=== PATIENT | male | born 1965 | race Caucasian/White ===

== ENCOUNTER 2017-12-31 16:42 | Emergency (ER) | payer SELFPAY ==
[2017-12-31 17:25] VITALS: BMI 20.3
[2017-12-31] MEDS ORDERED: SODIUM CHLORIDE 1,000 ML IV STA ×2 (18:56→20:34)
[2017-12-31] MEDS ORDERED: ACETAMINOPHEN 1000 MG/100 ML VIAL (NON FORMULARY) IVPB ONE (18:59)
[2017-12-31] MEDS ORDERED: ONDANSETRON 4 MG/2 ML VIAL IVPUSH ONE (18:59)
--- NOTE | 2017-12-31 18:59 | PDOC ---
History of Present Illness - General Chief Complaint: Shortness of Breath Stated Complaint: PCP SENT Time Seen by Provider: 12/31/17 17:44 History Source: Patient, Spouse Exam Limitations: No Limitations - History of Present Illness Initial Comments: This is a 52 YOM with h/o diet-controlled DM who p/w one week of fever, chills, nausea, decreased appetite, frequent cough productive of blood-tinged sputum, head-to-toe body aches, generalized weakness, shortness of breath, abdominal pain only when coughing, and frontal headache which has been worsening especially today. He went to see his PCP yesterday and was instructed to come into the ED if his symptoms did not improve (states no testing done in office). He has been using Tylenol and Motrin sporadically for the symptoms with minimal relief. He denies any recent sick contacts or other symptoms. Past History - Past Medical History Allergies/Adverse Reactions: Allergies Allergy/AdvReac Type Severity Reaction Status Date / Time No Known Allergies Allergy Verified 06/11/14 14:07 Home Medications: Ambulatory Orders No Home Medications 0 dose .ROUTE UTDICT 06/11/14 Amoxicillin/Potassium Clav [Augmentin 875-125 Tablet] 1 each PO BID #8 tablet Azithromycin 250 mg PO DAILY #4 tablet 12/31/17 Metformin HCl 500 mg PO BID #30 tablet 12/31/17 Metformin HCl [Glucophage -] 500 mg PO DAILY #30 tablet 12/31/17 COPD: No Diabetes: Yes - Suicide/Smoking/Psychosocial Hx Smoking History: Never smoked Hx Alcohol Use: No Drug/Substance Use Hx: No Substance Use Type: None *Physical Exam - Vital Signs Last Vital Signs Temp Pulse Resp BP Pulse Ox 99.1 F 86 18 117/77 95 12/31/17 17:22 12/31/17 18:00 12/31/17 18:00 12/31/17 18:00 12/31/17 18:00 - Physical Exam General Appearance: Yes: Nourished, Appropriately Dressed, Mild Distress, Thin, Other (dehydrated-appearing, Montenegrin-speaking adult male who is pleasant, frequently coughing with wet cough, but speaking in full sentences) HEENT: positive: EOMI, Normal Voice, Hearing Grossly Normal. negative: Scleral Icterus (R), Scleral Icterus (L), Nasal Congestion Neck: positive: Trachea midline, Supple. negative: Tender, Rigid Respiratory/Chest: positive: Respiratory Distress, Rapid RR, Crackles, Rales. negative: Accessory Muscle Use, Rhonchi, Stridor, Wheezing Cardiovascular: positive: Regular Rhythm, Regular Rate, S1, S2. negative: Edema , JVD, Murmur Gastrointestinal/Abdominal: positive: Normal Bowel Sounds, Flat, Soft. negative : Tender, Organomegaly, Pulsatile Mass, Guarding Musculoskeletal: positive: Normal Inspection. negative: Decreased Range of Motion, Vertebral Tenderness Extremity: positive: Normal Capillary Refill, Normal Inspection, Normal Range of Motion. negative: Tender, Cyanosis Integumentary: positive: Normal Color, Dry, Warm. negative: Erythema, Rash, Bruising Neurologic: positive: primary therapist II-XII NML intact (grossly), Fully Oriented, Alert, Normal Mood/Affect, Normal Response, Motor Strength 03/31 ED Treatment Course - LABORATORY CBC & Chemistry Diagram: 12/31/17 Unknown 12/31/17 Unknown Medical Decision Making - Medical Decision Making 52 YOM with h/o DM (states diet controlled) who p/w 1 week wet cough, fever, myalgias, SOB. On exam initially he is tachycardic, hypoxic on RA, frequent cough. DDX IBNLT PNA, bronchitis, influenza, viral URI, CHF or COPD exacerbation, etc. Ordered is CBCD CMP lactate BCx VBG BNP cardiac panel EKG CXR Ofluis alberto Roberts. 12/31/17 20:37 Patient's CXR shows RLL consolidation. WBC 14.0, lactate neg, glucose 378. Patient given doses of Augmentin, azithromycin, and metformin (which he was on previously). Also giving 1 liter IVF. 12/31/17 21:21 Patient had DuoNeb treatment and no longer is coughing, crackles much improved. He is comfortable with the plan to f/u with his PCP. E-Rx sent to Pt's pharmacy for Augmentin, Azithromycin, metformin. Return precautions are discussed. 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 Hicimos unas pruebas del laboratorio de la castillo y orina y los resultados dicen que tiene infeccion ( pneumonia) y tambien tiene un nivel muy alto de azucar. Le dimos unos antibioticos aqui, y tambien haritha pastilla de Metformin. Por favor obtenga las pastillas de nair farmacia. Estamos mandando unas recetas para dos antibioticos y para metformin. Es importante empezar metformin ahora, y hacer haritha eh con nair doctor primario para manana. Regrese a la kamryn de emergencias si tiene alguna sintoma nueva o que empeora. Print Language: GERMAN - Post Discharge Activity
[2017-12-31] MEDS ORDERED: ONDANSETRON 4 MG/2 ML VIAL ONE (19:09)
[2017-12-31] MEDS ORDERED: ACETAMINOPHEN INJECTION 100 ML IVPB ONE (19:10)
[2017-12-31 19:14] LABS: VENOUS PC02 43.7 mmHg (38-52); VENOUS PH 7.4 (7.32-7.42); VENOUS PO2 33.1 mmHg (28-48)
[2017-12-31 19:21] LABS: HEMATOCRIT 37.5 % (35.4-49); HEMOGLOBIN 12.5 GM/dL (11.7-16.9); MCH 30.5 pg (25.7-33.7); MCHC 33.4 g/dl (32.0-35.9); MEAN CELL VOLUME 91.4 fl (80-96); MEAN PLT VOLUME 9.1 fl (7.5-11.1); PLATELET COUNT 232 K/MM3 (134-434); RDW 13.5 % (11.9-15.9)
[2017-12-31 19:47] LABS: ALBUMIN 2.3 g/dl (3.4-5.0); ANION GAP 8 (8-16); BLOOD UREA NITROGEN 23 mg/dL (7-18); CALCIUM 7.8 mg/dL (8.5-10.1); CHLORIDE 97 mmol/L (98-107); CO2 28 mmol/L (21-32); CREATININE 0.9 mg/dL (0.7-1.3); SGOT/AST 52 U/L (15-37); SGPT/ALT 57 U/L (12-78); SODIUM 133 mmol/L (136-145)
[2017-12-31 19:50] LABS: ALK PHOS 196 U/L (45-117); BILIRUBIN,TOTAL 1.7 mg/dL (0.2-1.0); TOT PROT 6.1 g/dl (6.4-8.2)
--- NOTE | 2017-12-31 19:50 | PDOC ---
Attending Attestation - Resident Resident Name: RakeshTrudi - ED Attending Attestation I have performed the following: I have examined & evaluated the patient, The case was reviewed & discussed with the resident, I agree w/resident's findings & plan, Exceptions are as noted - HPI HPI: 12/31/17 19:50 52 yo male p/w 7 days of fever,production cough,body aches,nausea - Physicial Exam PE: 12/31/17 19:50 52 yo male p/w productive cough head ncat neck supple lungs no wheezing cvs [id number] abd no rebound ext no e/c/c neuro axox3 skin warm,dry psych appropriate - Medical Decision Making 12/31/17 21:20 pt has CAP and placed on po antibiotics , he stopped taking his metformin and he was encouraged to continue his medications and followup with his PCP
[2017-12-31] MEDS ORDERED: ALBUTEROL SO4 2.5/IPRATROPIUM 0.5 INH SOL 3 ML VIAL.NEB. NEB ONE ×2 (19:52→20:07)
[2017-12-31 20:12] LABS: GLUCOSE,RANDOM 378 mg/dL (74-106)
[2017-12-31 20:24] LABS: N-TERMINAL BNP 932.51 pg/ml (5-125)
[2017-12-31] MEDS ORDERED: AMOX TR/POT CLAV 875MG/125MG TABLETS (FP) PO ONE (20:26)
[2017-12-31] MEDS ORDERED: AZITHROMYCIN 500 MG TABLET PO ONE (20:33)
[2017-12-31] MEDS ORDERED: metFORMIN HCL 500 MG TABLET (FP) PO ONE (20:33)
[2017-12-31] MEDS ORDERED: AZITHROMYCIN 250 MG TABLET ONE (20:39)
[2017-12-31] MEDS ORDERED: metFORMIN HCL 500 MG TABLET (FP) ONE (20:40)
[2017-12-31] MEDS ORDERED: AMOX TR/POT CLAV 875MG/125MG TABLETS (FP) ONE (20:40)
[2017-12-31 21:43] LABS: PLATELET ESTIMATE ADEQUATE; TOXIC GRANULATION 2+
[2017-12-31 22:12] VITALS: BP 112/68; PULSE 88; TEMP 98.4
--- NOTE | 2018-01-01 12:47 | EKG ---
Test Reason : Blood Pressure : / mmHG Vent. Rate : 087 BPM Atrial Rate : 087 BPM P-R Int : 146 ms QRS Dur : 084 ms QT Int : 362 ms P-R-T Axes : 069 017 059 degrees QTc Int : 435 ms NORMAL SINUS RHYTHM POSSIBLE LEFT ATRIAL ENLARGEMENT CANNOT RULE OUT ANTERIOR INFARCT , AGE UNDETERMINED ABNORMAL ECG WHEN COMPARED WITH ECG OF 03-AUG-2010 23:07, T WAVE VARIATION Confirmed by SHEBA NARANJO, ROLANDO ([id number]) on 01/01/2018 12:47:38 PM Referred By: Confirmed By:ROLANDO SCRUGGS MD
== END 2017-12-31 22:12 | disposition home or self-care (01) ==
LOC: JER 16:42
PROC: 3E0F7GC Introduction of Other Therapeutic Substance into Respiratory Tract, Via Natural or Artificial Opening (ICD-10-PCS; principal; 2017-12-31)
PROC: 3E0337Z Introduction of Electrolytic and Water Balance Substance into Peripheral Vein, Percutaneous Approach (ICD-10-PCS; 2017-12-31)
PROC: 3E033NZ Introduction of Analgesics, Hypnotics, Sedatives into Peripheral Vein, Percutaneous Approach (ICD-10-PCS; 2017-12-31)
PROC: 3E033GC Introduction of Other Therapeutic Substance into Peripheral Vein, Percutaneous Approach (ICD-10-PCS; 2017-12-31)
DX: J01.81 Other acute recurrent sinusitis (principal); E11.9 Type 2 diabetes mellitus without complications
CPT/HCPCS: 36415; 71046-TC-FY; 80053; 82550; 82803; 83605; 83880; 84484; 85025; 87040; 87804; 93005; 93010; 99285-25

== ENCOUNTER 2018-01-11 14:01 | Inpatient (IN) | payer MEDICARE, OTHER ==
[2018-01-11 14:44] VITALS: BMI 18.0
--- NOTE | 2018-01-11 14:46 | PDOC ---
Rapid Medical Evaluation Time Seen by Provider: 01/11/18 14:37 Medical Evaluation: Allergies Allergy/AdvReac Type Severity Reaction Status Date / Time No Known Allergies Allergy Verified 01/11/18 14:37 01/11/18 14:42 pt c/o: rt sided chest pain, recent rll pneumonia, hx dm Pt on brief exam: decreased bs to bases, tachy, low grade temp Pt ordered for : influenza, cxr pa/lat pt to proceed to the ED: Discharge Disposition - Diagnosis Right-sided chest pain - Referrals - Patient Instructions - Post Discharge Activity
--- NOTE | 2018-01-11 16:04 | PDOC ---
Attending Attestation - [facility] HPI: 01/11/18 17:01 The patient is a 52 year old male, with a significant past medical history of DM , who presents to the emergency department with cough, right sided chest pain and shortness of breath. The patient reports he was diagnosed with pneumonia in the ED approx. one week ago. The patient reports his cough was mostly productive at first with unspecified sputum. However, he reports the cough has recently been dry. The patient also reports recent chills but denies any recent fevers. The patient reports he has lost approx. 10 lbs in the past two weeks and reports a decreased appetite. He denies any recent nausea, vomiting, constipation or diarrhea. He denies any recent hemoptysis. He denies any recent abdominal pain. Allergies:NKA Documentation prepared by Bladimir Levy, acting as medical front desk specialist for Nemo Montero DO. - Physicial Exam PE: 01/11/18 17:02 Constitutional: +Very thin, almost cachectic. Awake, alert, oriented. No acute distress. Head: Normocephalic. Atraumatic Eyes: PERRL. EOMI. Conjunctivae are not pale. ENT: Mucous membranes are moist and intact. Posterior pharynx without exudates or erythema. Uvula midline. Neck: Supple. Full ROM. No lymphadenopathy. Cardiovascular: Regular rate. Regular rhythm. S1, S2 regular. Distal pulses are 2+ and symmetric. Pulmonary/Chest: +Diminished lung sounds at the right base. No wheezing, rales or rhonchi. Abdominal: +Mildly tender to the right upper quadrant and epigastric region. Soft and non-distended. No rebound, guarding or rigidity. No organomegaly. No palpable masses. Good bowel sounds. Back: No CVA tenderness. Musculoskeletal: No edema. No cyanosis. No clubbing. Full range of motion in all extremities. Nocalf tenderness. Radial/pedal pulses are intact and 2+ bilaterally Skin: Skin is warm and dry. No petechiae. No purpura. Neurological: Alert and oriented to person, place, and time. Cranial nerves II -XII are grossly intact. Normal speech. Strength is grossly symmetric. No sensory deficits. Psychiatric: Good eye contact. Normal interaction, affect and behavior. <Bladimir Levy - Last Filed: 01/11/18 17:07> - Resident Resident Name: Soham Do - ED Attending Attestation I have performed the following: I have examined & evaluated the patient, The case was reviewed & discussed with the resident, I agree w/resident's findings & plan, Exceptions are as noted - Medical Decision Making 01/11/18 16:04 I, Dr. Nemo Montero, DO, attest that this document has been prepared under my direction and personally reviewed by me in its entirety. I further attest, that it accurately reflects all work, treatment, procedures and medical decision -making performed by me. 01/11/18 16:31 a/p: 52yo male with persistent cough despite augmentin and azithro last week for RLL PNA -night sweats, chills, persistent cough productive sputum -wt loss - no hemoptysis -no recent travel or sick contacts -hx of DM -will check labs, ekg, cxr, cultures -xray from [facility] shows worsening RLL infiltrate - will start broad spectrum abx - vanc/zosyn -ivf hydration -mild epigastric pain - will check lipase -will need admission for failed oupt abx for PNA -plan discussed with the patient who agrees with the plan <Nemo Montero - Last Filed: 01/11/18 18:29> Heart Score/ECG Review - ECG Intrepretation Comment:: 01/11/18 18:29 sinus at 94, nl axis, nl interval, lvh, t wave inversions III, no other acute findings <Nemo Montero - Last Filed: 01/11/18 18:29>
[2018-01-11] MEDS ORDERED: SODIUM CHLORIDE 1,000 ML IV STA ×2 (16:07→16:14)
--- NOTE | 2018-01-11 16:07 | PDOC ---
History of Present Illness - General Stated Complaint: FLU Time Seen by Provider: 01/11/18 14:37 - History of Present Illness Initial Comments: 01/11/18 16:45 The patient is a 52 year old male with a history of DM who presents for evaluation of SOB, cough, chest pain. The patient states that he was recently seen in the ED 1 week ago and diagnosed with a pneumonia. He was placed on azithromycin and augmentin both of which he has completed. However he continued to experience night sweats, cough, right sided chest pain, and SOB prompting his presentation to the ED today. He denies any fevers, chills, nausea, vomiting, abdominal pain, or changes with urination or bowel movements. Past History - Past Medical History Allergies/Adverse Reactions: Allergies Allergy/AdvReac Type Severity Reaction Status Date / Time No Known Allergies Allergy Verified 01/11/18 14:37 Home Medications: Ambulatory Orders No Home Medications 0 dose .ROUTE UTDICT 06/11/14 Amoxicillin/Potassium Clav [Augmentin 875-125 Tablet] 1 each PO BID #8 tablet Azithromycin 250 mg PO DAILY #4 tablet 12/31/17 Metformin HCl 500 mg PO BID #30 tablet 12/31/17 metFORMIN HCL [Glucophage -] 500 mg PO DAILY #30 tablet 12/31/17 CVA: No COPD: No DVT: No Diabetes: Yes - Immunization History Immunization Up to Date: Yes - Suicide/Smoking/Psychosocial Hx Smoking History: Never smoked Have you smoked in the past 12 months: No If you are a former smoker, when did you quit?: 5yrs Information on smoking cessation initiated: No Hx Alcohol Use: No Drug/Substance Use Hx: No Substance Use Type: None Review of Systems - Review of Systems Comments:: 01/11/18 16:50 Constitutional: :Night sweats. No fevers, chills, fatigue, malaise HEENT: No Rhinorrhea, nasal congestion, visual changes Cardiovascular: Chest pain. No syncope, palpitations, lightheadedness Respiratory: Cough, SOB. No Hemoptysis, Gastrointestinal: No Abdominal pain, Nausea, Vomiting, Constipation, Diarrhea, Melena Genitourinary: No Dysuria, Frequency, Urgency, Hesitancy, Hematuria, Flank pain Musculoskeletal: No Myalgia, arthralgia Skin: No rashes, itching, bruising, pallor Neurologic: No Headache, Dizziness, Numbness, Weakness, or Tingling Psychiatric: No Hallucinations. No SI or HI *Physical Exam - Vital Signs Last Vital Signs Temp Pulse Resp BP Pulse Ox 99.7 F H 109 H 17 118/78 93 L 01/11/18 14:37 01/11/18 14:37 01/11/18 14:37 01/11/18 14:37 01/11/18 14:37 - Physical Exam Comments: 01/11/18 16:51 General Appearance: Nourished. No Apparent Distress HEENT: EOMI, CONCETTA. No Pharyngeal Erythema, Tonsillar Exudate, Tonsillar Erythema Neck: No Cervical Lymphadenopathy Respiratory/Chest: Lungs Clear, Diminished breath sounds at the right base. No Crackles, Rales, Rhonchi, Wheezing Cardiovascular: Regular Rhythm, Regular Rate. No Murmur, Gallops, Rubs Gastrointestinal/Abdominal: Normal Bowel Sounds, Soft. Mild epigastric tenderness to palpation. No Guarding, Rebound, Musculoskeletal: No CVA Tenderness Extremity: Normal Capillary Refill Integumentary: Normal Color, Dry, Warm Neurologic: Fully Oriented, Alert, Normal Mood/Affect, Normal Response, ED Treatment Course - LABORATORY CBC & Chemistry Diagram: 01/11/18 17:07 01/11/18 17:07 - ADDITIONAL ORDERS Additional order review: 01/11/18 14:45 Influenza Types A,B Antigen (VALARIE) - Preliminary Nasopharyngeal Swab - Preliminary Medical Decision Making - Medical Decision Making 01/11/18 16:52 The patient is a 52 year old male with a history of DM who presents for evaluation of SOB, cough, chest pain. Differential includes but is not limited to: Pneumonia, Sepsis, ACS, infectious, metabolic derangement. Given the patient's continued symptoms with a known pneumonia, it is likely the patient's symptoms are due to a pneumonia that has failed outpatient therapy. We will send a cbc, cmp, troponin, ekg, lactate, lipase, and vbg. Chest plain film done by [facility] demonstrates a worsening right lower lobe pneumonia as read by our radiologist. We will treat the patient with 2 L iv fluids, vanc and zosyn. The patient appears thin on exam and reports a 10 lb weight loss and thus we will obtain a chest ct to evaluate for any possible neoplasm that could be responsible for his pneumonia failing outpatient therapy. We will continue to monitor and reassess. 01/11/18 20:48 CBC demonstrates an elevated WBC to 19.1. CMP demonstrates a hyponatremia to 127 and hyperglycemia to 400s. Given the patient's worsening pneumonia and desaturation, he will require admission for iv antibiotics and further management. It is likely his pneumonia was failing to resolve due to his hyperglycemic state. We discussed the case with the hospitalist team who accepted the patient for admission. We discussed the plan with the patient who is agreeable. *DC/Admit/Observation/Transfer Diagnosis at time of Disposition: Right-sided chest pain, Hyperglycemia Pneumonia Qualifiers: Pneumonia type: due to unspecified organism Laterality: right Lung location: lower lobe of lung Qualified Code(s): J18.1 - Lobar pneumonia, unspecified organism Diabetes mellitus Qualifiers: Diabetes mellitus type: other specified (including JAIME) Diabetes mellitus complication status: with unspecified complications Diabetes mellitus group home insulin use: unspecified group home insulin use status Qualified Code(s): E13.8 - Other specified diabetes mellitus with unspecified complications - Discharge Dispostion Condition at time of disposition: Guarded Admit: Yes - Referrals - Patient Instructions - Post Discharge Activity
[2018-01-11] MEDS ORDERED: MAG HYDROX/AL HYDROX/SIMETH 30 ML UNIT-DOSE CUP PO ONE (16:22)
[2018-01-11] MEDS ORDERED: PIPERACILLIN/TAZOB 3.375 GM 50 ML IVPB ONE (16:35)
[2018-01-11] MEDS ORDERED: VANCOMYCIN 1,250 MG in DEXTROSE 5%-WATER - 250 ML IVPB ONE ×2 (16:35→18:45)
[2018-01-11 17:19] LABS: HEMATOCRIT 38.4 % (35.4-49); HEMOGLOBIN 12.7 GM/dL (11.7-16.9); MCH 29.9 pg (25.7-33.7); MCHC 33.2 g/dl (32.0-35.9); MEAN CELL VOLUME 90.3 fl (80-96); PLATELET COUNT 775 K/MM3 (134-434); RBC 4.25 M/mm3 (4.00-5.60); RDW 13.4 % (11.9-15.9); WHITE BLOOD COUNT 19.3 K/mm3 (4.0-10.0)
[2018-01-11] MEDS ORDERED: MAG HYDROX/AL HYDROX/SIMETH 30 ML UNIT-DOSE CUP ONE (17:20)
[2018-01-11 17:21] LABS: ADD RBC MORPHOLOGY YES
[2018-01-11] MEDS ORDERED: PIPERACILLIN/TAZOB 3.375 GM 3.375 GM/50 ML BAG IVPB ONE (17:21)
[2018-01-11 17:58] LABS: INR 1.17 (0.82-1.09); PROTHROMBIN TIME (PATIENT) 13.2 SEC (9.98-11.88)
[2018-01-11 18:01] LABS: ACTIVATED PTT 41.1 SECONDS (26.9-34.4)
[2018-01-11 18:16] LABS: PLATELET ESTIMATE INCREASED
[2018-01-11 18:23] LABS: ALBUMIN 2.4 g/dl (3.4-5.0); ANION GAP 8 (8-16); BLOOD UREA NITROGEN 14 mg/dL (7-18); CALCIUM 7.9 mg/dL (8.5-10.1); CHLORIDE 91 mmol/L (98-107); CO2 28 mmol/L (21-32); CREATININE 0.8 mg/dL (0.7-1.3); POTASSIUM 5.4 mmol/L (3.5-5.1); SGOT/AST 56 U/L (15-37); SGPT/ALT 69 U/L (12-78); SODIUM 127 mmol/L (136-145)
[2018-01-11 18:26] LABS: ALK PHOS 288 U/L (45-117); BILIRUBIN,TOTAL 1.3 mg/dL (0.2-1.0); TOT PROT 8.4 g/dl (6.4-8.2)
[2018-01-11 18:31] LABS: GLUCOSE,RANDOM 448 mg/dL (74-106)
--- NOTE | 2018-01-11 20:04 | HP ---
CHIEF COMPLAINT: SOB x 1 day, chest pain x 2days, weight loss and night sweats x 1 week, Cough x 2 weeks PCP: HISTORY OF PRESENT ILLNESS: 52 yo M with PMHx of DM presenting with Cough, SOB, chest pain. Cough is productive of whitish sputum, non bloody with associated R pleuritic chest pain. The pain is pressure like- worse with coughing and movement and reproducible on palpation. There is no relationship with fooding , no acid reflux and no nausea and vomiting. Pt noticed SOB today, which the pt says is worse with exertion with associated PND and orthopnea. The pt has noticed night sweats and chills, with no objective fevers. He has also noted a 20Lb weight loss over the past one week due to loss of appetite. Pt was recently treated here 12/31/17 for RLL PNA after presenting with fever and cough as out px with augmentin /azithro. Since the last presentation for PNA, his SOB is improved, but he now has pleuritic chest pain. New CXR shows worsening pneumonia. PT was noted to have tested negative for TB one month ago. During the hx pt noticed generalized abdominal pain but has no dysuria, no increased urinary frequency, no change in bowel habit. Last BM was this am brownish, non bloody. No seizures, headaches, seizures. Pt lives with his family with no hx of contact with any sick persons and no recent travel ER course was notable for: (1) tachy-108, WBC-19.3, Plts-775 (2)Glu-448, Na-127, K-5.4, Alk-288 (3)CXR- worsening RLL PNA (4) Vanc/zosyn, Iv Fluid Normal saline, mylanta Recent Travel: PAST MEDICAL HISTORY: DM x 2years on metformin PAST SURGICAL HISTORY: Social History: Smoking: Former smoker- stopped 5 years ago. Started smoking at 19years- 3cigs/ day Alcohol:social- last drink3 months ago Drugs: None Family History: Allergies No Known Allergies Allergy (Verified 01/11/18 14:37) HOME MEDICATIONS: Home Medications Medication Instructions Recorded No Home Medications 0 dose .ROUTE UTDICT 06/11/14 Amoxicillin/Potassium Clav 1 each PO BID #8 tablet 12/31/17 [Augmentin 875-125 Tablet] Azithromycin 250 mg PO DAILY #4 tablet 12/31/17 Metformin HCl 500 mg PO BID #30 tablet 12/31/17 metFORMIN HCL [Glucophage -] 500 mg PO DAILY #30 tablet 12/31/17 REVIEW OF SYSTEMS CONSTITUTIONAL: chills+, loss of appetite+, weight change+ Absent: fever, diaphoresis, generalized weakness, malaise, HEENT: Absent: rhinorrhea, nasal congestion, throat pain, throat swelling, difficulty swallowing, mouth swelling, ear pain, eye pain, visual changes CARDIOVASCULAR: chest pain+, Absent: syncope, palpitations, irregular heart rate, lightheadedness, peripheral edema RESPIRATORY: cough+, shortness of breath+, dyspnea with exertion+, orthopnea+, Absent: wheezing, stridor, hemoptysis GASTROINTESTINAL: abdominal pain+ Absent:abdominal distension, nausea, vomiting, diarrhea, constipation, melena, hematochezia GENITOURINARY: Absent: dysuria, frequency, urgency, hesitancy, hematuria, flank pain, genital pain MUSCULOSKELETAL: Absent: myalgia, arthralgia, joint swelling, back pain, neck pain SKIN: Absent: rash, itching, pallor HEMATOLOGIC/IMMUNOLOGIC: Absent: easy bleeding, easy bruising, lymphadenopathy, frequent infections ENDOCRINE: Absent: unexplained weight gain, unexplained weight loss, heat intolerance, cold intolerance NEUROLOGIC: Absent: headache, focal weakness or paresthesias, dizziness, unsteady gait, seizure, mental status changes, bladder or bowel incontinence PSYCHIATRIC: Absent: anxiety, depression, suicidal or homicidal ideation, hallucinations. PHYSICAL EXAMINATION Vital Signs - 24 hr 01/11/18 14:37 Temperature 99.7 F H Pulse Rate 109 H Respiratory 17 Rate Blood Pressure 118/78 O2 Sat by Pulse 93 L Oximetry (%) GENERAL: Cachectic, thin, awake, alert, and fully oriented, in no acute respiratory distress. HEAD: Normal with no signs of trauma. EYES: Pupils equal, round and reactive to light, extraocular movements intact, sclera anicteric, conjunctiva not pale. EARS, NOSE, THROAT: oropharynx clear without exudates. Moist mucous membranes. NECK: Normal range of motion, supple without lymphadenopathy, JVD, or masses. LUNGS: Breath sounds reduced lung bases, > R, No wheezes HEART: Regular rhythm, tachycardic, S1 and S2 ABDOMEN: Scaphoid, Soft, mild generalized tenderness. suprapubic region, reduced bowel sounds, no guarding, no rebound, no masses. MUSCULOSKELETAL: Normal range of motion at all joints. No bony deformities or tenderness. UPPER EXTREMITIES: 2+ pulses, warm, well-perfused. No cyanosis. No clubbing. No peripheral edema. LOWER EXTREMITIES: 2+ pulses, warm, well-perfused. No calf tenderness. No peripheral edema. NEUROLOGICAL: Cranial nerves II-XII intact. Normal speech. No facial droop. PSYCHIATRIC: Cooperative. Good eye contact. Appropriate mood and affect. Laboratory Results - last 24 hr 01/11/18 01/11/18 01/11/18 17:07 17:07 17:07 WBC 19.3 H D RBC 4.25 Hgb 12.7 Hct 38.4 MCV 90.3 MCH 29.9 MCHC 33.2 RDW 13.4 Plt Count 775 H D MPV 8.0 D Neutrophils % No Result Required. Neutrophils % (Manual) 82.0 D Band Neutrophils % 4.0 Lymphocytes % No Result Required. Lymphocytes % (Manual) 10.0 D Monocytes % (Manual) 4 Eosinophils % (Manual) 0.0 Basophils % (Manual) 0.0 Platelet Estimate Increased PT with INR 13.20 H INR 1.17 H PTT (Actin FS) 41.1 H VBG pH POC VBG pCO2 POC VBG pO2 Mixed VBG HCO3 Sodium 127 L Potassium 5.4 H D Chloride 91 L Carbon Dioxide 28 Anion Gap 8 BUN 14 D Creatinine 0.8 Creat Clearance w eGFR > 60 Random Glucose 448 H* Lactic Acid Calcium 7.9 L Total Bilirubin 1.3 H D AST 56 H ALT 69 D Alkaline Phosphatase 288 H D Creatine Kinase 25 L Troponin I < 0.02 Total Protein 8.4 H D Albumin 2.4 L Blood Type Antibody Screen 01/11/18 01/11/18 01/11/18 17:07 17:20 17:20 WBC RBC Hgb Hct MCV MCH MCHC RDW Plt Count MPV Neutrophils % Neutrophils % (Manual) Band Neutrophils % Lymphocytes % Lymphocytes % (Manual) Monocytes % (Manual) Eosinophils % (Manual) Basophils % (Manual) Platelet Estimate PT with INR INR PTT (Actin FS) VBG pH Cancelled POC VBG pCO2 Cancelled POC VBG pO2 Cancelled Mixed VBG HCO3 Cancelled Sodium Potassium Chloride Carbon Dioxide Anion Gap BUN Creatinine Creat Clearance w eGFR Random Glucose Lactic Acid 1.7 Calcium Total Bilirubin AST ALT Alkaline Phosphatase Creatine Kinase Troponin I Total Protein Albumin Blood Type O POSITIVE Antibody Screen Negative ASSESSMENT/PLAN: 52 yo M with PMHx of DM (poorly compliant) presenting with Cough, SOB, chest pain after recent tx for RLL PNA with augmentin/azithro found to have worsening PNA. Chest Pain: Most likely pleuritic 2/2 to CAP Worsened with deep breathing, Pain is reproducible, negative trops Levoflox Sepsis 2/2 CAP SIRs- WBC-19.3, tachycardia-108, CXR- RLL infiltrates Worsening PNA, night sweats, 10lb wt loss in a week Failed outpx treatment on augmentin/azithro Received Iv vancomycin- 1.25g in ED Received iv zosyn 3.35 in ED Start Levofloxacin 500mg daily ID consult- Dr [place] CT chest -pleural effusions with multiple pneumonic infiltrates Bld culture pending Sputum culture pending Flu swab negative CBC, CMP Urine culture Urine Ag for legionella Trops <0.02 Lactic acid-1.7 Received 2L@ Normal saline TSH Poorly controlled DM with Hyperglycemia Iv Fluids Normal saline @100/hr ISS ACHS BGMS ACHS Repeat BMP- 2300 Hgb A1c Follow outpx continuity clinic Hold metformin 500mg daily PO Hyponatremia Na measured-127 In setting of hyperglycemia Corrected glucose-133 iv normal saline @100/hr Repeat BMP Hyperkalemia K-5.4 iv normal saline @100/hr Repeat BMP Elevated Alk Phosph: Abd pain RUQ US FEN: iv normal saline @100/hr Monitor lytes and replete as needed Diabetic diet Prophylaxis: DVT- heparin 5000iu tid Dispo: Med Surg Visit type - Emergency Visit Emergency Visit: Yes ED Registration Date: 01/11/18 Care time: The patient presented to the Emergency Department on the above date and was hospitalized for further evaluation of their emergent condition. - New Patient This patient is new to me today: Yes Date on this admission: 01/12/18 - Critical Care Critical Care patient: No
[2018-01-11] MEDS: SODIUM CHLORIDE 1,000 ML IV SCH (21:43)
[2018-01-11 22:40] LABS: MAGNESIUM 1.8 mg/dL (1.8-2.4); PHOSPHOROUS 3.5 mg/dL (2.5-4.9)
[2018-01-11] MEDS: INSULIN SLIDING SCALE (NOVOLOG) 1 VIAL SQ SCH (23:06)
--- NOTE | 2018-01-11 23:28 | PN ---
Teaching Attending Note Name of Resident: Yajaira Baca ATTENDING PHYSICIAN STATEMENT I saw and evaluated the patient. I reviewed the resident's note and discussed the case with the resident. I agree with the resident's findings and plan as documented. SUBJECTIVE:52yo M with PMH DM and recent treatment for PNA with azithro and augmentin x4 days presented with productive cough with pleuritic CP x1 week. assoc with subjective fevers, chills, night sweats and anorexia with 10 lb weight loss. states he never really felt better since starting the abx. never been hospitalized before. had TB skin testing last month and negative per . denies sick contacts or recent travel. was born in [place] and been here for over a year. had vaccinations as a child, never flu shot OBJECTIVE: Last Vital Signs Temp Pulse Resp BP Pulse Ox 99.7 F H 109 H 17 118/78 93 L 01/11/18 14:37 / 14:37 01/11/18 14:37 01/11/18 14:37 01/11/18 14:37 General thin appearing male, lethargic CV S1 S2 tachy Lungs poor inspiratory effort, crackles R base, mild expiratory wheezing Abdomen soft NT/ND Extremities no pedal edema, no rashes ASSESSMENT AND PLAN: 52yo M with PMH DM and recently treated PNA presenting with productive cough and CP 1. Sepsis due to multilobar PNA wiht loculated effusion- medicine admission. tachycardia and leuokcytosis. small effusion likely too small to tap. day team can discuss possibility with IR vs watchful waiting to see if resolves. VBG pending. received vanco and zosyn in the ER. switch to levaquin. ID consulted. Cultures sent in the ER including sputum, influenza. skip send urine legionella and strep. 2. Hyperglycemia- hold oral agents. diabetic diet. iss, bgm. check A1c 3. Hyperkaelemia- no peaked T waves. repeat labs 4. Pseudohyponatremia- corrected Na 134. 5. Pleuritic CP- likely due to PNA. CE neg x1. less liekly given duration of symptoms. no ST changes on EKG 6. Elevated Alk phos- check RUQ u/s 7. DVT ppx- hep sq
[2018-01-11] MEDS: ACETAMINOPHEN 325 MG TABLET (FP) PO PRN (23:38)
[2018-01-11 23:59] LABS: URINE APPEARANCE CLEAR; URINE BILIRUBIN NEGATIVE (NEGATIVE); URINE BLOOD NEGATIVE (NEGATIVE); URINE COLOR AMBER; URINE GLUCOSE (UA) 3+ (NEGATIVE); URINE KETONE NEGATIVE (NEGATIVE); URINE LEUK ESTERASE NEGATIVE (NEGATIVE); URINE NITRITE NEGATIVE (NEGATIVE); URINE PROTEIN NEGATIVE (NEGATIVE)
[2018-01-12 00:24] LABS: ANION GAP 9 (8-16); BLOOD UREA NITROGEN 11 mg/dL (7-18); CALCIUM 7.6 mg/dL (8.5-10.1); CHLORIDE 98 mmol/L (98-107); CO2 25 mmol/L (21-32); CREATININE 0.6 mg/dL (0.7-1.3); POTASSIUM 4.6 mmol/L (3.5-5.1); SODIUM 132 mmol/L (136-145)
[2018-01-12 00:28] LABS: GLUCOSE,RANDOM 358 mg/dL (74-106)
[2018-01-12] MEDS: HEPARIN NA (PORCINE) 5,000 UNITS/ML 1ML VIAL SQ SCH ×3 (05:37→21:21)
[2018-01-12] MEDS: INSULIN SLIDING SCALE (NOVOLOG) 1 VIAL SQ SCH ×4 (06:03→21:21)
[2018-01-12 08:10] LABS: HEMATOCRIT 34.4 % (35.4-49); HEMOGLOBIN 11.5 GM/dL (11.7-16.9); MCH 30.1 pg (25.7-33.7); MCHC 33.3 g/dl (32.0-35.9); MEAN CELL VOLUME 90.5 fl (80-96); PLATELET COUNT 695 K/MM3 (134-434); RDW 13.6 % (11.9-15.9); WHITE BLOOD COUNT 23.1 K/mm3 (4.0-10.0)
[2018-01-12 08:42] LABS: ALBUMIN 1.7 g/dl (3.4-5.0); ANION GAP 8 (8-16); BLOOD UREA NITROGEN 11 mg/dL (7-18); CALCIUM 7.1 mg/dL (8.5-10.1); CHLORIDE 102 mmol/L (98-107); CO2 26 mmol/L (21-32); CREATININE 0.4 mg/dL (0.7-1.3); GLUCOSE,RANDOM 187 mg/dL (74-106); SGOT/AST 29 U/L (15-37); SGPT/ALT 44 U/L (12-78); SODIUM 136 mmol/L (136-145)
[2018-01-12 08:52] LABS: ALK PHOS 188 U/L (45-117); BILIRUBIN,TOTAL 1.2 mg/dL (0.2-1.0); TOT PROT 6.3 g/dl (6.4-8.2)
--- NOTE | 2018-01-12 09:11 | EKG ---
Test Reason : Blood Pressure : / mmHG Vent. Rate : 094 BPM Atrial Rate : 094 BPM P-R Int : 142 ms QRS Dur : 082 ms QT Int : 358 ms P-R-T Axes : 070 008 063 degrees QTc Int : 447 ms POOR DATA QUALITY, INTERPRETATION MAY BE ADVERSELY AFFECTED NORMAL SINUS RHYTHM POSSIBLE LEFT ATRIAL ENLARGEMENT Confirmed by JARED AGUDELO MD ([id number]) on 01/12/2018 9:11:02 AM Referred By: Confirmed By:JARED AGUDELO MD
[2018-01-12 09:26] LABS: MAGNESIUM 1.8 mg/dL (1.8-2.4); PHOSPHOROUS 2.1 mg/dL (2.5-4.9)
[2018-01-12 10:27] LABS: ANISOCYTOSIS 2+; MACROCYTOSIS 0; PLATELET ESTIMATE INCREASED
[2018-01-12 10:29] LABS: INR 1.18 (0.82-1.09); PROTHROMBIN TIME (PATIENT) 13.3 SEC (9.98-11.88)
[2018-01-12 10:32] LABS: ACTIVATED PTT 39.7 SECONDS (26.9-34.4)
[2018-01-12] MEDS: SODIUM CHLORIDE 1,000 ML IV SCH (10:52)
[2018-01-12] MEDS ORDERED: INSULIN (NOVOLOG) ASPART 100 UNITS/ML 10ML VIAL ONE ×2 (12:09→21:25)
[2018-01-12] MEDS ORDERED: SODIUM CHLORIDE 1,000 ML IV SCH (12:20)
--- NOTE | 2018-01-12 12:22 | PN ---
Physical Exam: SUBJECTIVE: Patient seen and examined. He c/o chest pain with his breathing, not his heart. he has a productive wet cough, denies chills, fever. OBJECTIVE: Vital Signs Period Temp Pulse Resp BP Sys/Jc Pulse Ox Last 24 Hr 98.6 F-99.8 F 81-109 17-22 107-125/64-78 93-94 PE Gen: thin Neuro: alert, awake, cn 2-12intact Pulm: diminished, distant crackles + wet cough CV: s1 s2 rrr Abd: s nt nd +bs Ext: warm, no le edema Laboratory Results - last 24 hr 01/12/18 01/12/18 01/12/18 05:27 08:00 08:00 WBC 23.1 H RBC 3.80 L Hgb 11.5 L Hct 34.4 L MCV 90.5 MCH 30.1 MCHC 33.3 RDW 13.6 Plt Count 695 H MPV 8.0 Neutrophils % Quilt Sewer Neutrophils % (Manual) 75.0 Band Neutrophils % 0.0 Lymphocytes % Quilt Sewer Lymphocytes % (Manual) 9.0 Monocytes % Quilt Sewer Monocytes % (Manual) 11 H D Eosinophils % Quilt Sewer Eosinophils % (Manual) 1.0 D Basophils % Quilt Sewer Basophils % (Manual) 2.0 D Myelocytes % (Man) 0 Promyelocytes % (Man) 0 D Nucleated RBC % 0 Metamyelocytes 0 Hypochromia 0 Platelet Estimate Increased Polychromasia 0 Poikilocytosis 0 Anisocytosis 2+ Microcytosis 2+ Macrocytosis 0 PT with INR INR PTT (Actin FS) VBG pH POC VBG pCO2 POC VBG pO2 Mixed VBG HCO3 Sodium 136 Potassium 4.0 Chloride 102 Carbon Dioxide 26 Anion Gap 8 BUN 11 Creatinine 0.4 L D Creat Clearance w eGFR > 60 POC Glucometer 234 Random Glucose 187 H D Hemoglobin A1c % Lactic Acid Calcium 7.1 L Phosphorus Magnesium Total Bilirubin 1.2 H AST 29 D ALT 44 D Alkaline Phosphatase 188 H D Creatine Kinase Troponin I Total Protein 6.3 L D Albumin 1.7 L D Lipase TSH 0.94 Urine Color Urine Appearance Urine pH Ur Specific [place] Urine Protein Urine Glucose (UA) Urine Ketones Urine Blood Urine Nitrite Urine Bilirubin Urine Urobilinogen Ur Leukocyte Esterase Acetone, Qual Blood Type Antibody Screen 01/12/18 01/12/18 01/12/18 08:00 08:00 08:00 PT with INR INR PTT (Actin FS) Hemoglobin A1c % 12.5 H Phosphorus 2.1 L D Magnesium 1.8 TSH 0.94 01/12/18 08:30 PT with INR 13.30 H INR 1.18 H PTT (Actin FS) 39.7 H Hemoglobin A1c % Phosphorus Magnesium TSH Active Medications Generic Name Dose Route Start Last Admin Trade Name Freq PRN Reason Stop Dose Admin Acetaminophen 650 mg 01/11/18 23:24 01/11/18 23:38 Tylenol - PO 650 mg Q6H PRN Administration fever or pain Heparin Sodium (Porcine) 5,000 unit 01/12/18 06:00 01/12/18 05:37 Heparin - SQ 5,000 unit TID MICHELLE Administration Sodium Chloride 1,000 mls @ 100 mls/hr 01/11/18 21:30 01/12/18 10:52 Normal Saline - IV 100 mls/hr ASDIR MICHELLE Administration Levofloxacin 750 mg in 150 mls @ 100 mls/hr 01/12/18 10:00 01/12/18 10:52 Levaquin 750 Mg Premixed Ivpb - IVPB 100 mls/hr DAILY MICHELLE Administration Insulin Aspart 1 vial 01/11/18 22:00 01/12/18 12:12 Novolog Vial Sliding Scale - SQ 6 units ACHS MICHELLE Administration Protocol Potassium Phos/Sodium Phos 2 packet 01/12/18 12:20 Phos-Nak Packet - PO 01/12/18 12:21 ONCE ONE Assessment: 52 year old male with PMH DM II and recently treated PNA presented with productive cough and CP, failing oupt pna treatment Plan: 1. Sepsis due to multilobar PNA with loculated effusion - Rising leukocytosis, afebrile - Vanco/zosyn in ED - Continue levaquin - Continue ivf x1L - Duonebs qid - Influenza negative - Urine, blood cx pending - Urine antigen uncollected - Further recs per ID consult 2. RLL infiltrate - CT chest pleural effusion upper and lower chest; loculated, mediastinal lymph node - Pulm consulted 3. Elevated alk phos - Downtrending - Us abd negative 4. Pleurtic cp - Likely due to above pulmonary 5. DM II, uncontrolled - Hbg a1c 12.5 - ISS, BGM ACHS 6. Hypophosphatemia - Kphos 2pks x1 now 7. Thrombocytosis - Appears reactive, downtrended today - Monitor 8. DVT ppx - Heparin sq Visit type - Emergency Visit Emergency Visit: Yes ED Registration Date: 01/11/18 Care time: The patient presented to the Emergency Department on the above date and was hospitalized for further evaluation of their emergent condition. - New Patient This patient is new to me today: Yes Date on this admission: 01/12/18 - Critical Care Critical Care patient: No
[2018-01-12] MEDS ORDERED: NAPH,MB-DB/K PH,MBDB POWDER PACKET PO ONE (13:00)
--- NOTE | 2018-01-12 13:42 | CON.PULM ---
Consult Consult Specialty:: PULMONARY Referred by:: SAAD Reason for Consultation:: PNEUMONIA - History of Present Illness Chief Complaint: COUGH/FEVER/SOB/WEIGHT LOSS History of Present Illness: The patient is a 52 year old male with a history of DM who presents for evaluation of SOB, cough, chest pain. The patient states that he was recently seen in the ED 1 week ago and diagnosed with a pneumonia. He was placed on azithromycin and augmentin both of which he has completed. However he continued to experience night sweats, cough, right sided chest pain, and SOB prompting his presentation to the ED today. He denies any fevers, chills, nausea, vomiting, abdominal pain, or changes with urination or bowel movements. He was treated for ? positive ppd with 9 pills once a week for 9 months. Details are fuzzy as patient is not clear on the details. Patient appears cachectic. 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 No: COPD, O2 Dependent, Previously Intubated Gastrointestinal: No: Ascites Hepatobiliary: No: Cirrhosis Renal/: No: Renal Failure Heme/Onc: No: Anemia Psych: No: Addictions - Alcohol/Substance Use Hx Alcohol Use: No History of Substance Use: reports: None - Smoking History Smoking history: Former smoker Have you smoked in the past 12 months: No If you are a former smoker, when did you quit?: 5yrs - Social History Usual Living Arrangement: With Spouse Place of : Other History of Recent Travel: No Home Medications - Allergies Allergies/Adverse Reactions: Allergies Allergy/AdvReac Type Severity Reaction Status Date / Time No Known Allergies Allergy Verified 01/11/18 14:37 - Home Medications Home Medications: Ambulatory Orders No Home Medications 0 dose .ROUTE UTDICT 06/11/14 Amoxicillin/Potassium Clav [Augmentin 875-125 Tablet] 1 each PO BID #8 tablet Azithromycin 250 mg PO DAILY #4 tablet 12/31/17 Metformin HCl 500 mg PO BID #30 tablet 12/31/17 metFORMIN HCL [Glucophage -] 500 mg PO DAILY #30 tablet 12/31/17 Family Disease History - Family Disease History Family History: Unable to Obtain Review of Systems - Review of Systems Constitutional: reports: Fever, Lethargy, Loss of Appetite, Unintentional Wgt. Loss, Weakness Eyes: denies: Blurred Vision HENT: denies: Difficult Swallowing Neck: denies: Decreased ROM Cardiovascular: reports: Chest Pain (right posterior) Respiratory: reports: Cough, Exercise Intolerance, SOB, SOB on Exertion. denies : Hemoptysis, Orthopnea, Wheezing Gastrointestinal: denies: Abdominal Pain Genitourinary: denies: Burning Breasts: reports: No Symptoms Reported Musculoskeletal: reports: Back Pain Neurological: denies: Change in LOC, Confusion Physical Exam Vital Sings: Vital Signs Temperature 98.6 F 01/12/18 10:42 Pulse Rate 98 H 01/12/18 10:42 Respiratory Rate 20 01/12/18 10:42 Blood Pressure 114/70 01/12/18 10:42 O2 Sat by Pulse Oximetry (%) 94 L 01/11/18 19:52 Constitutional: Yes: Anxious, Cachectic Eyes: Yes: EOM Intact HENT: Yes: Normocephalic Neck: Yes: Trachea Midline Cardiovascular: Yes: Tachycardia, S1, S2 Respiratory: Yes: Diminished, Rhonchi Gastrointestinal: Yes: Normal Bowel Sounds, Abdomen, Obese Edema: No Neurological: Yes: Alert Labs: CBC, BMP 01/12/18 08:00 01/12/18 08:00 reviewed Imaging - Results Chest X-ray: Report Reviewed, Image Reviewed Cat Scan: Report Reviewed, Image Reviewed Ultrasound: Report Reviewed Assessment/Plan CACHEXIA/SPUTUM/FEVER/SOB/PLEURITIC RIGHT POSTERIOR CHEST PAIN/BIBASILAR CONSOLIDATIONS ON CT CHEST DISTANT UNCLEAR HISTORY OF TREATMENT FOR TB DISEASE (?+PPD) WITH 9 PILLS ONCE A WEEK FOR 9 MONTHS RECENT DUAL ANTIBIOTIC TREATMENT OUTPATIENT FOR PNEUMONIA WITHOUT IMPROVEMENT (LAST WEEK) ISOLATION UNTIL FURTHER SWABS AND SPUTUMS CAN BE ANALYZED WILL CALL BOARD OF [facility] FOR FURTHER DETAILS AWAIT ID INPUT HAVE ORDERED SPUTUM AFB/GRAM STAIN/CULTURE HIV TEST URINE ANTIGENS FOR STREP/LEGIONELLA BLOOD CULTURES PENDING Leyla THOMAS MD
--- NOTE | 2018-01-12 14:55 | CON.ID ---
Consult Consult Specialty:: infectious disease Referred by:: hospitalist Reason for Consultation:: pneumonia - History of Present Illness Chief Complaint: cough History of Present Illness: 52 ray old man pmh niddm, seen in ED on 12/31 with one week of cough- matthews sputum , and pleuritic chest pain on the right he had a cxray and was treated with augmentin/zithromax for one week for a RLL pneumonia no hemoptysis night sweats weight loss ?+PPD in [facility] about 5 years ago- attempting to reach [facility] ?pills for one month notes SOB and abdominal pain no hisotyr of JORDY wilks smoker stopped 5 years ago no dental work - Past Medical History 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 Place of : Other ([place]) History of Recent Travel: No Home Medications - Allergies Allergies/Adverse Reactions: Allergies Allergy/AdvReac Type Severity Reaction Status Date / Time No Known Allergies Allergy Verified 01/11/18 14:37 - Home Medications Home Medications: Ambulatory Orders No Home Medications 0 dose .ROUTE UTDICT 06/11/14 Amoxicillin/Potassium Clav [Augmentin 875-125 Tablet] 1 each PO BID #8 tablet Azithromycin 250 mg PO DAILY #4 tablet 12/31/17 Metformin HCl 500 mg PO BID #30 tablet 12/31/17 metFORMIN HCL [Glucophage -] 500 mg PO DAILY #30 tablet 12/31/17 Family Disease History - Family Disease History Family History: Denies Review of Systems - Review of Systems Constitutional: reports: Loss of Appetite, Night Sweats, Unintentional Wgt. Loss , Weakness Eyes: reports: No Symptoms HENT: reports: No Symptoms. denies: Difficult Swallowing Neck: reports: No Symptoms Cardiovascular: reports: Chest Pain Respiratory: reports: Cough Gastrointestinal: reports: Abdominal Pain Genitourinary: reports: No Symptoms Physical Exam Vital Signs: Vital Signs Temperature 98.6 F 01/12/18 10:42 Pulse Rate 98 H 01/12/18 10:42 Respiratory Rate 20 01/12/18 10:42 Blood Pressure 114/70 01/12/18 10:42 O2 Sat by Pulse Oximetry (%) 94 L 01/11/18 19:52 Constitutional: Yes: No Distress, Calm, Thin Eyes: Yes: Conjunctiva Clear, EOM Intact HENT: Yes: Atraumatic, Normocephalic. No: Thrush, Tonsillar Exudate Neck: Yes: Supple, Trachea Midline Cardiovascular: Yes: Regular Rate and Rhythm Respiratory: Yes: Diminished (right lower lobe) Gastrointestinal: Yes: Normal Bowel Sounds, Soft. No: Tenderness, Epigastrium Extremities: Yes: WNL Edema: No Peripheral Pulses WNL: Yes Neurological: Yes: Alert, Oriented Labs: CBC, BMP 01/12/18 08:00 01/12/18 08:00 Microbiology 01/12/18 05:03 Urine For Antigen Detection Legionella Antigen - Final 01/12/18 05:03 Urine For Antigen Detection Streptococcus pneumoniae Antigen (M - Final 01/11/18 14:45 Nasopharyngeal Swab Influenza Types A,B Antigen (VALARIE) - Preliminary 01/11/18 14:45 Nasopharyngeal Swab - Preliminary Imaging - Results Chest X-ray: Report Reviewed, Image Reviewed Cat Scan: Report Reviewed, Image Reviewed Problem List - Problems (1) Pneumonia Code(s): J18.9 - PNEUMONIA, UNSPECIFIED ORGANISM Qualifiers: Pneumonia type: due to unspecified organism Laterality: right Lung location: lower lobe of lung Qualified Code(s): J18.1 - Lobar pneumonia, unspecified organism (2) Diabetes mellitus Code(s): E11.9 - TYPE 2 DIABETES MELLITUS WITHOUT COMPLICATIONS Qualifiers: Diabetes mellitus type: other specified (including JAIME) Diabetes mellitus complication status: with unspecified complications Diabetes mellitus fpc insulin use: unspecified intermediate frame tender insulin use status Qualified Code(s): E13.8 - Other specified diabetes mellitus with unspecified complications Assessment/Plan pneumonia-has failed outpt management vanco/zosyn to cover MRSA, GNR and STREP doubt atympical finished outpt zithromax for 7 days history of positive PPD with weight loss and fevers, abnormal LFTS isolation HIV sputum afb routine sputum NAAT for MTB hep serology sonogram
[2018-01-12] MEDS ORDERED: PIPERACILLIN/TAZOB 4.5 GM/100 ML PRE-DOCKED IVPB SCH (15:00)
[2018-01-12] MEDS ORDERED: VANCOMYCIN 1,000 MG VIAL (RESTRICTED TO ID ONLY) IVPB SCH (15:00)
[2018-01-12] MEDS: ALBUTEROL SO4 2.5/IPRATROPIUM 0.5 INH SOL 3 ML VIAL.NEB. NEB SCH (16:34)
[2018-01-12] MEDS ORDERED: PT OWN MED DRAWER 7, Y5N ONE (17:22)
[2018-01-12] MEDS: PIPERACILLIN/TAZOB 4.5 GM 4.5 GM in DEXTROSE 5%-WATER - 100 ML IVPB SCH ×2 (17:30→21:01)
[2018-01-12] MEDS: VANCOMYCIN 750 MG in DEXTROSE 5%-WATER - 250 ML IVPB SCH (17:31)
[2018-01-13] MEDS: PIPERACILLIN/TAZOB 4.5 GM 4.5 GM in DEXTROSE 5%-WATER - 100 ML IVPB SCH ×3 (02:30→17:36)
[2018-01-13] MEDS: VANCOMYCIN 750 MG in DEXTROSE 5%-WATER - 250 ML IVPB SCH ×2 (03:15→17:36)
[2018-01-13] MEDS: HEPARIN NA (PORCINE) 5,000 UNITS/ML 1ML VIAL SQ SCH ×3 (06:22→21:34)
[2018-01-13] MEDS: INSULIN SLIDING SCALE (NOVOLOG) 1 VIAL SQ SCH ×4 (06:31→21:37)
[2018-01-13 07:14] LABS: BASO % 0.3 % (0-2.0); EOS % 0.1 % (0-4.5); HEMOGLOBIN 11.1 GM/dL (11.7-16.9); MCH 30.4 pg (25.7-33.7); MCHC 33.5 g/dl (32.0-35.9); MEAN CELL VOLUME 90.5 fl (80-96); MEAN PLT VOLUME 7.9 fl (7.5-11.1); MONO % 11.5 % (3.8-10.2); NEUT % 72.1 % (42.8-82.8); PLATELET COUNT 690 K/MM3 (134-434); RBC 3.65 M/mm3 (4.00-5.60); RDW 13.4 % (11.9-15.9); WHITE BLOOD COUNT 16.6 K/mm3 (4.0-10.0)
[2018-01-13 07:44] LABS: ALBUMIN 1.5 g/dl (3.4-5.0); ANION GAP 9 (8-16); BILIRUBIN,TOTAL 0.8 mg/dL (0.2-1.0); BLOOD UREA NITROGEN 9 mg/dL (7-18); CALCIUM 7.3 mg/dL (8.5-10.1); CHLORIDE 99 mmol/L (98-107); CO2 26 mmol/L (21-32); CREATININE 0.5 mg/dL (0.7-1.3); GLUCOSE,RANDOM 279 mg/dL (74-106); PHOSPHOROUS 2.7 mg/dL (2.5-4.9); POTASSIUM 4.3 mmol/L (3.5-5.1); SGOT/AST 59 U/L (15-37); SGPT/ALT 49 U/L (12-78); SODIUM 134 mmol/L (136-145)
[2018-01-13 07:45] LABS: ALK PHOS 201 U/L (45-117)
[2018-01-13] MEDS: ALBUTEROL SO4 2.5/IPRATROPIUM 0.5 INH SOL 3 ML VIAL.NEB. NEB SCH ×4 (08:40→20:36)
--- NOTE | 2018-01-13 14:42 | PN ---
Progress Note (short form) - Note Progress Note: No acute events overnight. No hemoptysis recorded. Pending AFB. Intake & Output 01/10/18 01/11/18 01/12/18 01/13/18 23:59 23:59 23:59 23:59 Intake Total 250 1450 1130 Output Total 1350 450 Balance 250 100 680 Weight 115 lb Last Vital Signs Temp Pulse Resp BP Pulse Ox 98.2 F 88 20 126/68 94 L 01/13/18 06:00 01/13/18 06:00 01/13/18 06:00 01/13/18 06:00 01/12/18 21:00 Active Medications Acetaminophen (Tylenol -) 650 mg PO Q6H PRN PRN Reason: fever or pain Last Admin: 01/11/18 23:38 Dose: 650 mg Albuterol/Ipratropium (Duoneb -) 1 amp NEB RQID [facility] Last Admin: 01/13/18 12:46 Dose: 1 amp Heparin Sodium (Porcine) (Heparin -) 5,000 unit SQ TID [facility] Last Admin: 01/13/18 06:22 Dose: 5,000 unit Piperacillin Sod/Tazobactam (Sod 4.5 gm/ Dextrose) 100 mls @ 200 mls/hr IVPB Q8H-IV MICHELLE Last Admin: 01/13/18 09:55 Dose: 200 mls/hr Vancomycin HCl 750 mg/ (Dextrose) 250 mls @ 166.667 mls/hr IVPB Q12H MICHELLE Last Admin: 01/13/18 03:15 Dose: 166.667 mls/hr Insulin Aspart (Novolog Vial Sliding Scale -) 1 vial SQ ACHS MICHELLE PRN Reason: Protocol Last Admin: 01/13/18 11:30 Dose: 6 units Constitutional: Yes: NAD, Cachectic Eyes: Yes: EOM Intact HENT: Yes: Normocephalic Neck: Yes: Trachea Midline Cardiovascular: Yes: Tachycardia, S1, S2 Respiratory: Yes: Diminished, Rhonchi Gastrointestinal: Yes: Normal Bowel Sounds, Abdomen, Obese Edema: No Neurological: Yes: Alert Labs: Laboratory Results - last 24 hr 01/12/18 01/12/18 01/12/18 13:55 13:55 17:36 WBC RBC Hgb Hct MCV MCH MCHC RDW Plt Count MPV Neutrophils % Lymphocytes % Monocytes % Eosinophils % Basophils % Sodium Potassium Chloride Carbon Dioxide Anion Gap BUN Creatinine Creat Clearance w eGFR POC Glucometer 337 Random Glucose Calcium Phosphorus Total Bilirubin AST ALT Alkaline Phosphatase Total Protein Albumin HIV 1&2 Ag/Ab, 4th Gen Non reactive HIV 1&2 Antibody Screen Preliminary positive HIV P24 Antigen Negative 01/12/18 01/13/18 01/13/18 21:21 06:15 06:15 WBC 16.6 H RBC 3.65 L Hgb 11.1 L Hct 33.0 L MCV 90.5 MCH 30.4 MCHC 33.5 RDW 13.4 Plt Count 690 H MPV 7.9 Neutrophils % 72.1 D Lymphocytes % 16.0 D Monocytes % 11.5 H Eosinophils % 0.1 D Basophils % 0.3 Sodium 134 L Potassium 4.3 Chloride 99 Carbon Dioxide 26 Anion Gap 9 BUN 9 Creatinine 0.5 L D Creat Clearance w eGFR > 60 POC Glucometer 227 Random Glucose 279 H D Calcium 7.3 L Phosphorus 2.7 D Total Bilirubin 0.8 D AST 59 H D ALT 49 Alkaline Phosphatase 201 H Total Protein 6.0 L Albumin 1.5 L HIV 1&2 Ag/Ab, 4th Gen HIV 1&2 Antibody Screen HIV P24 Antigen 01/13/18 01/13/18 06:26 11:44 WBC RBC Hgb Hct MCV MCH MCHC RDW Plt Count MPV Neutrophils % Lymphocytes % Monocytes % Eosinophils % Basophils % Sodium Potassium Chloride Carbon Dioxide Anion Gap BUN Creatinine Creat Clearance w eGFR POC Glucometer 281 254 Random Glucose Calcium Phosphorus Total Bilirubin AST ALT Alkaline Phosphatase Total Protein Albumin HIV 1&2 Ag/Ab, 4th Gen HIV 1&2 Antibody Screen HIV P24 Antigen Assessment/Plan CACHEXIA/SPUTUM/FEVER/SOB/PLEURITIC RIGHT POSTERIOR CHEST PAIN/BIBASILAR CONSOLIDATIONS ON CT CHEST DISTANT UNCLEAR 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
[2018-01-13] MEDS: ACETAMINOPHEN 325 MG TABLET (FP) PO PRN (16:53)
--- NOTE | 2018-01-13 17:23 | PN ---
Physical Exam: SUBJECTIVE: Patient seen and examined oob to chair. and daughter present. States feeling stronger, appetite has improved. Cough with whitish sputum. OBJECTIVE: Vital Signs Period Temp Pulse Resp BP Sys/Jc Pulse Ox Last 24 Hr 98.2 F-101.9 F 88-124 20-20 126-136/59-84 94-96 GENERAL: The patient is awake, alert, and fully oriented, in no acute distress. Thin, frail, cachectic. Temporal wasting. LUNGS: Diminished breath sounds on right HEART: Regular rate and rhythm, S1, S2 ABDOMEN: Soft, nontender, nondistended, normoactive bowel sounds, no guarding, no rebound EXTREMITIES: 2+ pulses, warm, well-perfused, no edema. NEUROLOGICAL: Cranial nerves II through XII grossly intact. Normal speech, gait not observed. Laboratory Results - last 24 hr 01/12/18 01/12/18 01/12/18 13:55 17:36 21:21 WBC RBC Hgb Hct MCV MCH MCHC RDW Plt Count MPV Neutrophils % Lymphocytes % Monocytes % Eosinophils % Basophils % Sodium Potassium Chloride Carbon Dioxide Anion Gap BUN Creatinine Creat Clearance w eGFR POC Glucometer 337 227 Random Glucose Calcium Phosphorus Total Bilirubin AST ALT Alkaline Phosphatase Total Protein Albumin HIV 1&2 Ag/Ab, 4th Gen Non reactive 01/13/18 01/13/18 01/13/18 06:15 06:15 06:26 WBC 16.6 H RBC 3.65 L Hgb 11.1 L Hct 33.0 L MCV 90.5 MCH 30.4 MCHC 33.5 RDW 13.4 Plt Count 690 H MPV 7.9 Neutrophils % 72.1 D Lymphocytes % 16.0 D Monocytes % 11.5 H Eosinophils % 0.1 D Basophils % 0.3 Sodium 134 L Potassium 4.3 Chloride 99 Carbon Dioxide 26 Anion Gap 9 BUN 9 Creatinine 0.5 L D Creat Clearance w eGFR > 60 POC Glucometer 281 Random Glucose 279 H D Calcium 7.3 L Phosphorus 2.7 D Total Bilirubin 0.8 D AST 59 H D ALT 49 Alkaline Phosphatase 201 H Total Protein 6.0 L Albumin 1.5 L HIV 1&2 Ag/Ab, 4th Gen 01/13/18 01/13/18 11:44 16:46 WBC RBC Hgb Hct MCV MCH MCHC RDW Plt Count MPV Neutrophils % Lymphocytes % Monocytes % Eosinophils % Basophils % Sodium Potassium Chloride Carbon Dioxide Anion Gap BUN Creatinine Creat Clearance w eGFR POC Glucometer 254 305 Random Glucose Calcium Phosphorus Total Bilirubin AST ALT Alkaline Phosphatase Total Protein Albumin HIV 1&2 Ag/Ab, 4th Gen Active Medications Generic Name Dose Route Start Last Admin Trade Name Freq PRN Reason Stop Dose Admin Acetaminophen 650 mg 01/11/18 23:24 01/13/18 16:53 Tylenol - PO 650 mg Q6H PRN Administration fever or pain Albuterol/Ipratropium 1 amp 01/12/18 16:00 01/13/18 12:46 Duoneb - NEB 1 amp RQID MICHELLE Administration Heparin Sodium (Porcine) 5,000 unit 01/12/18 06:00 01/13/18 15:40 Heparin - SQ 5,000 unit TID MICHELLE Administration Piperacillin Sod/Tazobactam 100 mls @ 200 mls/hr 01/12/18 15:30 01/13/18 09: 55 Sod 4.5 gm/ Dextrose IVPB 200 mls/hr Q8H-IV MICHELLE Administration Vancomycin HCl 750 mg/ 250 mls @ 166.667 mls/hr 01/12/18 15:30 01/13/18 03:15 Dextrose IVPB 166.667 mls/hr Q12H MICHELLE Administration Insulin Aspart 1 vial 01/12/18 13:18 01/13/18 11:30 Novolog Vial Sliding Scale - SQ 6 units ACHS MICHELLE Administration Protocol ASSESSMENT/PLAN 52 year-old male with PMH significant for NIDDM. Admitted for multi-lobar pneumonia. Sepsis due to Strep pneumoniae multilobar PNA --01/11 CT chest: RLL, LLL, ZAKI infiltrates; small right pleural effusions one loculated --WBC elevated, afebrile, hemodynamically stable --continue Zosyn (day #3), Vanc (day #3) --ID following --pulm following r/o HIV --preliminarily positive Hepatitic C --positive antigen r/o tuberculosis --Quant gold positive --01/13 AFB smear negative --two AFBs pending --may have previously been treated for TB Diabetes --HgbA1C 12.5 --Novolog sliding scale --endo consult FEN Fluids: PO intake adequate Electrolytes: replete as indicated Nutrition: diabetic diet, glucerna between meals DVT prophylaxis: subq heparin Physical therapy: strengthening exercises that can be done in isolation room Dispo: continues to require inpatient care. Full code. Visit type - Emergency Visit Emergency Visit: Yes ED Registration Date: 01/11/18 Care time: The patient presented to the Emergency Department on the above date and was hospitalized for further evaluation of their emergent condition. - New Patient This patient is new to me today: Yes Date on this admission: 01/14/18 - Critical Care Critical Care patient: No
[2018-01-13] MEDS ORDERED: INSULIN (NOVOLOG) ASPART 100 UNITS/ML 10ML VIAL ONE (21:02)
[2018-01-14] MEDS: PIPERACILLIN/TAZOB 4.5 GM 4.5 GM in DEXTROSE 5%-WATER - 100 ML IVPB SCH ×3 (02:43→17:30)
[2018-01-14] MEDS: ACETAMINOPHEN 325 MG TABLET (FP) PO PRN (02:47)
[2018-01-14] MEDS: VANCOMYCIN 750 MG in DEXTROSE 5%-WATER - 250 ML IVPB SCH ×2 (03:45→17:29)
[2018-01-14] MEDS: INSULIN SLIDING SCALE (NOVOLOG) 1 VIAL SQ SCH ×4 (06:56→21:28)
[2018-01-14] MEDS: HEPARIN NA (PORCINE) 5,000 UNITS/ML 1ML VIAL SQ SCH ×3 (06:56→21:28)
[2018-01-14 07:30] LABS: BASO % 0.7 % (0-2.0); EOS % 0.3 % (0-4.5); HEMATOCRIT 35.4 % (35.4-49); HEMOGLOBIN 11.7 GM/dL (11.7-16.9); LYMPH % 17.4 % (8-40); MCH 30.1 pg (25.7-33.7); MCHC 33.1 g/dl (32.0-35.9); MEAN CELL VOLUME 90.8 fl (80-96); MEAN PLT VOLUME 7.7 fl (7.5-11.1); MONO % 11.4 % (3.8-10.2); NEUT % 70.2 % (42.8-82.8); PLATELET COUNT 741 K/MM3 (134-434); RDW 13.6 % (11.9-15.9); WHITE BLOOD COUNT 12.6 K/mm3 (4.0-10.0)
[2018-01-14 08:02] LABS: ANION GAP 7 (8-16); BLOOD UREA NITROGEN 7 mg/dL (7-18); CALCIUM 7.8 mg/dL (8.5-10.1); CHLORIDE 99 mmol/L (98-107); CO2 28 mmol/L (21-32); GLUCOSE,RANDOM 290 mg/dL (74-106); POTASSIUM 4.7 mmol/L (3.5-5.1); SODIUM 134 mmol/L (136-145)
[2018-01-14 08:05] LABS: ALBUMIN 1.6 g/dl (3.4-5.0); ALK PHOS 293 U/L (45-117); CREATININE 0.5 mg/dL (0.7-1.3); SGOT/AST 79 U/L (15-37); SGPT/ALT 69 U/L (12-78); TOT PROT 6.4 g/dl (6.4-8.2)
[2018-01-14] MEDS: ALBUTEROL SO4 2.5/IPRATROPIUM 0.5 INH SOL 3 ML VIAL.NEB. NEB SCH ×4 (08:52→20:55)
--- NOTE | 2018-01-14 11:48 | PN ---
Physical Exam: SUBJECTIVE: Patient seen and examined at bedside. Voices no complaints. OBJECTIVE: Vital Signs Period Temp Pulse Resp BP Sys/Jc Pulse Ox Last 24 Hr 98.4 F-101.9 F 91-124 20-20 131-136/55-73 94 GENERAL: The patient is awake, alert, and fully oriented, in no acute distress. Thin, frail, cachectic. Temporal wasting. LUNGS: Diminished breath sounds on right HEART: Regular rate and rhythm, S1, S2 ABDOMEN: Soft, nontender, nondistended, normoactive bowel sounds, no guarding, no rebound EXTREMITIES: 2+ pulses, warm, well-perfused, no edema. NEUROLOGICAL: Cranial nerves II through XII grossly intact. Normal speech, gait not observed. Laboratory Results - last 24 hr 01/12/18 01/13/18 01/13/18 13:55 06:15 11:44 WBC RBC Hgb Hct MCV MCH MCHC RDW Plt Count MPV Neutrophils % Lymphocytes % Monocytes % Eosinophils % Basophils % Sodium Potassium Chloride Carbon Dioxide Anion Gap BUN Creatinine Creat Clearance w eGFR POC Glucometer 254 Random Glucose Calcium Magnesium Total Bilirubin AST ALT Alkaline Phosphatase Total Protein Albumin Hepatitis A IgM Ab Negative Hep Bs Antigen Negative Hep B Core IgM Ab Negative Hepatitis C Antibody >11.0 H TB Test (QFT) Positive H 01/13/18 01/13/18 01/14/18 16:46 21:36 06:11 WBC RBC Hgb Hct MCV MCH MCHC RDW Plt Count MPV Neutrophils % Lymphocytes % Monocytes % Eosinophils % Basophils % Sodium Potassium Chloride Carbon Dioxide Anion Gap BUN Creatinine Creat Clearance w eGFR POC Glucometer 305 342 280 Random Glucose Calcium Magnesium Total Bilirubin AST ALT Alkaline Phosphatase Total Protein Albumin Hepatitis A IgM Ab Hep Bs Antigen Hep B Core IgM Ab Hepatitis C Antibody TB Test (QFT) 01/14/18 01/14/18 06:37 06:37 WBC 12.6 H RBC 3.90 L Hgb 11.7 Hct 35.4 MCV 90.8 MCH 30.1 MCHC 33.1 RDW 13.6 Plt Count 741 H MPV 7.7 Neutrophils % 70.2 Lymphocytes % 17.4 Monocytes % 11.4 H Eosinophils % 0.3 D Basophils % 0.7 Sodium 134 L Potassium 4.7 Chloride 99 Carbon Dioxide 28 Anion Gap 7 L BUN 7 D Creatinine 0.5 L Creat Clearance w eGFR > 60 POC Glucometer Random Glucose 290 H Calcium 7.8 L Magnesium 2.0 Total Bilirubin 1.0 D AST 79 H D ALT 69 D Alkaline Phosphatase 293 H D Total Protein 6.4 Albumin 1.6 L Hepatitis A IgM Ab Hep Bs Antigen Hep B Core IgM Ab Hepatitis C Antibody TB Test (QFT) Active Medications Generic Name Dose Route Start Last Admin Trade Name Freq PRN Reason Stop Dose Admin Acetaminophen 650 mg 01/11/18 23:24 01/14/18 02:47 Tylenol - PO 650 mg Q6H PRN Administration fever or pain Albuterol/Ipratropium 1 amp 01/12/18 16:00 01/14/18 08:52 Duoneb - NEB 1 amp RQID MICHELLE Administration Heparin Sodium (Porcine) 5,000 unit 01/12/18 06:00 01/14/18 06:56 Heparin - SQ 5,000 unit TID MICHELLE Administration Piperacillin Sod/Tazobactam 100 mls @ 200 mls/hr 01/12/18 15:30 01/14/18 09: 04 Sod 4.5 gm/ Dextrose IVPB 200 mls/hr Q8H-IV MICHELLE Administration Vancomycin HCl 750 mg/ 250 mls @ 166.667 mls/hr 01/12/18 15:30 01/14/18 03:45 Dextrose IVPB 166.667 mls/hr Q12H MICHELLE Administration Insulin Aspart 1 vial 01/12/18 13:18 01/14/18 06:56 Novolog Vial Sliding Scale - SQ 6 units ACHS MICHELLE Administration Protocol ASSESSMENT/PLAN 52 year-old male with PMH significant for NIDDM. Admitted for multi-lobar pneumonia. Sepsis due to Strep pneumoniae multilobar PNA --01/11 CT chest: RLL, LLL, ZAKI infiltrates; small right pleural effusions one loculated --Fever spike 101.9 --continue Zosyn (day #4), Vanc (day #4) --ID following --pulm following r/o HIV --preliminarily positive Hepatitic C --positive antibody r/o tuberculosis --Quant gold positive --01/13 AFB smear negative; two AFBs pending --may have previously been treated for TB Diabetes --HgbA1C 12.5 --Novolog sliding scale --endo consult FEN Fluids: PO intake adequate Electrolytes: replete as indicated Nutrition: diabetic diet, glucerna between meals DVT prophylaxis: subq heparin Physical therapy: strengthening exercises that can be done in isolation room Dispo: continues to require inpatient care. Full code. Visit type - Emergency Visit Emergency Visit: Yes ED Registration Date: 01/11/18 Care time: The patient presented to the Emergency Department on the above date and was hospitalized for further evaluation of their emergent condition. - New Patient This patient is new to me today: No - Critical Care Critical Care patient: No
--- NOTE | 2018-01-14 13:22 | PN ---
Progress Note (short form) - Note Progress Note: No acute events overnight. No hemoptysis recorded. AFB x 1 noted as well as yeast . Intake & Output 01/11/18 01/12/18 01/13/18 01/14/18 23:59 23:59 23:59 23:59 Intake Total 250 1450 2159 350 Output Total 1350 1400 Balance 250 100 759 350 Weight 115 lb Last Vital Signs Temp Pulse Resp BP Pulse Ox 100 F H 91 H 20 136/55 94 L 01/14/18 07:37 01/14/18 07:37 01/14/18 07:37 01/14/18 07:37 01/13/18 21:00 Active Medications Acetaminophen (Tylenol -) 650 mg PO Q6H PRN PRN Reason: fever or pain Last Admin: 01/14/18 02:47 Dose: 650 mg Albuterol/Ipratropium (Duoneb -) 1 amp NEB RQID [facility] Last Admin: 01/14/18 12:15 Dose: 1 amp Heparin Sodium (Porcine) (Heparin -) 5,000 unit SQ TID [facility] Last Admin: 01/14/18 06:56 Dose: 5,000 unit Piperacillin Sod/Tazobactam (Sod 4.5 gm/ Dextrose) 100 mls @ 200 mls/hr IVPB Q8H-IV [facility] Last Admin: 01/14/18 09:04 Dose: 200 mls/hr Vancomycin HCl 750 mg/ (Dextrose) 250 mls @ 166.667 mls/hr IVPB Q12H [facility] Last Admin: 01/14/18 03:45 Dose: 166.667 mls/hr Insulin Aspart (Novolog Vial Sliding Scale -) 1 vial SQ ACHS MICHELLE PRN Reason: Protocol Last Admin: 01/14/18 06:56 Dose: 6 units Constitutional: Yes: NAD, Cachectic Eyes: Yes: EOM Intact HENT: Yes: Normocephalic Neck: Yes: Trachea Midline Cardiovascular: Yes: S1, S2 Respiratory: Yes: Diminished, Rhonchi Gastrointestinal: Yes: Normal Bowel Sounds, Abdomen, Obese Edema: No Neurological: Yes: Alert Labs: Laboratory Results - last 24 hr 01/12/18 01/13/18 01/13/18 13:55 06:15 16:46 WBC RBC Hgb Hct MCV MCH MCHC RDW Plt Count MPV Neutrophils % Lymphocytes % Monocytes % Eosinophils % Basophils % Sodium Potassium Chloride Carbon Dioxide Anion Gap BUN Creatinine Creat Clearance w eGFR POC Glucometer 305 Random Glucose Calcium Magnesium Total Bilirubin AST ALT Alkaline Phosphatase Total Protein Albumin Hepatitis A IgM Ab Negative Hep Bs Antigen Negative Hep B Core IgM Ab Negative Hepatitis C Antibody >11.0 H TB Test (QFT) Positive H 01/13/18 01/14/18 01/14/18 21:36 06:11 06:37 WBC 12.6 H RBC 3.90 L Hgb 11.7 Hct 35.4 MCV 90.8 MCH 30.1 MCHC 33.1 RDW 13.6 Plt Count 741 H MPV 7.7 Neutrophils % 70.2 Lymphocytes % 17.4 Monocytes % 11.4 H Eosinophils % 0.3 D Basophils % 0.7 Sodium Potassium Chloride Carbon Dioxide Anion Gap BUN Creatinine Creat Clearance w eGFR POC Glucometer 342 280 Random Glucose Calcium Magnesium Total Bilirubin AST ALT Alkaline Phosphatase Total Protein Albumin Hepatitis A IgM Ab Hep Bs Antigen Hep B Core IgM Ab Hepatitis C Antibody TB Test (QFT) 01/14/18 01/14/18 06:37 11:37 WBC RBC Hgb Hct MCV MCH MCHC RDW Plt Count MPV Neutrophils % Lymphocytes % Monocytes % Eosinophils % Basophils % Sodium 134 L Potassium 4.7 Chloride 99 Carbon Dioxide 28 Anion Gap 7 L BUN 7 D Creatinine 0.5 L Creat Clearance w eGFR > 60 POC Glucometer 287 Random Glucose 290 H Calcium 7.8 L Magnesium 2.0 Total Bilirubin 1.0 D AST 79 H D ALT 69 D Alkaline Phosphatase 293 H D Total Protein 6.4 Albumin 1.6 L Hepatitis A IgM Ab Hep Bs Antigen Hep B Core IgM Ab Hepatitis C Antibody TB Test (QFT) Assessment/Plan CACHEXIA/SPUTUM/FEVER/SOB/PLEURITIC RIGHT POSTERIOR CHEST PAIN/BIBASILAR CONSOLIDATIONS ON CT CHEST DISTANT UNCLEAR 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
[2018-01-14] MEDS ORDERED: INSULIN (NOVOLOG) ASPART 100 UNITS/ML 10ML VIAL ONE (16:58)
[2018-01-15] MEDS: PIPERACILLIN/TAZOB 4.5 GM 4.5 GM in DEXTROSE 5%-WATER - 100 ML IVPB SCH ×2 (02:00→09:15)
[2018-01-15] MEDS: VANCOMYCIN 750 MG in DEXTROSE 5%-WATER - 250 ML IVPB SCH (03:33)
[2018-01-15] MEDS: HEPARIN NA (PORCINE) 5,000 UNITS/ML 1ML VIAL SQ SCH ×3 (06:27→22:02)
[2018-01-15] MEDS: INSULIN SLIDING SCALE (NOVOLOG) 1 VIAL SQ SCH ×4 (06:28→22:02)
[2018-01-15 07:10] LABS: EOS % 0.4 % (0-4.5); HEMOGLOBIN 10.8 GM/dL (11.7-16.9); LYMPH % 23.3 % (8-40); MCH 30.3 pg (25.7-33.7); MCHC 33.7 g/dl (32.0-35.9); MEAN CELL VOLUME 89.9 fl (80-96); MEAN PLT VOLUME 7.8 fl (7.5-11.1); MONO % 13.7 % (3.8-10.2); NEUT % 61.6 % (42.8-82.8); PLATELET COUNT 635 K/MM3 (134-434); RBC 3.56 M/mm3 (4.00-5.60); RDW 13.4 % (11.9-15.9); WHITE BLOOD COUNT 11.7 K/mm3 (4.0-10.0)
[2018-01-15 07:29] LABS: ALBUMIN 1.5 g/dl (3.4-5.0); ALK PHOS 284 U/L (45-117); ANION GAP 8 (8-16); BILIRUBIN,TOTAL 0.7 mg/dL (0.2-1.0); BLOOD UREA NITROGEN 6 mg/dL (7-18); CALCIUM 7.3 mg/dL (8.5-10.1); CHLORIDE 100 mmol/L (98-107); CO2 28 mmol/L (21-32); CREATININE 0.4 mg/dL (0.7-1.3); GLUCOSE,RANDOM 175 mg/dL (74-106); MAGNESIUM 1.8 mg/dL (1.8-2.4); POTASSIUM 4.1 mmol/L (3.5-5.1); SGOT/AST 49 U/L (15-37); SGPT/ALT 52 U/L (12-78); SODIUM 136 mmol/L (136-145); TOT PROT 6.2 g/dl (6.4-8.2)
[2018-01-15] MEDS: ALBUTEROL SO4 2.5/IPRATROPIUM 0.5 INH SOL 3 ML VIAL.NEB. NEB SCH ×4 (07:35→19:45)
--- NOTE | 2018-01-15 08:18 | PN ---
Physical Exam: SUBJECTIVE: Patient seen and examined. and daughter at bedside. Feels warm and sweaty. OBJECTIVE: Vital Signs Temperature 101.4 F H 01/15/18 18:00 Pulse Rate 111 H 01/15/18 18:00 Respiratory Rate 20 01/15/18 20:59 Blood Pressure 139/86 01/15/18 18:00 O2 Sat by Pulse Oximetry (%) 96 01/15/18 20:59 GENERAL: The patient is awake, alert, and fully oriented, in no acute distress. Thin, frail, cachectic. Temporal wasting. Skin clammy, warm to touch. Weak, ill- appearing LUNGS: Diminished breath sounds on right persist HEART: Regular rate and rhythm, S1, S2 ABDOMEN: Soft, nontender, nondistended, normoactive bowel sounds, no guarding, no rebound EXTREMITIES: 2+ pulses, warm, well-perfused, no edema. NEUROLOGICAL: Cranial nerves II through XII grossly intact. Normal speech, gait not observed. Laboratory Results - last 24 hr 01/12/18 01/14/18 01/14/18 13:55 06:37 11:37 WBC 12.6 H RBC 3.90 L Hgb 11.7 Hct 35.4 MCV 90.8 MCH 30.1 MCHC 33.1 RDW 13.6 Plt Count 741 H MPV 7.7 Neutrophils % 70.2 Lymphocytes % 17.4 Monocytes % 11.4 H Eosinophils % 0.3 D Basophils % 0.7 Sodium Potassium Chloride Carbon Dioxide Anion Gap BUN Creatinine Creat Clearance w eGFR POC Glucometer 287 Random Glucose Calcium Magnesium Total Bilirubin AST ALT Alkaline Phosphatase Total Protein Albumin TB Test (QFT) Positive H 01/14/18 01/14/18 01/15/18 16:54 21:27 05:20 WBC RBC Hgb Hct MCV MCH MCHC RDW Plt Count MPV Neutrophils % Lymphocytes % Monocytes % Eosinophils % Basophils % Sodium Potassium Chloride Carbon Dioxide Anion Gap BUN Creatinine Creat Clearance w eGFR POC Glucometer 269 281 193 Random Glucose Calcium Magnesium Total Bilirubin AST ALT Alkaline Phosphatase Total Protein Albumin TB Test (QFT) 01/15/18 01/15/18 06:35 06:35 WBC 11.7 H RBC 3.56 L Hgb 10.8 L Hct 32.0 L MCV 89.9 MCH 30.3 MCHC 33.7 RDW 13.4 Plt Count 635 H MPV 7.8 Neutrophils % 61.6 Lymphocytes % 23.3 D Monocytes % 13.7 H Eosinophils % 0.4 Basophils % 1.0 Sodium 136 Potassium 4.1 Chloride 100 Carbon Dioxide 28 Anion Gap 8 BUN 6 L Creatinine 0.4 L Creat Clearance w eGFR > 60 POC Glucometer Random Glucose 175 H D Calcium 7.3 L Magnesium 1.8 Total Bilirubin 0.7 D AST 49 H D ALT 52 D Alkaline Phosphatase 284 H Total Protein 6.2 L Albumin 1.5 L TB Test (QFT) Current Medications Generic Name Dose Route Start Last Admin Trade Name Freq PRN Reason Stop Dose Admin Acetaminophen 650 mg 01/11/18 23:24 01/15/18 17:07 Tylenol - PO 650 mg Q6H PRN Administration fever or pain Albuterol/Ipratropium 1 amp 01/12/18 16:00 01/15/18 19:45 Duoneb - NEB 1 amp RQID MICHELLE Administration Glipizide 2.5 mg 01/15/18 16:30 01/15/18 16:04 Glucotrol - PO 2.5 mg BID@0700,1630 MICHELLE Administration Heparin Sodium (Porcine) 5,000 unit 01/12/18 06:00 01/15/18 22:02 Heparin - SQ 5,000 unit TID MICHELLE Administration Sodium Chloride 1,000 mls @ 50 mls/hr 01/15/18 22:19 Normal Saline - IV ASDIR MICHELLE Insulin Aspart 1 vial 01/12/18 13:18 01/15/18 22:02 Novolog Vial Sliding Scale - SQ 6 units ACHS MICHELLE Administration Protocol Microbiology 01/11/18 17:30 Blood - Peripheral Venous Blood Culture - Preliminary NO GROWTH OBTAINED AFTER 96 HOURS, INCUBATION TO CONTINUE FOR 1 DAYS. 01/11/18 17:20 Blood - Peripheral Venous Blood Culture - Preliminary NO GROWTH OBTAINED AFTER 96 HOURS, INCUBATION TO CONTINUE FOR 1 DAYS. 01/13/18 13:37 Sputum - Expectorated Gram Stain - Final 01/13/18 13:37 Sputum - Expectorated Sputum Culture - Final Yeast Like Organism 01/11/18 17:44 Sputum - Expectorated Gram Stain - Final 01/11/18 17:44 Sputum - Expectorated Sputum Culture - Final NORMAL RESPIRATORY ANNA 01/13/18 11:00 Sputum - Expectorated Direct Acid Fast Bacilli Smear - Final 01/12/18 05:03 Urine - Urine Clean Catch Urine Culture - Final NO GROWTH OBTAINED 01/12/18 18:00 Urine For Antigen Detection Legionella Antigen - Final 01/12/18 18:00 Urine For Antigen Detection Streptococcus pneumoniae Antigen (M - Final 01/12/18 05:03 Urine For Antigen Detection Legionella Antigen - Final 01/12/18 05:03 Urine For Antigen Detection Streptococcus pneumoniae Antigen (M - Final 01/11/18 14:45 Nasopharyngeal Swab Influenza Types A,B Antigen (VALARIE) - Preliminary 01/11/18 14:45 Nasopharyngeal Swab - Preliminary ASSESSMENT/PLAN 52 year-old male with PMH significant for NIDDM. Admitted for multi-lobar pneumonia. Sepsis due to Strep pneumoniae multilobar PNA --01/11 CT chest: RLL, LLL, ZAKI infiltrates; small right pleural effusions one loculated --continues to spike fevers 101.4 --d/c Zosyn (x 4 days) d/c Vanc (x 4 days); start ceftriaxone --ID following --pulm following r/o HIV --preliminarily positive, second test negative Hepatitic C --positive antibody r/o tuberculosis --Quant gold positive --01/13 AFB smear negative; two AFBs pending --may have previously been treated for TB Diabetes --HgbA1C 12.5 --seen and evaluated by endo, start glipizide --Novolog sliding scale FEN Fluids: PO intake adequate Electrolytes: replete as indicated Nutrition: diabetic diet, glucerna between meals DVT prophylaxis: subq heparin Physical therapy: strengthening exercises that can be done in isolation room Dispo: continues to require inpatient care. Full code. Visit type - Emergency Visit Emergency Visit: Yes ED Registration Date: 01/11/18 Care time: The patient presented to the Emergency Department on the above date and was hospitalized for further evaluation of their emergent condition. - New Patient This patient is new to me today: No - Critical Care Critical Care patient: No
--- NOTE | 2018-01-15 11:11 | PN ---
Progress Note, Physician History of Present Illness: PULMONARY ALERT,NO DISTRESS,-SOB,LESS COUGH - Current Medication List Current Medications: Active Medications Acetaminophen (Tylenol -) 650 mg PO Q6H PRN PRN Reason: fever or pain Last Admin: 01/14/18 02:47 Dose: 650 mg Albuterol/Ipratropium (Duoneb -) 1 amp NEB RQID [facility] Last Admin: 01/15/18 07:35 Dose: 1 amp Heparin Sodium (Porcine) (Heparin -) 5,000 unit SQ TID [facility] Last Admin: 01/15/18 06:27 Dose: 5,000 unit Piperacillin Sod/Tazobactam (Sod 4.5 gm/ Dextrose) 100 mls @ 200 mls/hr IVPB Q8H-IV [facility] Last Admin: 01/15/18 09:15 Dose: 200 mls/hr Vancomycin HCl 750 mg/ (Dextrose) 250 mls @ 166.667 mls/hr IVPB Q12H [facility] Last Admin: 01/15/18 03:33 Dose: 166.667 mls/hr Insulin Aspart (Novolog Vial Sliding Scale -) 1 vial SQ ACHS MICHELLE PRN Reason: Protocol Last Admin: 01/15/18 06:28 Dose: 2 units - Objective Vital Signs: Vital Signs Temperature 99.1 F 01/15/18 09:00 Pulse Rate 112 H 01/15/18 09:00 Respiratory Rate 20 01/15/18 09:00 Blood Pressure 136/70 01/15/18 09:00 O2 Sat by Pulse Oximetry (%) 96 01/15/18 09:00 Constitutional: Yes: Well Nourished, Calm Eyes: Yes: WNL HENT: Yes: WNL Neck: Yes: WNL Cardiovascular: Yes: Regular Rate and Rhythm, S1, S2 Respiratory: Yes: Diminished, Rales (BIBASILAR CRACKLES) Gastrointestinal: Yes: Normal Bowel Sounds, Soft Extremities: Yes: WNL Edema: No Labs: CBC, BMP 01/15/18 06:35 01/15/18 06:35 INR, PTT INR 1.18 (0.82-1.09) H 01/12/18 08:30 Problem List - Problems (1) Right-sided chest pain Code(s): R07.9 - CHEST PAIN, UNSPECIFIED (2) Diabetes mellitus Code(s): E11.9 - TYPE 2 DIABETES MELLITUS WITHOUT COMPLICATIONS Qualifiers: Diabetes mellitus type: other specified (including JAIME) Diabetes mellitus complication status: with unspecified complications 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 TB DISEASE (?+PPD) WITH 9 PILLS ONCE A WEEK FOR 9 MONTHS RECENT DUAL ANTIBIOTIC TREATMENT OUTPATIENT FOR PNEUMONIA WITHOUT IMPROVEMENT (LAST WEEK) ISOLATION UNTIL FURTHER SWABS AND SPUTUMS ARE RESULTED NEED FURTHER DETAILS FROM [facility]ARD OF [facility] O2 NEEDED ABX PER ID DR [id number]
--- NOTE | 2018-01-15 12:50 | CONSULT ---
Consult Consult Specialty:: Endocrinology Referred by:: [facility] Reason for Consultation:: Hyperglycemia - History of Present Illness Chief Complaint: Cough History of Present Illness: This is a 52 yo M with h/o DM on diet for 4 years, who presented with c/o Cough , SOB, chest pain. Cough is productive of whitish sputum, non bloody with associated R pleuritic chest pain. The pt has noticed night sweats and chills, with no objective fevers. 20 Lb weight loss over the past 3 weeks due to loss of appetite. Pt was recently treated here 12/31/17 for RLL PNA after presenting with fever and cough as out px with augmentin /azithro. Since the last presentation for PNA, his SOB is improved, but he now has pleuritic chest pain. New CXR shows worsening pneumonia. PT was noted to have tested negative for TB one month ago. Pt referred for management of hyperglycemia. Pt denies any family h/o DM. Denies any polyuria, polydipsia or nocturia. No visual symptoms. - History Source History Provided By: Patient, Medical Record - Past Medical History FOOT ORTHOPEDIST: No: Alzheimer's Cardio/Vascular: No: AFIB Pulmonary: Yes: Pneumonia. No: COPD, O2 Dependent, Previously Intubated Gastrointestinal: No: Ascites Hepatobiliary: No: Cirrhosis Renal/: No: Renal Failure Psych: No: Addictions Endocrine: Yes: Diabetes Mellitus - Past Surgical History Past Surgical History: Yes: None - Alcohol/Substance Use Hx Alcohol Use: No History of Substance Use: reports: None - Smoking History Smoking history: Former smoker Have you smoked in the past 12 months: No If you are a former smoker, when did you quit?: 5yrs - Social History Usual Living Arrangement: With Spouse ADL: Independent Occupation: [employer] Insurance History of Recent Travel: No Home Medications - Allergies Allergies/Adverse Reactions: Allergies Allergy/AdvReac Type Severity Reaction Status Date / Time No Known Allergies Allergy Verified 01/11/18 14:37 - Home Medications Home Medications: Ambulatory Orders No Home Medications 0 dose .ROUTE UTDICT 06/11/14 Amoxicillin/Potassium Clav [Augmentin 875-125 Tablet] 1 each PO BID #8 tablet Azithromycin 250 mg PO DAILY #4 tablet 12/31/17 Metformin HCl 500 mg PO BID #30 tablet 12/31/17 metFORMIN HCL [Glucophage -] 500 mg PO DAILY #30 tablet 12/31/17 Family Disease History - Family Disease History Other Family History: No family h/o DM Review of Systems - Review of Systems Constitutional: reports: Malaise Eyes: reports: No Symptoms HENT: reports: No Symptoms Neck: reports: No Symptoms Cardiovascular: reports: Shortness of Breath Respiratory: reports: Cough, SOB Gastrointestinal: reports: No Symptoms Genitourinary: reports: No Symptoms Breasts: reports: No Symptoms Reported Musculoskeletal: reports: No Symptoms Neurological: reports: No Symptoms Endocrine: reports: No Symptoms Physical Exam Vital Signs: Vital Signs Temperature 99.1 F 01/15/18 09:00 Pulse Rate 112 H 01/15/18 09:00 Respiratory Rate 20 01/15/18 09:00 Blood Pressure 136/70 01/15/18 09:00 O2 Sat by Pulse Oximetry (%) 96 01/15/18 09:00 Constitutional: Yes: No Distress, Calm Eyes: Yes: Conjunctiva Clear, EOM Intact HENT: Yes: Atraumatic, Normocephalic Neck: Yes: Supple, Trachea Midline Cardiovascular: Yes: Regular Rate and Rhythm Respiratory: Yes: Regular, CTA Bilaterally Gastrointestinal: Yes: Normal Bowel Sounds, Soft Extremities: Yes: WNL Edema: No Neurological: Yes: Alert, Oriented Labs: CBC, BMP 01/15/18 06:35 01/15/18 06:35 Imaging - Results Chest X-ray: Report Reviewed Problem List - Problems (1) Diabetes mellitus Code(s): E11.9 - TYPE 2 DIABETES MELLITUS WITHOUT COMPLICATIONS Qualifiers: Diabetes mellitus type: other specified (including JAIME) Diabetes mellitus complication status: with unspecified complications Diabetes mellitus long-term insulin use: unspecified intermediate project manager insulin use status Qualified Code(s): E13.8 - Other specified diabetes mellitus with unspecified complications (2) Hyperglycemia Code(s): R73.9 - HYPERGLYCEMIA, UNSPECIFIED (3) Pneumonia Code(s): J18.9 - PNEUMONIA, UNSPECIFIED ORGANISM Qualifiers: Pneumonia type: due to unspecified organism Laterality: right Lung location: lower lobe of lung Qualified Code(s): J18.1 - Lobar pneumonia, unspecified organism (4) Right-sided chest pain Code(s): R07.9 - CHEST PAIN, UNSPECIFIED Assessment/Plan AP: Pneumonia HEP C DM uncontrolled: A1c 12.5 No Metformin for now because of Pneumonia ?sepsis Start Glipizide 2.5mg BID premeals
--- NOTE | 2018-01-15 13:33 | PN ---
Progress Note (short form) - Note Progress Note: feels better less chest discomfort pneumococcal antigen is positive! no recent vaccinations Vital Signs Period Temp Pulse Resp BP Sys/Jc Pulse Ox Last 24 Hr 98.4 F-99.6 F 86-112 20-20 117-143/62-79 95-96 cor-rrr lungs decreasd bs right base abd soft,nt ext no edema CBC, BMP 01/15/18 06:35 01/15/18 06:35 hep c positive quantiferon positive prelim hiv positive- second test negative- awaiting RNA test (spoke to chemitry) Microbiology 01/13/18 13:37 Sputum - Expectorated Gram Stain - Final 01/13/18 13:37 Sputum - Expectorated Sputum Culture - Final Yeast Like Organism 01/11/18 17:30 Blood - Peripheral Venous Blood Culture - Preliminary NO GROWTH OBTAINED AFTER 72 HOURS, INCUBATION TO CONTINUE FOR 2 DAYS. 01/11/18 17:20 Blood - Peripheral Venous Blood Culture - Preliminary NO GROWTH OBTAINED AFTER 72 HOURS, INCUBATION TO CONTINUE FOR 2 DAYS. 01/11/18 17:44 Sputum - Expectorated Gram Stain - Final 01/11/18 17:44 Sputum - Expectorated Sputum Culture - Final NORMAL RESPIRATORY ANNA 01/13/18 11:00 Sputum - Expectorated Direct Acid Fast Bacilli Smear - Final 01/12/18 05:03 Urine - Urine Clean Catch Urine Culture - Final NO GROWTH OBTAINED 01/12/18 18:00 Urine For Antigen Detection Legionella Antigen - Final 01/12/18 18:00 Urine For Antigen Detection Streptococcus pneumoniae Antigen (M - Final 01/12/18 05:03 Urine For Antigen Detection Legionella Antigen - Final 01/12/18 05:03 Urine For Antigen Detection Streptococcus pneumoniae Antigen (M - Final 01/11/18 14:45 Nasopharyngeal Swab Influenza Types A,B Antigen (VALARIE) - Preliminary 01/11/18 14:45 Nasopharyngeal Swab - Preliminary a/p suspect PNEUMOCOCCAL pneumonia- day #vanco/zosyn swich to rocephin repat cxray-?effusion f/neri HIV RNA f/u sputum afb (respiratory to induce) Problem List - Problems (1) Pneumonia Code(s): J18.9 - PNEUMONIA, UNSPECIFIED ORGANISM Qualifiers: Pneumonia type: due to unspecified organism Laterality: right Lung location: lower lobe of lung Qualified Code(s): J18.1 - Lobar pneumonia, unspecified organism (2) Diabetes mellitus Code(s): E11.9 - TYPE 2 DIABETES MELLITUS WITHOUT COMPLICATIONS Qualifiers: Diabetes mellitus type: other specified (including JAIME) Diabetes mellitus complication status: with unspecified complications Diabetes mellitus terminal system operator insulin use: unspecified terminal system operator insulin use status Qualified Code(s): E13.8 - Other specified diabetes mellitus with unspecified complications
[2018-01-15] MEDS: CEFTRIAXONE 1 GM/50 ML PREMIX IVPB SCH (13:54)
[2018-01-15] MEDS: glipiZIDE 5 MG TABLET (FP) PO SCH (16:04)
[2018-01-15] MEDS: ACETAMINOPHEN 325 MG TABLET (FP) PO PRN (17:07)
[2018-01-15] MEDS ORDERED: SODIUM CHLORIDE 1,000 ML IV SCH ×2 (22:15→22:19)
[2018-01-16] MEDS: ACETAMINOPHEN 325 MG TABLET (FP) PO PRN ×3 (02:04→20:45)
[2018-01-16] MEDS: glipiZIDE 5 MG TABLET (FP) PO SCH ×2 (06:28→17:00)
[2018-01-16] MEDS: HEPARIN NA (PORCINE) 5,000 UNITS/ML 1ML VIAL SQ SCH (06:28)
[2018-01-16] MEDS: INSULIN SLIDING SCALE (NOVOLOG) 1 VIAL SQ SCH ×4 (06:28→22:25)
[2018-01-16] MEDS: ALBUTEROL SO4 2.5/IPRATROPIUM 0.5 INH SOL 3 ML VIAL.NEB. NEB SCH ×4 (08:44→20:31)
[2018-01-16] MEDS: CEFTRIAXONE 1 GM/50 ML PREMIX IVPB SCH (10:07)
--- NOTE | 2018-01-16 11:00 | PN ---
Progress Note, Physician History of Present Illness: PULMONARY ALERT,-C/O SOB,-COUGH,MIN CHEST TIGHTNESS. FEBRILE T 100.2 - Current Medication List Current Medications: Active Medications Acetaminophen (Tylenol -) 650 mg PO Q6H PRN PRN Reason: fever or pain Last Admin: 01/16/18 10:16 Dose: 650 mg Albuterol/Ipratropium (Duoneb -) 1 amp NEB RQID [facility] Last Admin: 01/16/18 08:44 Dose: 1 amp Glipizide (Glucotrol -) 2.5 mg PO BID@0700,1630 [facility] Last Admin: 01/16/18 06:28 Dose: 2.5 mg Heparin Sodium (Porcine) (Heparin -) 5,000 unit SQ TID [facility] Last Admin: 01/16/18 06:28 Dose: 5,000 unit Sodium Chloride (Normal Saline -) 1,000 mls @ 50 mls/hr IV ASDIR [facility] Last Admin: 01/15/18 22:37 Dose: 50 mls/hr Insulin Aspart (Novolog Vial Sliding Scale -) 1 vial SQ ACHS [facility] PRN Reason: Protocol Last Admin: 01/16/18 06:28 Dose: 2 units - Objective Vital Signs: Vital Signs Temperature 100.2 F H 01/16/18 10:00 Pulse Rate 104 H 01/16/18 10:00 Respiratory Rate 20 01/16/18 10:00 Blood Pressure 131/67 01/16/18 10:00 O2 Sat by Pulse Oximetry (%) 96 01/16/18 09:00 Constitutional: Yes: Calm, Thin Eyes: Yes: WNL HENT: Yes: WNL Neck: Yes: WNL Cardiovascular: Yes: Regular Rate and Rhythm, S1, S2 Respiratory: Yes: Diminished Gastrointestinal: Yes: Normal Bowel Sounds, Soft Extremities: Yes: WNL Edema: No Labs: CBC, BMP - ....Imaging Chest X-ray: Report Reviewed, Image Reviewed (INCREASED R LOWER LOBE INFILTRATE ,EFFUSION) Problem List - Problems (1) Right-sided chest pain Code(s): R07.9 - CHEST PAIN, UNSPECIFIED (2) Diabetes mellitus Code(s): E11.9 - TYPE 2 DIABETES MELLITUS WITHOUT COMPLICATIONS Qualifiers: Diabetes mellitus type: other specified (including JAIME) Diabetes mellitus complication status: with unspecified complications Diabetes mellitus halfway insulin use: unspecified terminal superintendent insulin use status Qualified Code(s): E13.8 - Other specified diabetes mellitus with unspecified complications (3) Pneumonia Code(s): J18.9 - PNEUMONIA, UNSPECIFIED ORGANISM Qualifiers: Pneumonia type: due to unspecified organism Laterality: right Lung location: lower lobe of lung Qualified Code(s): J18.1 - Lobar pneumonia, unspecified organism Assessment/Plan Assessment/Plan BIBASILAR CONSOLIDATIONS ON CT CHEST ? TB DISEASE (?+PPD) WITH 9 PILLS ONCE A WEEK FOR 9 MONTHS RECENT DUAL ANTIBIOTIC TREATMENT OUTPATIENT FOR PNEUMONIA WITHOUT IMPROVEMENT (LAST WEEK) R PLEURAL EFFUSION ISOLATION NEED FURTHER DETAILS FROM BOARD OF [facility] O2 NEEDED ABX PER ID DIAGNOSTIC THORACENTESIS DR LUDWIG
[2018-01-16] MEDS ORDERED: cefTRIAXone 2 GM/100 ML BAG (PRE-DOCKED) IVPB SCH (13:30)
[2018-01-16] MEDS ORDERED: cefTRIAXone 1 GM/50 ML BAG (PRE-DOCKED) IVPB ONE (13:32)
--- NOTE | 2018-01-16 13:43 | PN ---
Progress Note (short form) - Note Progress Note: intermittent fevers Vital Signs Period Temp Pulse Resp BP Sys/Jc Pulse Ox Last 24 Hr 98.9 F-101.4 F 93-111 20-20 130-142/59-86 96-96 cor-rrr lungs decreased bs at the RIght base abd soft,nt ext no edema CBC, BMP 01/15/18 06:35 01/15/18 06:35 cxray right infiltrate with effusion hiv rna pending a/p suspect PNEUMOCOCCAL pneumonia-with possible empyema or parapneumonic effusion- needs thoracentesis continue rocephin f/neri HIV RNA f/u sputum afb (respiratory to induce) awaiting call back from [facility] will need hep c addressed as outpt Problem List - Problems (1) Pneumonia Code(s): J18.9 - PNEUMONIA, UNSPECIFIED ORGANISM Qualifiers: Pneumonia type: due to unspecified organism Laterality: right Lung location: lower lobe of lung Qualified Code(s): J18.1 - Lobar pneumonia, unspecified organism (2) Diabetes mellitus Code(s): E11.9 - TYPE 2 DIABETES MELLITUS WITHOUT COMPLICATIONS Qualifiers: Diabetes mellitus type: other specified (including JAIME) Diabetes mellitus complication status: with unspecified complications Diabetes mellitus fpc insulin use: unspecified fpc insulin use status Qualified Code(s): E13.8 - Other specified diabetes mellitus with unspecified complications
[2018-01-16] MEDS ORDERED: CEFTRIAXONE 1 G/50 ML PREMIX 50 ML IVPB ONE (14:00)
--- NOTE | 2018-01-16 18:15 | PN ---
Physical Exam: SUBJECTIVE: Patient seen and examined at bedside. present. No further episodes sweats or chills. OBJECTIVE: Vital Signs Period Temp Pulse Resp BP Sys/Jc Pulse Ox Last 24 Hr 98.9 F-101 F 93-109 20-20 131-142/59-79 96-96 GENERAL: The patient is awake, alert, and fully oriented, in no acute distress. Thin, frail, cachectic. Temporal wasting. Skin warm and dry. Weak, ill-appearing LUNGS: Diminished breath sounds on right HEART: Regular rate and rhythm, S1, S2 ABDOMEN: Soft, nontender, nondistended, normoactive bowel sounds, no guarding, no rebound EXTREMITIES: 2+ pulses, warm, well-perfused, no edema. NEUROLOGICAL: Cranial nerves II through XII grossly intact. Normal speech, gait not observed. Laboratory Results - last 24 hr 01/13/18 01/15/18 01/16/18 06:15 21:27 05:33 POC Glucometer 258 175 Hepatitis C Antibody >11.0 H 01/16/18 01/16/18 11:16 17:28 POC Glucometer 146 264 Hepatitis C Antibody CBCD WBC 11.7 K/mm3 (4.0-10.0) H 01/15/18 06:35 RBC 3.56 M/mm3 (4.00-5.60) L 01/15/18 06:35 Hgb 10.8 GM/dL (11.7-16.9) L 01/15/18 06:35 Hct 32.0 % (35.4-49) L 01/15/18 06:35 MCV 89.9 fl (80-96) 01/15/18 06:35 MCHC 33.7 g/dl (32.0-35.9) 01/15/18 06:35 RDW 13.4 % (11.9-15.9) 01/15/18 06:35 Plt Count 635 K/MM3 (134-434) H 01/15/18 06:35 MPV 7.8 fl (7.5-11.1) 01/15/18 06:35 CMP Sodium 136 mmol/L (136-145) 01/15/18 06:35 Potassium 4.1 mmol/L (3.5-5.1) 01/15/18 06:35 Chloride 100 mmol/L (98-107) 01/15/18 06:35 Carbon Dioxide 28 mmol/L (21-32) 01/15/18 06:35 Anion Gap 8 (8-16) 01/15/18 06:35 BUN 6 mg/dL (7-18) L 01/15/18 06:35 Creatinine 0.4 mg/dL (0.7-1.3) L 01/15/18 06:35 Creat Clearance w eGFR > 60 (>60) 01/15/18 06:35 Calcium 7.3 mg/dL (8.5-10.1) L 01/15/18 06:35 Total Bilirubin 0.7 mg/dL (0.2-1.0) D 01/15/18 06:35 AST 49 U/L (15-37) H D 01/15/18 06:35 ALT 52 U/L (12-78) D 01/15/18 06:35 Alkaline Phosphatase 284 U/L (45-117) H 01/15/18 06:35 Total Protein 6.2 g/dl (6.4-8.2) L 01/15/18 06:35 Albumin 1.5 g/dl (3.4-5.0) L 01/15/18 06:35 Active Medications Generic Name Dose Route Start Last Admin Trade Name Sophie PRN Reason Stop Dose Admin Acetaminophen 650 mg 01/11/18 23:24 01/16/18 10:16 Tylenol - PO 650 mg Q6H PRN Administration fever or pain Albuterol/Ipratropium 1 amp 01/12/18 16:00 01/16/18 15:40 Duoneb - NEB 1 amp RQID MICHELLE Administration Glipizide 2.5 mg 01/15/18 16:30 01/16/18 17:00 Glucotrol - PO 2.5 mg BID@0700,1630 MICHELLE Administration Sodium Chloride 1,000 mls @ 50 mls/hr 01/15/18 22:19 01/15/18 22:37 Normal Saline - IV 50 mls/hr ASDIR MICHELLE Administration CEFTRIAXONE IN IS-OSM DEXTROSE 2 gm in 50 mls @ 100 mls/hr 01/17/18 10:00 Ceftriaxone 2 Gm-D5w Bag IVPB DAILY MICHELLE Insulin Aspart 1 vial 01/12/18 13:18 01/16/18 17:32 Novolog Vial Sliding Scale - SQ 6 units ACHS MICHELLE Administration Protocol ASSESSMENT/PLAN 52 year-old male with PMH significant for NIDDM. Admitted for multi-lobar pneumonia. Sepsis due to Strep pneumoniae multilobar PNA --01/16 CXR: progressive right infiltrate with new right pleural fluid; left lung is clear --01/11 CT chest: RLL, LLL, ZAKI infiltrates; small right pleural effusions one loculated --continues to spike fevers --d/c Zosyn (x 4 days) d/c Vanc (x 4 days); start ceftriaxone --ID following --pulm following r/o HIV --preliminarily positive, second test negative Hepatitic C --positive antibody r/o tuberculosis --Quant gold positive --01/13 AFB smear negative; two AFBs pending --Dr. 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 Full code. Visit type - Emergency Visit Emergency Visit: Yes ED Registration Date: 01/11/18 Care time: The patient presented to the Emergency Department on the above date and was hospitalized for further evaluation of their emergent condition. - New Patient This patient is new to me today: No - Critical Care Critical Care patient: No
[2018-01-17] MEDS: glipiZIDE 5 MG TABLET (FP) PO SCH ×2 (06:50→16:47)
[2018-01-17] MEDS: INSULIN SLIDING SCALE (NOVOLOG) 1 VIAL SQ SCH ×4 (06:51→22:29)
[2018-01-17 07:08] LABS: BASO % 1.3 % (0-2.0); EOS % 0.5 % (0-4.5); HEMATOCRIT 31.7 % (35.4-49); HEMOGLOBIN 10.4 GM/dL (11.7-16.9); LYMPH % 16.6 % (8-40); MCH 29.7 pg (25.7-33.7); MEAN PLT VOLUME 7.6 fl (7.5-11.1); MONO % 11.7 % (3.8-10.2); NEUT % 69.9 % (42.8-82.8); PLATELET COUNT 520 K/MM3 (134-434); RBC 3.52 M/mm3 (4.00-5.60); RDW 13.2 % (11.9-15.9); WHITE BLOOD COUNT 13.1 K/mm3 (4.0-10.0)
[2018-01-17] MEDS: ACETAMINOPHEN 325 MG TABLET (FP) PO PRN ×2 (07:27→15:26)
[2018-01-17 07:59] LABS: CHLORIDE 101 mmol/L (98-107); POTASSIUM 4.3 mmol/L (3.5-5.1); SODIUM 134 mmol/L (136-145)
[2018-01-17 08:09] LABS: ALBUMIN 1.7 g/dl (3.4-5.0); ALK PHOS 266 U/L (45-117); ANION GAP 8 (8-16); BILIRUBIN,TOTAL 0.7 mg/dL (0.2-1.0); BLOOD UREA NITROGEN 5 mg/dL (7-18); CALCIUM 7.3 mg/dL (8.5-10.1); CO2 25 mmol/L (21-32); CREATININE 0.4 mg/dL (0.7-1.3); GLUCOSE,RANDOM 134 mg/dL (74-106); MAGNESIUM 1.8 mg/dL (1.8-2.4); SGOT/AST 41 U/L (15-37); SGPT/ALT 37 U/L (12-78); TOT PROT 6.5 g/dl (6.4-8.2)
[2018-01-17] MEDS: ALBUTEROL SO4 2.5/IPRATROPIUM 0.5 INH SOL 3 ML VIAL.NEB. NEB SCH ×4 (08:26→21:33)
[2018-01-17] MEDS: CEFTRIAXONE IN IS-OSM DEXTROSE 2 GM/50 ML BAG IVPB SCH (09:20)
[2018-01-17] MEDS ORDERED: cefTRIAXone 2 GM/100 ML BAG (PRE-DOCKED) IVPB SCH (10:00)
--- NOTE | 2018-01-17 14:09 | PN ---
Progress Note (short form) - Note Progress Note: intermittent fevers persist s/p thoracentesis today- only about 40 cc fluid obtained Vital Signs Period Temp Pulse Resp BP Sys/Jc Pulse Ox Last 24 Hr 98.7 F-101 F 99-110 20-20 135-150/66-91 94-94 cor-rrr lungs decreased bs on right abd soft,nt ext no edema CBC, BMP 01/17/18 05:05 01/17/18 05:05 cxray right infiltrate with effusion a/p suspect PNEUMOCOCCAL pneumonia-with possible empyema or parapneumonic effusion- f/u thoracentesis fluid results needs chest ct, appears loculated on cxray, may need decortication continue rocephin f/neri HIV-spoke with lab- NONREACTIVE f/u sputum afb from [facility] (3 samples sent)- spoke with [facility] - treated for latent TB with INH/Rifapentine 2013 will need hep c addressed as outpt Problem List - Problems (1) Pneumonia Code(s): J18.9 - PNEUMONIA, UNSPECIFIED ORGANISM Qualifiers: Pneumonia type: due to unspecified organism Laterality: right Lung location: lower lobe of lung Qualified Code(s): J18.1 - Lobar pneumonia, unspecified organism (2) Diabetes mellitus Code(s): E11.9 - TYPE 2 DIABETES MELLITUS WITHOUT COMPLICATIONS Qualifiers: Diabetes mellitus type: other specified (including JAIME) Diabetes mellitus complication status: with unspecified complications Diabetes mellitus director investor relations insulin use: unspecified director investor relations insulin use status Qualified Code(s): E13.8 - Other specified diabetes mellitus with unspecified complications
[2018-01-17 14:30] LABS: GLUCOSE,PLEURAL FLUID 98.424; TOTAL PROTEIN,PLEURAL FLUID 5.049
[2018-01-17 15:13] LABS: PLEURAL FLUID COLOR YELLOW
[2018-01-17 15:19] LABS: PLEURAL FLUID APPEARANCE SLIGHTLY CLOUDY; PLEURAL FLUID RBC 4502 /mm3
[2018-01-17 16:05] LABS: PLEURAL FLUID MACROPHAGES 6 %; PLEURAL FLUID NEUTROPHIL 94 %
--- NOTE | 2018-01-17 16:53 | PN ---
Physical Exam: SUBJECTIVE: Patient seen and examined after thora. c/o pain at needle site, however breathing notable improved. Event: - Febrile this afternoon OBJECTIVE: Vital Signs Period Temp Pulse Resp BP Sys/Jc Pulse Ox Last 24 Hr 98.7 F-101 F 97-110 20-20 124-150/66-91 94-94 PE Gen: thin Neuro: alert,awake, cn 2-12intact Pulm: L clear, R upper lobe dressing cdi, diminished however slight bs present CV: s1 s2 rrr no mrg Abd: s nt nd +bs Ext: warm no le edema Laboratory Results - last 24 hr 01/12/18 01/13/18 01/16/18 13:55 10:00 17:28 WBC RBC Hgb Hct MCV MCH MCHC RDW Plt Count MPV Neutrophils % Lymphocytes % Monocytes % Eosinophils % Basophils % Sodium Potassium Chloride Carbon Dioxide Anion Gap BUN Creatinine Creat Clearance w eGFR POC Glucometer 264 Random Glucose Calcium Magnesium Total Bilirubin AST ALT Alkaline Phosphatase Total Protein Albumin Pleural Fluid Source Pleural Color Pleural Appearance Pleural WBC Pleural RBC Pleural Neutrophils Pleural Macrophages Pleural Total Protein Pleural Albumin Pleural LDH Pleural Glucose Pleural Amylase Pleural Cholesterol Pleural Triglycerides HCV Quantitation [id number] HCV RNA PCR log copper plater/ml 6.623 HIV Note No Result Required. 01/16/18 01/17/18 01/17/18 22:10 05:05 05:05 WBC 13.1 H RBC 3.52 L Hgb 10.4 L Hct 31.7 L MCV 90.0 MCH 29.7 MCHC 33.0 RDW 13.2 Plt Count 520 H MPV 7.6 Neutrophils % 69.9 Lymphocytes % 16.6 D Monocytes % 11.7 H Eosinophils % 0.5 Basophils % 1.3 Sodium 134 L Potassium 4.3 Chloride 101 Carbon Dioxide 25 Anion Gap 8 BUN 5 L Creatinine 0.4 L Creat Clearance w eGFR > 60 POC Glucometer 310 Random Glucose 134 H D Calcium 7.3 L Magnesium 1.8 Total Bilirubin 0.7 AST 41 H ALT 37 D Alkaline Phosphatase 266 H Total Protein 6.5 Albumin 1.7 L Pleural Fluid Source Pleural Color Pleural Appearance Pleural WBC Pleural RBC Pleural Neutrophils Pleural Macrophages Pleural Total Protein Pleural Albumin Pleural LDH Pleural Glucose Pleural Amylase Pleural Cholesterol Pleural Triglycerides HCV Quantitation HCV RNA PCR log copper plater/ml HIV Note 01/17/18 01/17/18 05:55 12:20 WBC RBC Hgb Hct MCV MCH MCHC RDW Plt Count MPV Neutrophils % Lymphocytes % Monocytes % Eosinophils % Basophils % Sodium Potassium Chloride Carbon Dioxide Anion Gap BUN Creatinine Creat Clearance w eGFR POC Glucometer 165 Random Glucose Calcium Magnesium Total Bilirubin AST ALT Alkaline Phosphatase Total Protein Albumin Pleural Fluid Source Pleural fluid Pleural Color Yellow Pleural Appearance Slightly cloudy Pleural WBC 1554 Pleural RBC 4502 Pleural Neutrophils 94 Pleural Macrophages 6 Pleural Total Protein 5.049 Pleural Albumin 1 Pleural LDH 1561.713 Pleural Glucose 98.424 Pleural Amylase 37.411 Pleural Cholesterol < 50 Pleural Triglycerides 59 HCV Quantitation HCV RNA PCR log copper plater/ml HIV Note Active Medications Generic Name Dose Route Start Last Admin Trade Name Freq PRN Reason Stop Dose Admin Acetaminophen 650 mg 01/11/18 23:24 01/17/18 15:26 Tylenol - PO 650 mg Q6H PRN Administration fever or pain Albuterol/Ipratropium 1 amp 01/12/18 16:00 01/17/18 15:50 Duoneb - NEB 1 amp RQID MICHELLE Administration Glipizide 2.5 mg 01/15/18 16:30 01/17/18 16:47 Glucotrol - PO 2.5 mg BID@0700,1630 MICHELLE Administration Sodium Chloride 1,000 mls @ 50 mls/hr 01/15/18 22:19 01/15/18 22:37 Normal Saline - IV 50 mls/hr ASDIR MICHELLE Administration CEFTRIAXONE IN IS-OSM DEXTROSE 2 gm in 50 mls @ 100 mls/hr 01/17/18 10:00 09:20 Ceftriaxone 2 Gm-D5w Bag IVPB 100 mls/hr DAILY [facility]HELLE Administration Insulin Aspart 1 vial 01/12/18 13:18 01/17/18 16:48 Novolog Vial Sliding Scale - SQ 6 units ACHS [facility]HELLE Administration Protocol Imaging: - 01/16 CXR: progressive right infiltrate with new right pleural fluid; left lung is clear - 01/11 CT chest: RLL, LLL, ZAKI infiltrates; small right pleural effusions one loculated Abx: - Zosyn/Vanco 4 days Assessment: 52 year old male with PMH significant for NIDDM. Admitted for multi- lobar pneumonia. Plan: 1. Sepsis due to Strep pneumoniae multilobar PNA - s/p thoracentesis today, 40cc removal - Appears to be exudatative - Serology/cx pending - Continue ceftriaxone 2gm daily (day2) - Yahir 2. r/o TB, hx of TB - Treated for latent TB, 11-30-2012 2 months inh/rifampin - AFB x3 sent 3. HIV - Non reactive 4. DM II, uncontrolled - Started glipizide - ISS, BGM ACHS 5. DVT prophylaxis - subq heparin 6. Physical therapy 7. Hypocalcemia - Corrected 9.14 Visit type - Emergency Visit Emergency Visit: Yes ED Registration Date: 01/11/18 Care time: The patient presented to the Emergency Department on the above date and was hospitalized for further evaluation of their emergent condition. - New Patient This patient is new to me today: No - Critical Care Critical Care patient: No
[2018-01-17] MEDS ORDERED: SODIUM CHLORIDE 1,000 ML IV SCH (18:04)
--- NOTE | 2018-01-17 18:06 | PN ---
Progress Note (short form) - Note Progress Note: Denies any complaints Intermittent fever Vital Signs Period Temp Pulse Resp BP Sys/Jc Pulse Ox Last 24 Hr 98.7 F-101 F 97-110 20-20 124-150/66-91 94-94 PE; A1x3 Neck: supple HEENT: EOMI Lungs: decreased sound Rt side CVS: s1S2 Abd: Benign Ext: No edema CMP Sodium 134 mmol/L (136-145) L 01/17/18 05:05 Potassium 4.3 mmol/L (3.5-5.1) 01/17/18 05:05 Chloride 101 mmol/L (98-107) 01/17/18 05:05 Carbon Dioxide 25 mmol/L (21-32) 01/17/18 05:05 Anion Gap 8 (8-16) 01/17/18 05:05 BUN 5 mg/dL (7-18) L 01/17/18 05:05 Creatinine 0.4 mg/dL (0.7-1.3) L 01/17/18 05:05 Creat Clearance w eGFR > 60 (>60) 01/17/18 05:05 POC Glucometer 251 UNITS (80-120) 01/17/18 16:45 Random Glucose 134 mg/dL (74-106) H D 01/17/18 05:05 Hemoglobin A1c % 12.5 % (4.8-6.0) H 01/12/18 08:00 Lactic Acid 1.7 mmol/L (0.0-2.0) 01/11/18 17:20 Calcium 7.3 mg/dL (8.5-10.1) L 01/17/18 05:05 Phosphorus 2.7 mg/dL (2.5-4.9) D 01/13/18 06:15 Magnesium 1.8 mg/dL (1.8-2.4) 01/17/18 05:05 Total Bilirubin 0.7 mg/dL (0.2-1.0) 01/17/18 05:05 AST 41 U/L (15-37) H 01/17/18 05:05 ALT 37 U/L (12-78) D 01/17/18 05:05 Alkaline Phosphatase 266 U/L (45-117) H 01/17/18 05:05 Creatine Kinase 25 IU/L (39-308) L 01/11/18 17:07 Troponin I < 0.02 ng/ml (0.00-0.05) 01/11/18 17:07 Total Protein 6.5 g/dl (6.4-8.2) 01/17/18 05:05 Albumin 1.7 g/dl (3.4-5.0) L 01/17/18 05:05 Lipase 173 U/L (73-393) 01/11/18 16:21 TSH 0.94 uIU/ml (0.358-3.74) 01/12/18 08:00 Current Medications Generic Name Dose Route Start Last Admin Trade Name Freq PRN Reason Stop Dose Admin Acetaminophen 650 mg 01/11/18 23:24 01/17/18 15:26 Tylenol - PO 650 mg Q6H PRN Administration fever or pain Albuterol/Ipratropium 1 amp 01/12/18 16:00 01/17/18 15:50 Duoneb - NEB 1 amp RQID MICHELLE Administration Glipizide 2.5 mg 01/15/18 16:30 01/17/18 16:47 Glucotrol - PO 2.5 mg BID@0700,1630 MICHELLE Administration CEFTRIAXONE IN IS-OSM DEXTROSE 2 gm in 50 mls @ 100 mls/hr 01/17/18 10:00 09:20 Ceftriaxone 2 Gm-D5w Bag IVPB 100 mls/hr DAILY MICHELLE Administration Sodium Chloride 1,000 mls @ 75 mls/hr 01/17/18 18:04 Normal Saline - IV ASDIR MICHELLE Insulin Aspart 1 vial 01/12/18 13:18 01/17/18 16:48 Novolog Vial Sliding Scale - SQ 6 units ACHS MICHELLE Administration Protocol AP: Pneumonia HEP C DM uncontrolled: A1c 12.5 No Metformin for now because of Pneumonia ?sepsis Increase Glipizide 5mg BID premeals Novolog SS coverage Problem List - Problems (1) Diabetes mellitus Code(s): E11.9 - TYPE 2 DIABETES MELLITUS WITHOUT COMPLICATIONS Qualifiers: Diabetes mellitus type: other specified (including JAIME) Diabetes mellitus complication status: with unspecified complications Diabetes mellitus senior living insulin use: unspecified exterminator insulin use status Qualified Code(s): E13.8 - Other specified diabetes mellitus with unspecified complications (2) Hyperglycemia Code(s): R73.9 - HYPERGLYCEMIA, UNSPECIFIED (3) Pneumonia Code(s): J18.9 - PNEUMONIA, UNSPECIFIED ORGANISM Qualifiers: Pneumonia type: due to unspecified organism Laterality: right Lung location: lower lobe of lung Qualified Code(s): J18.1 - Lobar pneumonia, unspecified organism (4) Right-sided chest pain Code(s): R07.9 - CHEST PAIN, UNSPECIFIED
[2018-01-18] MEDS: ACETAMINOPHEN 325 MG TABLET (FP) PO PRN ×3 (02:59→18:48)
[2018-01-18] MEDS: glipiZIDE 5 MG TABLET (FP) PO SCH ×2 (06:53→17:08)
[2018-01-18] MEDS: INSULIN SLIDING SCALE (NOVOLOG) 1 VIAL SQ SCH ×4 (06:53→21:22)
--- NOTE | 2018-01-18 08:23 | PN ---
Physical Exam: SUBJECTIVE: Patient seen and examined. He c/o pain to his right chest and posterior back. Improved with tylenol Events: - Febrile t max 102.2 - Repeat blood, urine cx sent OBJECTIVE: Vital Signs Period Temp Pulse Resp BP Sys/Jc Pulse Ox Last 24 Hr 98.2 F-102.2 F 76-117 20-20 115-150/52-91 94 PE Neuro: alert, awake, cn 2-12intact Pulm: L clear, R lobe diminished, decreased CV: s1 s2 rrr no mrg Abd: s nt nd +bs Ext: warm no le edema Laboratory Results - last 24 hr 01/12/18 01/17/18 01/17/18 13:55 12:20 16:45 POC Glucometer 251 Pleural Fluid Source Pleural fluid Pleural Color Yellow Pleural Appearance Slightly cloudy Pleural WBC 1554 Pleural RBC 4502 Pleural Neutrophils 94 Pleural Macrophages 6 Pleural Chloride No Result Required. Pleural Total Protein 5.049 Pleural Albumin 1 Pleural LDH 1561.713 Pleural Glucose 98.424 Pleural Amylase 37.411 Pleural Cholesterol < 50 Pleural Triglycerides 59 HIV Note No Result Required. Active Medications Generic Name Dose Route Start Last Admin Trade Name Freq PRN Reason Stop Dose Admin Acetaminophen 650 mg 01/11/18 23:24 01/18/18 02:59 Tylenol - PO 650 mg Q6H PRN Administration fever or pain Albuterol/Ipratropium 1 amp 01/12/18 16:00 01/17/18 21:33 Duoneb - NEB 1 amp RQID MICHELLE Administration Glipizide 5 mg 01/18/18 07:00 01/18/18 06:53 Glucotrol - PO 5 mg BID@0700,1630 MICHELLE Administration CEFTRIAXONE IN IS-OSM DEXTROSE 2 gm in 50 mls @ 100 mls/hr 01/17/18 10:00 09:20 Ceftriaxone 2 Gm-D5w Bag IVPB 100 mls/hr DAILY MICHELLE Administration Insulin Aspart 1 vial 01/12/18 13:18 01/18/18 06:53 Novolog Vial Sliding Scale - SQ 2 units ACHS MICHELLE Administration Protocol Imaging: - 01/16 CXR: progressive right infiltrate with new right pleural fluid; left lung is clear - 01/11 CT chest: RLL, LLL, ZAKI infiltrates; small right pleural effusions one loculated Abx: - Completed Zosyn/Vanco 4 days Assessment: 52 year old male with PMH significant for NIDDM. Admitted for multi- lobar pneumonia. Plan: 1. Sepsis due to Strep pneumoniae multilobar PNA - s/p thoracentesis 01/17 - Pleural fluid suggestive exudatative - Serology/cx pending - Continue ceftriaxone 2gm daily (day 3) - Duonebs - Pulm/ID following 2. r/o TB, hx of TB - Treated for latent TB, Nov- February 2013 x2 months inh/rifampin - AFB x3 sent 3. HIV - Non reactive 4. DM II, uncontrolled - Increased glipizide 5mg BIDAC - ISS, BGM ACHS 5. DVT prophylaxis - Subq heparin 6. Physical therapy Visit type - Emergency Visit Emergency Visit: Yes ED Registration Date: 01/11/18 Care time: The patient presented to the Emergency Department on the above date and was hospitalized for further evaluation of their emergent condition. - New Patient This patient is new to me today: No - Critical Care Critical Care patient: No
[2018-01-18] MEDS: ALBUTEROL SO4 2.5/IPRATROPIUM 0.5 INH SOL 3 ML VIAL.NEB. NEB SCH ×4 (08:54→20:45)
[2018-01-18] MEDS: CEFTRIAXONE IN IS-OSM DEXTROSE 2 GM/50 ML BAG IVPB SCH (10:19)
--- NOTE | 2018-01-18 15:15 | PN ---
Progress Note (short form) - Note Progress Note: PULMONARY s/p diagnostic thoracentesis with only 40mL drainage. Gram stain negative but fluid analysis strongly exudative. No fevers or chills but febrile to 102 overnight. Denies shortness of breath. Last Vital Signs Temp Pulse Resp BP Pulse Ox 99.2 F 106 H 20 132/73 95 01/18/18 14:00 01/18/18 14:00 01/18/18 10:00 01/18/18 14:00 01/18/18 11:00 Gen: NAD at rest Heart: RRR Lung: decreased breath sounds at the bases Abd: soft, nontender Ext: no edema CBC, BMP 01/17/18 05:05 01/17/18 05:05 Active Medications Acetaminophen (Tylenol -) 650 mg PO Q6H PRN PRN Reason: fever or pain Last Admin: 01/18/18 10:19 Dose: 650 mg Albuterol/Ipratropium (Duoneb -) 1 amp NEB RQID [facility] Last Admin: 01/18/18 12:30 Dose: 1 amp Glipizide (Glucotrol -) 5 mg PO BID@0700,1630 [facility] Last Admin: 01/18/18 06:53 Dose: 5 mg CEFTRIAXONE IN IS-OSM DEXTROSE (Ceftriaxone 2 Gm-D5w Bag) 2 gm in 50 mls @ 100 mls/hr IVPB DAILY [facility] Last Admin: 01/18/18 10:19 Dose: 100 mls/hr Insulin Aspart (Novolog Vial Sliding Scale -) 1 vial SQ ACHS MICHELLE PRN Reason: Protocol Last Admin: 01/18/18 11:42 Dose: 2 units A/P Pneumonia Loculated Pleural Effusion ?h/o TB DM - continue antibiotics - f/u pleural fluid cultures, cytology - will order repeat CT chest noncontrast - will ask thoracic surgery to consult for possible VATS - DVT prophylaxis
--- NOTE | 2018-01-18 15:57 | PN ---
Progress Note (short form) - Note Progress Note: intermittent fevers persist s/p thoracentesis yesterday- only about 40 cc fluid obtained-c/w exudate Vital Signs Period Temp Pulse Resp BP Sys/Jc Pulse Ox Last 24 Hr 98.2 F-102.2 F 76-117 20-20 115-145/52-85 90-95 cor-rrr lungs decreased bs on the right abd soft,nt ext no edema CBC, BMP 01/17/18 05:05 01/17/18 05:05 Microbiology 01/17/18 12:20 Pleural Fluid Gram Stain - Final 01/17/18 12:20 Pleural Fluid Body Fluid Culture - Preliminary NO AEROBIC GROWTH, 24 HRS 01/15/18 17:00 Sputum - Aerosol Induced AFB Smear Concentration - Preliminary 01/15/18 17:00 Sputum - Aerosol Induced Direct Acid Fast Bacilli Smear - Final 01/15/18 17:00 Sputum - Aerosol Induced Mycobacterial Culture - Preliminary 01/16/18 06:00 Sputum - Expectorated AFB Smear Concentration - Preliminary 01/16/18 06:00 Sputum - Expectorated Direct Acid Fast Bacilli Smear - Final 01/16/18 06:00 Sputum - Expectorated Mycobacterial Culture - Preliminary 01/13/18 11:00 Sputum - Expectorated AFB Smear Concentration - Preliminary 01/13/18 11:00 Sputum - Expectorated Direct Acid Fast Bacilli Smear - Final 01/13/18 11:00 Sputum - Expectorated Mycobacterial Culture - Preliminary 01/17/18 12:20 Pleural Fluid MAGI Preparation - Preliminary 01/17/18 12:20 Pleural Fluid Fungal Culture - Preliminary a/p positive pneumococcal antigen suspect PNEUMOCOCCAL pneumonia-with possible empyema or parapneumonic effusion- exudative effusion-most likely loculated f/u chest ct, f/u thoracic consult empiric switch to zosyn check esr/crp f/neri HIV-spoke with lab- NONREACTIVE f/u sputum afb from [facility] (3 samples sent)- spoke with [facility] - treated for latent TB with INH/Rifapentine 2013 will need hep c addressed as outpt Problem List - Problems (1) Pneumonia Code(s): J18.9 - PNEUMONIA, UNSPECIFIED ORGANISM Qualifiers: Pneumonia type: due to unspecified organism Laterality: right Lung location: lower lobe of lung Qualified Code(s): J18.1 - Lobar pneumonia, unspecified organism (2) Diabetes mellitus Code(s): E11.9 - TYPE 2 DIABETES MELLITUS WITHOUT COMPLICATIONS Qualifiers: Diabetes mellitus type: other specified (including JAIME) Diabetes mellitus complication status: with unspecified complications Diabetes mellitus organ tuner electronic insulin use: unspecified organ tuner electronic insulin use status Qualified Code(s): E13.8 - Other specified diabetes mellitus with unspecified complications
[2018-01-18] MEDS ORDERED: PIPERACILLIN/TAZOB 3.375 GM/50 ML PRE-DOCKED IVPB SCH (16:15)
[2018-01-18] MEDS: PIPERACILLIN/TAZOB 3.375 GM 3.375 GM in DEXTROSE 5%-WATER - 50 ML IVPB SCH ×2 (18:49→21:19)
[2018-01-18] MEDS ORDERED: PT OWN MED DRAWER 7, Y5N ONE (20:48)
[2018-01-19] MEDS: ACETAMINOPHEN 325 MG TABLET (FP) PO PRN ×3 (00:30→22:27)
[2018-01-19] MEDS: PIPERACILLIN/TAZOB 3.375 GM 3.375 GM in DEXTROSE 5%-WATER - 50 ML IVPB SCH ×4 (02:47→20:18)
[2018-01-19] MEDS: INSULIN SLIDING SCALE (NOVOLOG) 1 VIAL SQ SCH ×4 (06:20→22:05)
[2018-01-19] MEDS: glipiZIDE 5 MG TABLET (FP) PO SCH ×2 (06:21→18:25)
[2018-01-19 07:23] LABS: ALBUMIN 1.6 g/dl (3.4-5.0); ANION GAP 10 (8-16); BILIRUBIN,TOTAL 0.4 mg/dL (0.2-1.0); BLOOD UREA NITROGEN 6 mg/dL (7-18); CALCIUM 7.9 mg/dL (8.5-10.1); CHLORIDE 101 mmol/L (98-107); CO2 25 mmol/L (21-32); CREATININE 0.5 mg/dL (0.7-1.3); GLUCOSE,RANDOM 153 mg/dL (74-106); POTASSIUM 4.5 mmol/L (3.5-5.1); SGOT/AST 75 U/L (15-37); SGPT/ALT 46 U/L (12-78); SODIUM 136 mmol/L (136-145); TOT PROT 6.9 g/dl (6.4-8.2)
[2018-01-19 07:24] LABS: ALK PHOS 276 U/L (45-117)
[2018-01-19] MEDS: ALBUTEROL SO4 2.5/IPRATROPIUM 0.5 INH SOL 3 ML VIAL.NEB. NEB SCH ×4 (07:34→21:32)
[2018-01-19 07:47] LABS: BASO % 1.2 % (0-2.0); EOS % 1.6 % (0-4.5); HEMATOCRIT 30.5 % (35.4-49); HEMOGLOBIN 10.2 GM/dL (11.7-16.9); LYMPH % 18.5 % (8-40); MCH 29.9 pg (25.7-33.7); MCHC 33.5 g/dl (32.0-35.9); MEAN CELL VOLUME 89.3 fl (80-96); MEAN PLT VOLUME 7.7 fl (7.5-11.1); MONO % 12.7 % (3.8-10.2); PLATELET COUNT 420 K/MM3 (134-434); RBC 3.42 M/mm3 (4.00-5.60); RDW 13.4 % (11.9-15.9); WHITE BLOOD COUNT 10.1 K/mm3 (4.0-10.0)
--- NOTE | 2018-01-19 08:15 | PN ---
Progress Note (short form) - Note Progress Note: Thoracic Progress Note: Images, cultures, and notes reviewed. Likely loculated effusion, possible empyema. Given age will place on schedule for OR on Monday. Will see and discuss surgery versus other options with patient tomorrow AM. -Please optimize medically for bronchoscopy, vats, thoracotomy and check all labs and order type and screen.
--- NOTE | 2018-01-19 10:39 | PN ---
Physical Exam: SUBJECTIVE: Patient seen and examined. He is oob to chair. He c/o R sided back pain/thoracentesis pain, interrupting his sleep, tylenol not working. Denies chills, fever. Event: - Febrile this am 100.2 OBJECTIVE: Vital Signs Period Temp Pulse Resp BP Sys/Jc Pulse Ox Last 24 Hr 98.3 F-101.2 F 79-115 20-22 120-155/61-99 95-96 PE Neuro: alert, awake, cn 2-12intact Pulm: R lobe diminished, decreased - unchanged CV: s1 s2 rrr no mrg Abd: s nt nd +bs Ext: warm no le edema Laboratory Results - last 24 hr 01/19/18 01/19/18 01/19/18 05:36 06:30 06:30 WBC 10.1 H RBC 3.42 L Hgb 10.2 L Hct 30.5 L MCV 89.3 MCH 29.9 MCHC 33.5 RDW 13.4 Plt Count 420 MPV 7.7 Neutrophils % 66.0 Lymphocytes % 18.5 Monocytes % 12.7 H Eosinophils % 1.6 D Basophils % 1.2 Sodium 136 Potassium 4.5 Chloride 101 Carbon Dioxide 25 Anion Gap 10 BUN 6 L Creatinine 0.5 L D Creat Clearance w eGFR > 60 POC Glucometer 181 Random Glucose 153 H Calcium 7.9 L Total Bilirubin 0.4 D AST 75 H D ALT 46 D Alkaline Phosphatase 276 H Total Protein 6.9 Albumin 1.6 L Active Medications Generic Name Dose Route Start Last Admin Trade Name Freq PRN Reason Stop Dose Admin Acetaminophen 650 mg 01/11/18 23:24 01/19/18 06:23 Tylenol - PO 650 mg Q6H PRN Administration fever or pain Albuterol/Ipratropium 1 amp 01/12/18 16:00 01/19/18 07:34 Duoneb - NEB 1 amp RQID MICHELLE Administration Glipizide 5 mg 01/18/18 07:00 01/19/18 06:21 Glucotrol - PO 5 mg BID@0700,1630 MICHELLE Administration Piperacillin Sod/Tazobactam 50 mls @ 100 mls/hr 01/18/18 16:15 01/19/18 08:11 Sod 3.375 gm/ Dextrose IVPB 100 mls/hr Q6H-IV MICHELLE Administration Insulin Aspart 1 vial 01/12/18 13:18 01/19/18 06:20 Novolog Vial Sliding Scale - SQ 2 units ACHS MICHELLE Administration Protocol Oxycodone HCl 5 mg 01/19/18 10:24 Roxicodone - PO Q6H PRN PAIN LEVEL 4 - 6 Imaging: - 01/16 CXR: progressive right infiltrate with new right pleural fluid; left lung is clear - 01/11 CT chest: RLL, LLL, ZAKI infiltrates; small right pleural effusions one loculated Abx: - Completed Zosyn/Vanco 4 days Assessment: 52 year old male with PMH significant for NIDDM. Admitted for multi- lobar pneumonia. Plan: 1. Sepsis due to Strep pneumoniae multilobar PNA - CT surgery to discuss surgical options for likely loculated effusion/empyema on Monday - s/p thoracentesis 01/17 - Pleural fluid suggestive exudatative - Serology/cx pending - Continue ceftriaxone 2gm daily (day 4) - Will send pre op labs Monday - CRP/ESR pending 2. r/o TB, hx of TB - Treated for latent TB, Nov- February 2013 x2 months inh/rifampin - AFB x3 sent 3. HIV - Non reactive 4. DM II, uncontrolled - Gipizide 5mg BIDAC - ISS, BGM ACHS 5. DVT prophylaxis - Subq heparin Visit type - Emergency Visit Emergency Visit: Yes ED Registration Date: 01/11/18 Care time: The patient presented to the Emergency Department on the above date and was hospitalized for further evaluation of their emergent condition. - New Patient This patient is new to me today: No - Critical Care Critical Care patient: No
[2018-01-19] MEDS: oxyCODONE HCL 5 MG TABLET PO PRN ×2 (10:57→20:18)
--- NOTE | 2018-01-19 13:22 | PN ---
Progress Note (short form) - Note Progress Note: intermittent fevers persist s/p thoracentesis-c/w exudate Vital Signs Period Temp Pulse Resp BP Sys/Jc Pulse Ox Last 24 Hr 98.3 F-101.2 F 79-115 20-22 120-155/61-99 95-96 cor-rrr lungs decresased bs right base abd soft,nt ext no edema CBC, BMP 01/19/18 06:30 01/19/18 06:30 Microbiology 01/17/18 20:45 Urine - Urine Clean Catch Urine Culture - Final NO GROWTH OBTAINED 01/13/18 11:00 Sputum - Expectorated AFB Smear Concentration - Final 01/13/18 11:00 Sputum - Expectorated Direct Acid Fast Bacilli Smear - Final 01/13/18 11:00 Sputum - Expectorated Mycobacterial Culture - Preliminary 01/16/18 06:00 Sputum - Expectorated AFB Smear Concentration - Preliminary 01/16/18 06:00 Sputum - Expectorated Direct Acid Fast Bacilli Smear - Final 01/16/18 06:00 Sputum - Expectorated Mycobacterial Culture - Preliminary 01/15/18 17:00 Sputum - Aerosol Induced AFB Smear Concentration - Final 01/15/18 17:00 Sputum - Aerosol Induced Direct Acid Fast Bacilli Smear - Final 01/15/18 17:00 Sputum - Aerosol Induced Mycobacterial Culture - Preliminary 01/17/18 21:30 Blood - Peripheral Venous Blood Culture - Preliminary NO GROWTH OBTAINED AFTER 24 HOURS, INCUBATION TO CONTINUE FOR 4 DAYS. 01/17/18 18:45 Blood - Peripheral Venous Blood Culture - Preliminary NO GROWTH OBTAINED AFTER 24 HOURS, INCUBATION TO CONTINUE FOR 4 DAYS. 01/17/18 12:20 Pleural Fluid Gram Stain - Final 01/17/18 12:20 Pleural Fluid Body Fluid Culture - Preliminary NO AEROBIC GROWTH, 24 HRS 01/17/18 12:20 Pleural Fluid MAGI Preparation - Preliminary 01/17/18 12:20 Pleural Fluid Fungal Culture - Preliminary 01/11/18 17:30 Blood - Peripheral Venous Blood Culture - Final NO GROWTH AFTER 5 DAYS INCUBATION 01/11/18 17:20 Blood - Peripheral Venous Blood Culture - Final NO GROWTH AFTER 5 DAYS INCUBATION 01/11/18 14:45 Nasopharyngeal Swab Influenza Types A,B Antigen (VALARIE) - Final 01/11/18 14:45 Nasopharyngeal Swab - Final 01/13/18 13:37 Sputum - Expectorated Gram Stain - Final 01/13/18 13:37 Sputum - Expectorated Sputum Culture - Final Yeast Like Organism 01/11/18 17:44 Sputum - Expectorated Gram Stain - Final 01/11/18 17:44 Sputum - Expectorated Sputum Culture - Final NORMAL RESPIRATORY ANNA 01/12/18 05:03 Urine - Urine Clean Catch Urine Culture - Final NO GROWTH OBTAINED 01/12/18 18:00 Urine For Antigen Detection Legionella Antigen - Final 01/12/18 18:00 Urine For Antigen Detection Streptococcus pneumoniae Antigen (M - Final 01/12/18 05:03 Urine For Antigen Detection Legionella Antigen - Final 01/12/18 05:03 Urine For Antigen Detection Streptococcus pneumoniae Antigen (M - Final a/p positive pneumococcal antigen suspect PNEUMOCOCCAL pneumonia-with possible empyema or parapneumonic effusion- exudative effusion-most likely loculated f/u chest ct, f/u thoracic consult empiric switch to zosyn given persistent fevers check esr/crp f/neri HIV-spoke with lab- NONREACTIVE f/u sputum afb from [facility] (3 samples sent)-3 sputum afb smears negative, 2 afb MTB probes negative, will d/c isolation spoke with [facility] - treated for latent TB with INH/Rifapentine 2013 will need hep c addressed as outpt check AFP Problem List - Problems (1) Pneumonia Code(s): J18.9 - PNEUMONIA, UNSPECIFIED ORGANISM Qualifiers: Pneumonia type: due to unspecified organism Laterality: right Lung location: lower lobe of lung Qualified Code(s): J18.1 - Lobar pneumonia, unspecified organism (2) Diabetes mellitus Code(s): E11.9 - TYPE 2 DIABETES MELLITUS WITHOUT COMPLICATIONS Qualifiers: Diabetes mellitus type: other specified (including JAIME) Diabetes mellitus complication status: with unspecified complications Diabetes mellitus prison insulin use: unspecified prison insulin use status Qualified Code(s): E13.8 - Other specified diabetes mellitus with unspecified complications
[2018-01-19] MEDS ORDERED: PT OWN MED DRAWER 7, Y5N ONE ×2 (15:45→18:31)
[2018-01-19] MEDS ORDERED: INSULIN (NOVOLOG) ASPART 100 UNITS/ML 10ML VIAL ONE (18:32)
[2018-01-20] MEDS: PIPERACILLIN/TAZOB 3.375 GM 3.375 GM in DEXTROSE 5%-WATER - 50 ML IVPB SCH ×4 (02:10→20:41)
[2018-01-20] MEDS: glipiZIDE 5 MG TABLET (FP) PO SCH ×2 (06:21→17:13)
[2018-01-20] MEDS: INSULIN SLIDING SCALE (NOVOLOG) 1 VIAL SQ SCH ×4 (06:21→21:59)
[2018-01-20] MEDS: ALBUTEROL SO4 2.5/IPRATROPIUM 0.5 INH SOL 3 ML VIAL.NEB. NEB SCH ×4 (07:30→21:20)
[2018-01-20] MEDS: ACETAMINOPHEN 325 MG TABLET (FP) PO PRN ×2 (07:54→17:14)
[2018-01-20 08:14] LABS: BASO % 1.2 % (0-2.0); EOS % 1.8 % (0-4.5); HEMATOCRIT 30.7 % (35.4-49); HEMOGLOBIN 10.2 GM/dL (11.7-16.9); LYMPH % 21.3 % (8-40); MCH 29.6 pg (25.7-33.7); MCHC 33.1 g/dl (32.0-35.9); MEAN CELL VOLUME 89.2 fl (80-96); MEAN PLT VOLUME 7.7 fl (7.5-11.1); MONO % 12.2 % (3.8-10.2); NEUT % 63.5 % (42.8-82.8); PLATELET COUNT 416 K/MM3 (134-434); RBC 3.44 M/mm3 (4.00-5.60); RDW 13.3 % (11.9-15.9); WHITE BLOOD COUNT 9.8 K/mm3 (4.0-10.0)
[2018-01-20 08:27] LABS: CHLORIDE 99 mmol/L (98-107); POTASSIUM 4.3 mmol/L (3.5-5.1); SODIUM 135 mmol/L (136-145)
--- NOTE | 2018-01-20 08:32 | PN ---
Progress Note, Physician Chief Complaint: FRANSICO Lundberg started day 1 Complains of right post scapular pain - Current Medication List Current Medications: Active Medications Acetaminophen (Tylenol -) 650 mg PO Q6H PRN PRN Reason: fever or pain Last Admin: 01/20/18 07:54 Dose: 650 mg Albuterol/Ipratropium (Duoneb -) 1 amp NEB RQID [facility] Last Admin: 01/20/18 07:30 Dose: 1 amp Glipizide (Glucotrol -) 5 mg PO BID@0700,1630 [facility] Last Admin: 01/20/18 06:21 Dose: 5 mg Piperacillin Sod/Tazobactam (Sod 3.375 gm/ Dextrose) 50 mls @ 100 mls/hr IVPB Q6H-IV MICHELLE Last Admin: 01/20/18 02:10 Dose: 100 mls/hr Insulin Aspart (Novolog Vial Sliding Scale -) 1 vial SQ ACHS MICHELLE PRN Reason: Protocol Last Admin: 01/20/18 06:21 Dose: Not Given Oxycodone HCl (Roxicodone -) 5 mg PO Q6H PRN PRN Reason: PAIN LEVEL 4 - 6 Last Admin: 01/19/18 20:18 Dose: 5 mg - Objective Vital Signs: Vital Signs Temperature 97.4 F L 01/20/18 05:20 Pulse Rate 84 01/20/18 05:20 Respiratory Rate 18 01/20/18 05:20 Blood Pressure 124/70 01/20/18 05:20 O2 Sat by Pulse Oximetry (%) 96 01/19/18 21:00 Constitutional: Yes: Cachectic, Thin Cardiovascular: Yes: Regular Rate and Rhythm, S1, S2 Respiratory: Yes: WNL, Regular, CTA Bilaterally Gastrointestinal: Yes: Soft. No: Tenderness Edema: No Labs: CBC, BMP 01/20/18 06:30 INR, PTT INR 1.18 (0.82-1.09) H 01/12/18 08:30 Assessment/Plan Microbiology 01/17/18 12:20 Pleural Fluid Gram Stain - Final 01/17/18 12:20 Pleural Fluid Anaerobic Culture - Final NO GROWTH OF AEROBIC ORGANISMS AFTER 48 HOURS INCUBATION NO ANAEROBES WERE ISOLATED 01/16/18 06:00 Sputum - Expectorated AFB Smear Concentration - Final 01/16/18 06:00 Sputum - Expectorated Direct Acid Fast Bacilli Smear - Final 01/17/18 21:30 Blood - Peripheral Venous Blood Culture - Preliminary NO GROWTH OBTAINED AFTER 48 HOURS, INCUBATION TO CONTINUE FOR 3 DAYS. 01/17/18 18:45 Blood - Peripheral Venous Blood Culture - Preliminary NO GROWTH OBTAINED AFTER 48 HOURS, INCUBATION TO CONTINUE FOR 3 DAYS. 01/17/18 12:20 Pleural Fluid MAGI Preparation - Preliminary 01/17/18 12:20 Pleural Fluid Fungal Culture - Preliminary 01/16/18 06:00 Sputum - Expectorated Mycobacterial Culture - Preliminary Laboratory Tests 01/12/18 01/12/18 01/12/18 13:55 13:55 13:55 WBC Plt Count Neutrophils % Lymphocytes % Monocytes % Basophils % BUN Creatinine AST Alkaline Phosphatase C-Reactive Protein Albumin Pleural Fluid Source Pleural Appearance Pleural RBC Pleural Neutrophils Pleural Total Protein Pleural LDH Pleural Glucose HCV Quantitation HIV 1&2 Ag/Ab, 4th Gen Non reactive HIV 1&2 Antibody Screen Preliminary positive HIV P24 Antigen Negative TB Test (QFT) Positive H 01/13/18 01/17/18 01/19/18 10:00 12:20 06:30 WBC Plt Count Neutrophils % Lymphocytes % Monocytes % Basophils % BUN 6 L Creatinine 0.5 L D AST 75 H D Alkaline Phosphatase 276 H C-Reactive Protein Albumin 1.6 L Pleural Fluid Source Pleural fluid Pleural Appearance Slightly cloudy Pleural RBC 4502 Pleural Neutrophils 94 Pleural Total Protein 5.049 Pleural LDH 1561.713 Pleural Glucose 98.424 HCV Quantitation [id number] HIV 1&2 Ag/Ab, 4th Gen HIV 1&2 Antibody Screen HIV P24 Antigen TB Test (QFT) 01/19/18 01/20/18 06:30 06:30 WBC 9.8 Plt Count 416 Neutrophils % 63.5 Lymphocytes % 21.3 Monocytes % 12.2 H Basophils % 1.2 BUN Creatinine AST Alkaline Phosphatase C-Reactive Protein 4.1 H Albumin Pleural Fluid Source Pleural Appearance Pleural RBC Pleural Neutrophils Pleural Total Protein Pleural LDH Pleural Glucose HCV Quantitation HIV 1&2 Ag/Ab, 4th Gen HIV 1&2 Antibody Screen HIV P24 Antigen TB Test (QFT) Assessment Empyema with wasting syndrome ? etiology Chronic hepatitis C Elevated Alk phos ? Hep C or ?? infiltrative liver disease Quant gold ( history of latent TB treatment) Plan Continue current antibiotic Obtain HIV PCR RNA to be sure no HIV Dariana NARANJO
[2018-01-20 08:40] LABS: ALBUMIN 1.7 g/dl (3.4-5.0); ALK PHOS 268 U/L (45-117); ANION GAP 10 (8-16); BILIRUBIN,TOTAL 0.5 mg/dL (0.2-1.0); BLOOD UREA NITROGEN 5 mg/dL (7-18); CALCIUM 7.8 mg/dL (8.5-10.1); CO2 26 mmol/L (21-32); CREATININE 0.4 mg/dL (0.7-1.3); GLUCOSE,RANDOM 121 mg/dL (74-106); SGOT/AST 80 U/L (15-37); SGPT/ALT 52 U/L (12-78); TOT PROT 7.1 g/dl (6.4-8.2)
[2018-01-20] MEDS ORDERED: PT OWN MED DRAWER 7, Y5N ONE ×7 (08:41→22:22)
--- NOTE | 2018-01-20 10:09 | PN ---
Physical Exam: SUBJECTIVE: Patient seen and examined. His pain is better today. He is expectorating brownish/yellow sputum OBJECTIVE: Vital Signs Period Temp Pulse Resp BP Sys/Jc Pulse Ox Last 24 Hr 97.4 F-101.2 F 84-120 18-20 118-155/68-90 96 PE Neuro: alert, awake, cn 2-12intact Pulm: R lobe diminished, decreased , + productive cough CV: s1 s2 rrr no mrg Abd: s nt nd +bs Ext: warm no le edema Laboratory Results - last 24 hr 01/19/18 01/19/18 01/19/18 06:30 06:30 11:56 WBC RBC Hgb Hct MCV MCH MCHC RDW Plt Count MPV Neutrophils % Lymphocytes % Monocytes % Eosinophils % Basophils % ESR 101 H Sodium Potassium Chloride Carbon Dioxide Anion Gap BUN Creatinine Creat Clearance w eGFR POC Glucometer 201 Random Glucose Calcium Total Bilirubin AST ALT Alkaline Phosphatase C-Reactive Protein 4.1 H Total Protein Albumin 01/20/18 01/20/18 06:30 06:30 WBC 9.8 RBC 3.44 L Hgb 10.2 L Hct 30.7 L MCV 89.2 MCH 29.6 MCHC 33.1 RDW 13.3 Plt Count 416 MPV 7.7 Neutrophils % 63.5 Lymphocytes % 21.3 Monocytes % 12.2 H Eosinophils % 1.8 Basophils % 1.2 ESR Sodium 135 L Potassium 4.3 Chloride 99 Carbon Dioxide 26 Anion Gap 10 BUN 5 L Creatinine 0.4 L Creat Clearance w eGFR > 60 POC Glucometer Random Glucose 121 H D Calcium 7.8 L Total Bilirubin 0.5 D AST 80 H ALT 52 Alkaline Phosphatase 268 H C-Reactive Protein Total Protein 7.1 Albumin 1.7 L 01/20/18 01/20/18 06:30 09:10 Tumor Marker AFP Pending HIV-1 RNA (PCR) Pending HIV-1 RNA (PCR) log10 Pending Active Medications Generic Name Dose Route Start Last Admin Trade Name Freq PRN Reason Stop Dose Admin Acetaminophen 650 mg 01/11/18 23:24 01/20/18 07:54 Tylenol - PO 650 mg Q6H PRN Administration fever or pain Albuterol/Ipratropium 1 amp 01/12/18 16:00 01/20/18 07:30 Duoneb - NEB 1 amp RQID MICHELLE Administration Glipizide 5 mg 01/18/18 07:00 01/20/18 06:21 Glucotrol - PO 5 mg BID@0700,1630 MICHELLE Administration Piperacillin Sod/Tazobactam 50 mls @ 100 mls/hr 01/18/18 16:15 01/20/18 08:52 Sod 3.375 gm/ Dextrose IVPB 100 mls/hr Q6H-IV MICHELLE Administration Insulin Aspart 1 vial 01/12/18 13:18 01/20/18 06:21 Novolog Vial Sliding Scale - SQ Not Given ACHS MICHELLE Protocol Oxycodone HCl 5 mg 01/19/18 10:24 01/19/18 20:18 Roxicodone - PO 5 mg Q6H PRN Administration PAIN LEVEL 4 - 6 Assessment: 52 year old male with PMH significant for NIDDM. Admitted for multi- lobar pneumonia. Plan: 1. Sepsis due to Strep pneumoniae multilobar PNA - OR Monday with CT surgery for thoracotomy/VATS/bronch - s/p thoracentesis 01/17 - Pleural fluid suggestive exudatative - Serology/cx pending - Ceftriaxone 2gm daily (day 5) - Send sputum cx 2. r/o TB, hx of TB - Treated for latent TB, Nov- February 2013 x2 months inh/rifampin - AFB x3 sent 3. HIV - HIV RNA sent for further confirmation - Non reactive 4. DM II, uncontrolled - Gipizide 5mg BIDAC - ISS, BGM ACHS 5. Hep C - Outpt followupl, however elevated lfts/alk phos ?TB to liver 6. DVT prophylaxis - Subq heparin Visit type - Emergency Visit Emergency Visit: Yes ED Registration Date: 01/11/18 Care time: The patient presented to the Emergency Department on the above date and was hospitalized for further evaluation of their emergent condition. - New Patient This patient is new to me today: No - Critical Care Critical Care patient: No
--- NOTE | 2018-01-20 11:23 | CONSULT ---
Consult Consult Specialty:: Thoracic Surgery Referred by:: Dr. Ellsworth Reason for Consultation:: Loculated Effusion - History of Present Illness Chief Complaint: Dyspnea and fever History of Present Illness: 52M diabetic male former smoker with dyspnea x 4 weeks with fevers. Now with loculated effusion. ?h/o tb treatment. No weight loss. No hemoptysis. 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 No: Asthma, COPD, O2 Dependent, Previously Intubated Gastrointestinal: No: Ascites Hepatobiliary: No: Cirrhosis Renal/: No: Renal Failure Psych: No: Addictions Endocrine: Yes: Diabetes Mellitus - Past Surgical History Past Surgical History: Yes: None - Alcohol/Substance Use Hx Alcohol Use: No History of Substance Use: reports: None - Smoking History Smoking history: Former smoker Have you smoked in the past 12 months: No If you are a former smoker, when did you quit?: 5yrs - Social History Usual Living Arrangement: With Spouse ADL: Independent Occupation: [employer] History of Recent Travel: No Home Medications - Allergies Allergies/Adverse Reactions: Allergies Allergy/AdvReac Type Severity Reaction Status Date / Time No Known Allergies Allergy Verified 01/11/18 14:37 - Home Medications Home Medications: Ambulatory Orders No Home Medications 0 dose .ROUTE UTDICT 06/11/14 Amoxicillin/Potassium Clav [Augmentin 875-125 Tablet] 1 each PO BID #8 tablet Azithromycin 250 mg PO DAILY #4 tablet 12/31/17 Metformin HCl 500 mg PO BID #30 tablet 12/31/17 metFORMIN HCL [Glucophage -] 500 mg PO DAILY #30 tablet 12/31/17 Family Disease History - Family Disease History Other Family History: No family h/o DM Review of Systems - Review of Systems Constitutional: reports: Fever Eyes: reports: No Symptoms HENT: reports: No Symptoms Respiratory: reports: Cough Gastrointestinal: reports: No Symptoms Genitourinary: reports: No Symptoms Breasts: reports: No Symptoms Reported Musculoskeletal: reports: Back Pain Integumentary: reports: No Symptoms Neurological: reports: No Symptoms Endocrine: reports: No Symptoms Hematology/Lymphatic: reports: No Symptoms Psychiatric: reports: No Symptoms Physical Exam Vital Signs: Vital Signs Temperature 98.6 F 01/20/18 08:55 Pulse Rate 120 H 01/20/18 08:55 Respiratory Rate 20 01/20/18 08:55 Blood Pressure 118/76 01/20/18 08:55 O2 Sat by Pulse Oximetry (%) 96 01/19/18 21:00 Constitutional: Yes: Thin, Other Eyes: Yes: WNL HENT: Yes: WNL Neck: Yes: Supple Cardiovascular: Yes: Regular Rate and Rhythm Respiratory: Yes: Diminished (right side) Gastrointestinal: Yes: WNL Extremities: Yes: WNL Labs: CBC, BMP 01/20/18 06:30 01/20/18 06:30 Imaging - Results Other: Image Reviewed (Loculated effusion right. CXR tomorrow.) Problem List - Problems (1) Pneumonia Code(s): J18.9 - PNEUMONIA, UNSPECIFIED ORGANISM Qualifiers: Pneumonia type: due to Pneumococcus Laterality: right Lung location: lower lobe of lung Qualified Code(s): J13 - Pneumonia due to Streptococcus pneumoniae (2) Pleural effusion associated with pulmonary infection Code(s): J18.9 - PNEUMONIA, UNSPECIFIED ORGANISM; J91.8 - PLEURAL EFFUSION IN OTHER CONDITIONS CLASSIFIED ELSEWHERE Assessment/Plan Loculated effusion with PNA likely, for VATS Monday if cytology negative. -Consent obtained and risks benefits alternatives explained and all questions answered for RVATs bronch, decort, possible thor -F/U cytology Monday -Does not appear to be TB related but rather PNA -ICU after surgery, NPO p MN Monday.
[2018-01-20] MEDS ORDERED: INSULIN (NOVOLOG) ASPART 100 UNITS/ML 10ML VIAL ONE (21:56)
[2018-01-21] MEDS: ACETAMINOPHEN 325 MG TABLET (FP) PO PRN ×2 (01:55→10:25)
[2018-01-21] MEDS ORDERED: PT OWN MED DRAWER 7, Y5N ONE ×3 (01:58→14:53)
[2018-01-21] MEDS: PIPERACILLIN/TAZOB 3.375 GM 3.375 GM in DEXTROSE 5%-WATER - 50 ML IVPB SCH ×4 (02:04→22:06)
[2018-01-21] MEDS: INSULIN SLIDING SCALE (NOVOLOG) 1 VIAL SQ SCH ×4 (06:42→22:06)
[2018-01-21] MEDS: glipiZIDE 5 MG TABLET (FP) PO SCH ×2 (06:42→17:13)
[2018-01-21 07:03] LABS: BASO % 0.6 % (0-2.0); EOS % 1.2 % (0-4.5); HEMATOCRIT 33.1 % (35.4-49); HEMOGLOBIN 10.9 GM/dL (11.7-16.9); LYMPH % 21.4 % (8-40); MCH 29.4 pg (25.7-33.7); MEAN PLT VOLUME 7.4 fl (7.5-11.1); MONO % 9.9 % (3.8-10.2); NEUT % 66.9 % (42.8-82.8); PLATELET COUNT 478 K/MM3 (134-434); RBC 3.72 M/mm3 (4.00-5.60); RDW 13.7 % (11.9-15.9); WHITE BLOOD COUNT 10.6 K/mm3 (4.0-10.0)
--- NOTE | 2018-01-21 07:16 | PN ---
Progress Note, Physician Chief Complaint: ID Discussed with PCP and thoracic surgery yesterday regarding proposed surgery Zosyn Day 3 Rx No complaints today - Current Medication List Current Medications: Active Medications Acetaminophen (Tylenol -) 650 mg PO Q6H PRN PRN Reason: fever or pain Last Admin: 01/21/18 01:55 Dose: 650 mg Albuterol/Ipratropium (Duoneb -) 1 amp NEB RQID [facility] Last Admin: 01/20/18 21:20 Dose: 1 amp Glipizide (Glucotrol -) 5 mg PO BID@0700,1630 [facility] Last Admin: 01/21/18 06:42 Dose: 5 mg Piperacillin Sod/Tazobactam (Sod 3.375 gm/ Dextrose) 50 mls @ 100 mls/hr IVPB Q6H-IV [facility] Last Admin: 01/21/18 02:04 Dose: 100 mls/hr Insulin Aspart (Novolog Vial Sliding Scale -) 1 vial SQ ACHS MICHELLE PRN Reason: Protocol Last Admin: 01/21/18 06:42 Dose: 2 units Oxycodone HCl (Roxicodone -) 5 mg PO Q6H PRN PRN Reason: PAIN LEVEL 4 - 6 Last Admin: 01/19/18 20:18 Dose: 5 mg - Objective Vital Signs: Vital Signs Temperature 97.8 F 01/21/18 06:00 Pulse Rate 80 01/21/18 06:00 Respiratory Rate 20 01/21/18 06:00 Blood Pressure 121/75 01/21/18 06:00 O2 Sat by Pulse Oximetry (%) 92 L 01/20/18 21:00 Cardiovascular: Yes: S1, S2 Respiratory: Yes: WNL, Regular, CTA Bilaterally, Diminished Gastrointestinal: Yes: Soft. No: Tenderness Labs: INR, PTT INR 1.18 (0.82-1.09) H 01/12/18 08:30 Assessment/Plan Microbiology 01/17/18 20:45 Urine - Urine Clean Catch Urine Culture - Final NO GROWTH OBTAINED 01/17/18 12:20 Pleural Fluid Gram Stain - Final 01/17/18 12:20 Pleural Fluid Anaerobic Culture - Final NO GROWTH OF AEROBIC ORGANISMS AFTER 48 HOURS INCUBATION NO ANAEROBES WERE ISOLATED 01/17/18 21:30 Blood - Peripheral Venous Blood Culture - Preliminary NO GROWTH OBTAINED AFTER 72 HOURS, INCUBATION TO CONTINUE FOR 2 DAYS. 01/17/18 18:45 Blood - Peripheral Venous Blood Culture - Preliminary NO GROWTH OBTAINED AFTER 72 HOURS, INCUBATION TO CONTINUE FOR 2 DAYS. Laboratory Tests 01/12/18 01/20/18 01/20/18 13:55 06:30 06:30 WBC 9.8 Hgb 10.2 L Plt Count 416 BUN Creatinine AST 80 H ALT 52 Alkaline Phosphatase 268 H HIV-1 RNA (PCR) TB Test (QFT) Positive H 01/20/18 01/21/18 01/21/18 09:10 06:00 06:00 WBC Pending Hgb Pending Plt Count Pending BUN Pending Creatinine Pending AST ALT Alkaline Phosphatase HIV-1 RNA (PCR) Pending TB Test (QFT) Assessment Loculated pleural effusion ? etiology History of latent TB Cachexia previously described Culture no growth Plan Surgery tomorrow VAT Continue antibiotics HIV PCR RNA
[2018-01-21 07:18] LABS: ANION GAP 11 (8-16); BLOOD UREA NITROGEN 6 mg/dL (7-18); CALCIUM 8.5 mg/dL (8.5-10.1); CHLORIDE 101 mmol/L (98-107); CO2 25 mmol/L (21-32); CREATININE 0.5 mg/dL (0.7-1.3); GLUCOSE,RANDOM 162 mg/dL (74-106); POTASSIUM 4.6 mmol/L (3.5-5.1); SODIUM 137 mmol/L (136-145)
[2018-01-21 07:19] LABS: ALBUMIN 1.9 g/dl (3.4-5.0); BILIRUBIN,DIRECT 0.3 mg/dL (0.0-0.2); BILIRUBIN,TOTAL 0.4 mg/dL (0.2-1.0)
[2018-01-21] MEDS: ALBUTEROL SO4 2.5/IPRATROPIUM 0.5 INH SOL 3 ML VIAL.NEB. NEB SCH ×2 (07:30→11:03)
--- NOTE | 2018-01-21 11:02 | PN ---
Progress Note (short form) - Note Progress Note: PULMONARY AWAKE/ALERT ANTICIPATING VATS FOR TOMORROW NO OVERALL CHANGE IN EXAM ALL LABS REVIEWED VATS PENDING FOR TOMORROW CONTINUE CURRENT TREATMENT PLAN Leyla THOMAS MD
[2018-01-21] MEDS ORDERED: INSULIN (NOVOLOG) ASPART 100 UNITS/ML 10ML VIAL ONE ×3 (12:01→21:32)
--- NOTE | 2018-01-21 13:41 | PN ---
Physical Exam: SUBJECTIVE: Patient seen and examined. No change. R upper back pain improved OBJECTIVE: Vital Signs Period Temp Pulse Resp BP Sys/Jc Pulse Ox Last 24 Hr 97.8 F-98.8 F 80-112 20-20 121-148/70-91 92 PE Neuro: alert, awake, cn 2-12intact Pulm: R lobe diminished, decreased CV: s1 s2 rrr no mrg Abd: s nt nd +bs Ext: warm no le edema Laboratory Results - last 24 hr 01/21/18 01/21/18 01/21/18 06:00 06:00 06:00 WBC 10.6 H RBC 3.72 L Hgb 10.9 L Hct 33.1 L MCV 89.0 MCH 29.4 MCHC 33.0 RDW 13.7 Plt Count 478 H MPV 7.4 L Neutrophils % 66.9 Lymphocytes % 21.4 Monocytes % 9.9 Eosinophils % 1.2 Basophils % 0.6 PTT (Actin FS) 39.8 H Sodium 137 Potassium 4.6 Chloride 101 Carbon Dioxide 25 Anion Gap 11 BUN 6 L Creatinine 0.5 L D POC Glucometer Random Glucose 162 H D Calcium 8.5 Total Bilirubin Direct Bilirubin AST ALT Alkaline Phosphatase Total Protein Albumin Tumor Marker AFP 01/21/18 01/21/18 01/21/18 06:00 06:29 12:03 WBC RBC Hgb Hct MCV MCH MCHC RDW Plt Count MPV Neutrophils % Lymphocytes % Monocytes % Eosinophils % Basophils % PTT (Actin FS) Sodium Potassium Chloride Carbon Dioxide Anion Gap BUN Creatinine POC Glucometer 164 225 Random Glucose Calcium Total Bilirubin 0.4 Direct Bilirubin 0.3 H AST 81 H ALT 62 Alkaline Phosphatase 308 H Total Protein 8.0 Albumin 1.9 L Tumor Marker AFP 01/19/18 01/20/18 01/20/18 06:30 06:30 09:10 ESR 101 H Tumor Marker AFP 15.9 H HIV-1 RNA (PCR) Pending HIV-1 RNA (PCR) log10 Pending Active Medications Generic Name Dose Route Start Last Admin Trade Name Freq PRN Reason Stop Dose Admin Acetaminophen 650 mg 01/11/18 23:24 01/21/18 10:25 Tylenol - PO 650 mg Q6H PRN Administration fever or pain Albuterol/Ipratropium 1 amp 01/12/18 16:00 01/21/18 11:03 Duoneb - NEB 1 amp RQID MICHELLE Administration Glipizide 5 mg 01/18/18 07:00 01/21/18 06:42 Glucotrol - PO 5 mg BID@0700,1630 MICHELLE Administration Piperacillin Sod/Tazobactam 50 mls @ 100 mls/hr 01/18/18 16:15 01/21/18 09:28 Sod 3.375 gm/ Dextrose IVPB 100 mls/hr Q6H-IV MICHELLE Administration Insulin Aspart 1 vial 01/12/18 13:18 01/21/18 12:06 Novolog Vial Sliding Scale - SQ 4 units ACHS MICHELLE Administration Protocol Oxycodone HCl 5 mg 01/19/18 10:24 01/19/18 20:18 Roxicodone - PO 5 mg Q6H PRN Administration PAIN LEVEL 4 - 6 Imaging: - Completed 6 days Assessment: 52 year old male with PMH significant for DM II. Admitted for multi- lobar pneumonia. Plan: 1. Sepsis due to Strep pneumoniae multilobar PNA - OR tomorrow with CT surgery for decort/VATS/bronch possible thoracotomy - s/p thoracentesis 01/17; exudative effusion - Cytology pending - Started zosyn 01/20 2. r/o TB, hx of TB - Treated for latent TB, Nov- February 2013 x2 months inh/rifampin - AFB x3 sent 3. r/o HIV - HIV RNA pending 4. DM II, uncontrolled - Hold tomorrow glipizide 5mg BIDAC - ISS, BGM ACHS 5. Hep C - Outpt followup, however elevated lfts/alk phos ?TB to liver Visit type - Emergency Visit Emergency Visit: Yes ED Registration Date: 01/11/18 Care time: The patient presented to the Emergency Department on the above date and was hospitalized for further evaluation of their emergent condition. - New Patient This patient is new to me today: No - Critical Care Critical Care patient: No
[2018-01-22] MEDS: PIPERACILLIN/TAZOB 3.375 GM 3.375 GM in DEXTROSE 5%-WATER - 50 ML IVPB SCH ×3 (03:45→22:00)
[2018-01-22] MEDS: INSULIN SLIDING SCALE (NOVOLOG) 1 VIAL SQ SCH ×3 (06:22→22:34)
[2018-01-22 08:44] LABS: HEMATOCRIT 32.6 % (35.4-49); HEMOGLOBIN 10.8 GM/dL (11.7-16.9); MCH 29.3 pg (25.7-33.7); MCHC 33.1 g/dl (32.0-35.9); MEAN CELL VOLUME 88.6 fl (80-96); MEAN PLT VOLUME 7.4 fl (7.5-11.1); PLATELET COUNT 557 K/MM3 (134-434); RBC 3.68 M/mm3 (4.00-5.60); RDW 13.2 % (11.9-15.9); WHITE BLOOD COUNT 12.1 K/mm3 (4.0-10.0)
[2018-01-22 08:53] LABS: ANION GAP 10 (8-16); BLOOD UREA NITROGEN 9 mg/dL (7-18); CALCIUM 8.5 mg/dL (8.5-10.1); CHLORIDE 100 mmol/L (98-107); CO2 26 mmol/L (21-32); CREATININE 0.5 mg/dL (0.7-1.3); GLUCOSE,RANDOM 159 mg/dL (74-106); POTASSIUM 4.4 mmol/L (3.5-5.1); SGOT/AST 72 U/L (15-37); SGPT/ALT 61 U/L (12-78); SODIUM 136 mmol/L (136-145)
[2018-01-22 08:54] LABS: ALK PHOS 327 U/L (45-117); BILIRUBIN,TOTAL 0.5 mg/dL (0.2-1.0); TOT PROT 8.4 g/dl (6.4-8.2)
[2018-01-22] MEDS ORDERED: PT OWN MED DRAWER 7, Y5N ONE (09:16)
--- NOTE | 2018-01-22 10:01 | PN ---
Progress Note (short form) - Note Progress Note: SUBJECTIVE: The patient was seen and examined at the bedside, he has complaints of right upper back pain For VATS today Current Medications Generic Name Dose Route Start Last Admin Trade Name Sophie PRN Reason Stop Dose Admin Acetaminophen 650 mg 01/11/18 23:24 01/21/18 10:25 Tylenol - PO 650 mg Q6H PRN Administration fever or pain Glipizide 5 mg 01/18/18 07:00 01/21/18 17:13 Glucotrol - PO 5 mg BID@0700,1630 MICHELLE Administration Piperacillin Sod/Tazobactam 50 mls @ 100 mls/hr 01/18/18 16:15 01/22/18 09:19 Sod 3.375 gm/ Dextrose IVPB 100 mls/hr Q6H-IV MICHELLE Administration Insulin Aspart 1 vial 01/12/18 13:18 01/22/18 06:22 Novolog Vial Sliding Scale - SQ Not Given ACHS MICHELLE Protocol Oxycodone HCl 5 mg 01/19/18 10:24 01/19/18 20:18 Roxicodone - PO 5 mg Q6H PRN Administration PAIN LEVEL 4 - 6 OBJECTIVE: Vital Signs Period Temp Pulse Resp BP Sys/Jc Pulse Ox Last 24 Hr 98.3 F-99.0 F 84-93 18-20 119-145/71-83 99 Physical Exam: General: NAD, A&Ox3 Lungs: Diminished breath sounds on the right Heart: RRR, S1S2 Abd: Soft, non-tender, non-distended. Normoactive bowel sounds Ext: Warm, well-perfused. 2+ DP/PT bilaterally Neuro: CN 2-12 intact CBCD WBC 12.1 K/mm3 (4.0-10.0) H 01/22/18 08:05 RBC 3.68 M/mm3 (4.00-5.60) L 01/22/18 08:05 Hgb 10.8 GM/dL (11.7-16.9) L 01/22/18 08:05 Hct 32.6 % (35.4-49) L 01/22/18 08:05 MCV 88.6 fl (80-96) 01/22/18 08:05 MCHC 33.1 g/dl (32.0-35.9) 01/22/18 08:05 RDW 13.2 % (11.9-15.9) 01/22/18 08:05 Plt Count 557 K/MM3 (134-434) H 01/22/18 08:05 MPV 7.4 fl (7.5-11.1) L 01/22/18 08:05 CMP Sodium 136 mmol/L (136-145) 01/22/18 08:05 Potassium 4.4 mmol/L (3.5-5.1) 01/22/18 08:05 Chloride 100 mmol/L (98-107) 01/22/18 08:05 Carbon Dioxide 26 mmol/L (21-32) 01/22/18 08:05 Anion Gap 10 (8-16) 01/22/18 08:05 BUN 9 mg/dL (7-18) D 01/22/18 08:05 Creatinine 0.5 mg/dL (0.7-1.3) L 01/22/18 08:05 Creat Clearance w eGFR > 60 (>60) 01/22/18 08:05 Random Glucose 159 mg/dL (74-106) H 01/22/18 08:05 Calcium 8.5 mg/dL (8.5-10.1) 01/22/18 08:05 Total Bilirubin 0.5 mg/dL (0.2-1.0) D 01/22/18 08:05 AST 72 U/L (15-37) H 01/22/18 08:05 ALT 61 U/L (12-78) 01/22/18 08:05 Alkaline Phosphatase 327 U/L (45-117) H 01/22/18 08:05 Total Protein 8.4 g/dl (6.4-8.2) H 01/22/18 08:05 Albumin 2.0 g/dl (3.4-5.0) L 01/22/18 08:05 CARDIAC ENZYMES Creatine Kinase 25 IU/L (39-308) L 01/11/18 17:07 Troponin I < 0.02 ng/ml (0.00-0.05) 01/11/18 17:07 Microbiology 01/17/18 21:30 Blood - Peripheral Venous Blood Culture - Preliminary NO GROWTH OBTAINED AFTER 96 HOURS, INCUBATION TO CONTINUE FOR 1 DAYS. 01/17/18 18:45 Blood - Peripheral Venous Blood Culture - Preliminary NO GROWTH OBTAINED AFTER 96 HOURS, INCUBATION TO CONTINUE FOR 1 DAYS. 01/17/18 12:20 Pleural Fluid Gram Stain - Final 01/17/18 12:20 Pleural Fluid Body Fluid Culture - Final NO GROWTH OF AEROBIC ORGANISMS AFTER 48 HOURS INCUBATION 01/17/18 12:20 Pleural Fluid Anaerobic Culture - Final NO ANAEROBES WERE ISOLATED 01/16/18 06:00 Sputum - Expectorated AFB Smear Concentration - Final 01/16/18 06:00 Sputum - Expectorated Direct Acid Fast Bacilli Smear - Final 01/16/18 06:00 Sputum - Expectorated Mycobacterial Culture - Preliminary 01/17/18 20:45 Urine - Urine Clean Catch Urine Culture - Final NO GROWTH OBTAINED 01/13/18 11:00 Sputum - Expectorated AFB Smear Concentration - Final 01/13/18 11:00 Sputum - Expectorated Direct Acid Fast Bacilli Smear - Final 01/13/18 11:00 Sputum - Expectorated Mycobacterial Culture - Preliminary 01/15/18 17:00 Sputum - Aerosol Induced AFB Smear Concentration - Final 01/15/18 17:00 Sputum - Aerosol Induced Direct Acid Fast Bacilli Smear - Final 01/15/18 17:00 Sputum - Aerosol Induced Mycobacterial Culture - Preliminary 01/17/18 12:20 Pleural Fluid MAGI Preparation - Preliminary 01/17/18 12:20 Pleural Fluid Fungal Culture - Preliminary 01/11/18 17:30 Blood - Peripheral Venous Blood Culture - Final NO GROWTH AFTER 5 DAYS INCUBATION 01/11/18 17:20 Blood - Peripheral Venous Blood Culture - Final NO GROWTH AFTER 5 DAYS INCUBATION 01/11/18 14:45 Nasopharyngeal Swab Influenza Types A,B Antigen (VALARIE) - Final 01/11/18 14:45 Nasopharyngeal Swab - Final 01/13/18 13:37 Sputum - Expectorated Gram Stain - Final 01/13/18 13:37 Sputum - Expectorated Sputum Culture - Final Yeast Like Organism 01/11/18 17:44 Sputum - Expectorated Gram Stain - Final 01/11/18 17:44 Sputum - Expectorated Sputum Culture - Final NORMAL RESPIRATORY ANNA 01/12/18 05:03 Urine - Urine Clean Catch Urine Culture - Final NO GROWTH OBTAINED 01/12/18 18:00 Urine For Antigen Detection Legionella Antigen - Final 01/12/18 18:00 Urine For Antigen Detection Streptococcus pneumoniae Antigen (M - Final 01/12/18 05:03 Urine For Antigen Detection Legionella Antigen - Final 01/12/18 05:03 Urine For Antigen Detection Streptococcus pneumoniae Antigen (M - Final Assessment: This is a 52 year old male with PMHx of DM, who presented to the ED with cough, shortness of breath, chest pain, night sweats, weight loss Plan: 1) Sepsis 2/2 pneumococcal pneumonia with possible empyema - OR today with CT surgery for decort/VATS/bronch possible thoracotomy - Exudative effusion s/p thoracentesis on 01/17 - Continue Zoisyn - Appreciate pulmonary consult - Appreciate ID consult - Appreciate CT surgery consult 2) Hx of latent Tb - Quant gold positive, treated in 2012 with INH/Rifapentine - AFB x3 negative 3) Chronic HCV - Outpatient follow-up 4) R/p HIV - Prelim positive - F/u HIV PCR RNA 5) DM - BGM ACHS - ISS ACHS 6) F/E/N: - Monitor electrolytes - NPO for procedure today 7) Prophylaxis: - Hold all chemical DVT prophylaxis for procedure today 8) Dispo: - Requires continued inpatient care CODE STATUS: FULL CODE Visit type - Emergency Visit Emergency Visit: Yes ED Registration Date: 01/11/18 Care time: The patient presented to the Emergency Department on the above date and was hospitalized for further evaluation of their emergent condition. - New Patient This patient is new to me today: Yes Date on this admission: 01/22/18 - Critical Care Critical Care patient: No
--- NOTE | 2018-01-22 10:14 | PN ---
Progress Note (short form) - Note Progress Note: PULMONARY AWAKE/ALERT ANTICIPATING VATS FOR TODAY NO OVERALL CHANGE IN EXAM ALL LABS REVIEWED VATS PENDING CONTINUE CURRENT TREATMENT PLAN Leyla THOMAS MD
--- NOTE | 2018-01-22 10:58 | PN ---
Progress Note (short form) - Note Progress Note: No acute events overnight. No hemoptysis recorded. CXR: Mild improving right effusion / fluid in the fissure Intake & Output 01/19/18 01/20/18 01/21/18 01/22/18 23:59 23:59 23:59 23:59 Intake Total 920 500 200 Balance 920 500 200 Last Vital Signs Temp Pulse Resp BP Pulse Ox 98.5 F 84 20 122/72 99 01/22/18 06:00 01/22/18 06:00 01/22/18 06:00 01/22/18 06:00 01/21/18 21:00 Active Medications Acetaminophen (Tylenol -) 650 mg PO Q6H PRN PRN Reason: fever or pain Last Admin: 01/21/18 10:25 Dose: 650 mg Glipizide (Glucotrol -) 5 mg PO BID@0700,1630 MICHELLE Last Admin: 01/21/18 17:13 Dose: 5 mg Piperacillin Sod/Tazobactam (Sod 3.375 gm/ Dextrose) 50 mls @ 100 mls/hr IVPB Q6H-IV MICHELLE Last Admin: 01/22/18 09:19 Dose: 100 mls/hr Insulin Aspart (Novolog Vial Sliding Scale -) 1 vial SQ ACHS MICHELLE PRN Reason: Protocol Last Admin: 01/22/18 06:22 Dose: Not Given Constitutional: Yes: NAD, Cachectic Eyes: Yes: EOM Intact HENT: Yes: Normocephalic Neck: Yes: Trachea Midline Cardiovascular: Yes: S1, S2 Respiratory: Yes: Diminished, Rhonchi Gastrointestinal: Yes: Normal Bowel Sounds, Abdomen, Obese Edema: No Neurological: Yes: Alert Labs: Laboratory Results - last 24 hr 01/21/18 01/21/18 01/21/18 12:03 17:11 22:05 WBC RBC Hgb Hct MCV MCH MCHC RDW Plt Count MPV Sodium Potassium Chloride Carbon Dioxide Anion Gap BUN Creatinine Creat Clearance w eGFR POC Glucometer 225 295 170 Random Glucose Calcium Total Bilirubin AST ALT Alkaline Phosphatase Total Protein Albumin 01/22/18 01/22/18 01/22/18 06:21 08:05 08:05 WBC 12.1 H RBC 3.68 L Hgb 10.8 L Hct 32.6 L MCV 88.6 MCH 29.3 MCHC 33.1 RDW 13.2 Plt Count 557 H MPV 7.4 L Sodium 136 Potassium 4.4 Chloride 100 Carbon Dioxide 26 Anion Gap 10 BUN 9 D Creatinine 0.5 L Creat Clearance w eGFR > 60 POC Glucometer 179 Random Glucose 159 H Calcium 8.5 Total Bilirubin 0.5 D AST 72 H ALT 61 Alkaline Phosphatase 327 H Total Protein 8.4 H Albumin 2.0 L Assessment/Plan CACHEXIA/SPUTUM/FEVER/SOB/PLEURITIC RIGHT POSTERIOR CHEST PAIN/BIBASILAR CONSOLIDATIONS ON CT CHEST DISTANT UNCLEAR HISTORY OF TREATMENT FOR TB DISEASE (?+PPD) WITH 9 PILLS ONCE A WEEK FOR 9 MONTHS RECENT DUAL ANTIBIOTIC TREATMENT OUTPATIENT FOR PNEUMONIA WITHOUT IMPROVEMENT (LAST WEEK) CALLED PATHOLOGY: CYTOLOGY PENDING ISOLATION O2 NEEDED ABX PER ID SCHEDULED FOR VATS TODAY AT 2PM IF CYTOLOGY (- DR APPIAH
--- NOTE | 2018-01-22 13:08 | PN ---
Progress Note (short form) - Note Progress Note: ID Still receiving Zosyn Selected Entries 01/22/18 08:10 Temperature 98.6 F Pulse Rate 85 Respiratory 18 Rate Blood Pressure 127/76 Microbiology 01/17/18 20:45 Urine - Urine Clean Catch Urine Culture - Final NO GROWTH OBTAINED 01/21/18 04:00 Sputum - Expectorated Sputum Culture - Preliminary Yeast Like Organism 01/17/18 21:30 Blood - Peripheral Venous Blood Culture - Preliminary NO GROWTH OBTAINED AFTER 96 HOURS, INCUBATION TO CONTINUE FOR 1 DAYS. 01/17/18 18:45 Blood - Peripheral Venous Blood Culture - Preliminary NO GROWTH OBTAINED AFTER 96 HOURS, INCUBATION TO CONTINUE FOR 1 DAYS. Laboratory Tests 01/19/18 01/20/18 01/22/18 06:30 09:10 08:05 WBC 12.1 H Hgb 10.8 L Plt Count 557 H ESR 101 H HIV-1 RNA (PCR) Pending Assessment Right pleural effusion with wasting syndrome Plan VAT Today with cultures Dariana NARANJO
[2018-01-22] MEDS ORDERED: MIDAZOLAM HCL 2 MG/2 ML SINGLE DOSE VIAL ONE (14:08)
[2018-01-22] MEDS ORDERED: fentaNYL CITRATE 250 MCG/5 ML VIAL ONE (14:30)
[2018-01-22] MEDS ORDERED: PROPOFOL 20 ML ONE (14:31)
[2018-01-22] MEDS ORDERED: ROCURONIUM BROMIDE 50 MG/5 ML VIAL ONE (14:31)
[2018-01-22] MEDS ORDERED: LIDOCAINE HCL 1%, 10 MG/ML (20ML VIAL) ONE (14:32)
[2018-01-22] MEDS ORDERED: BUPIVACAINE HCL/PF 0.5% (5MG/ML) 10 ML VIAL ONE (14:33)
[2018-01-22] MEDS ORDERED: DEXAMETHASONE SOD PHOSPHATE 4 MG/1 ML VIAL ONE (14:41)
[2018-01-22] MEDS ORDERED: ceFAZolin SODIUM 1 GM VIAL ONE (14:47)
[2018-01-22] MEDS ORDERED: LIDOCAINE 1%/EPI 1:100000 (20 ML MULTI DOSE VIAL) ONE (14:49)
[2018-01-22] MEDS ORDERED: ceFAZolin SODIUM 1 GM VIAL IVPB ONE (14:49)
[2018-01-22] MEDS ORDERED: BUPIVACAINE HCL/PF 0.25% (2.5MG/ML) 10 ML VIAL ONE (14:50)
[2018-01-22] MEDS ORDERED: PHENYLEPHRINE HCL 10 MG/1 ML SINGLE DOSE VIAL ONE (15:02)
--- NOTE | 2018-01-22 16:11 | OP ---
Operative Note - Note: Operative Date: 01/22/18 Pre-Operative Diagnosis: Empyema Operation: Bronchoscopy, right vats, pneumolysis, partial decortication, drainage of empyema Findings: fibrinous exudate throughout with inflamed pleura and RLL pneumonia, adhesions of RLL and RML to diaphragm; lung expanded well after pneumolysis and partial decortication of RLL. Post-Operative Diagnosis: Same as Pre-op Surgeon: Soham Blakely Developer Architect: Vielka Nieto Anesthesiologist/EXTRUDER OPERATOR MULTIPLE: Dax Aaron Anesthesia: General Specimens Removed: BAL, pleural fluid, pleural contents, pleural bx Estimated Blood Loss (mls): 50 Drains & Tubes with Location: right chest tube Operative Report Dictated: Yes
[2018-01-22] MEDS ORDERED: NEOSTIGMINE METHYLSULFATE 0.5 MG/ML - 10 ML MDV ONE (16:13)
[2018-01-22] MEDS ORDERED: GLYCOPYRROLATE 0.2 MG/1 ML VIAL ONE ×2 (16:13)
[2018-01-22] MEDS ORDERED: ONDANSETRON 4 MG/2 ML VIAL IVPUSH PRN (16:34)
[2018-01-22] MEDS ORDERED: oxyCODONE HCL 5 MG TABLET PO PRN (16:34)
[2018-01-22] MEDS ORDERED: PROMETHAZINE HCL 25 MG/1 ML VIAL IVPUSH PRN (16:34)
[2018-01-22] MEDS ORDERED: BUPIVACAINE HCL/PF 0.25% (2.5MG/ML) 10 ML VIAL IM ONE (16:36)
[2018-01-22] MEDS ORDERED: LIDOCAINE 1%/EPI 1:100000 (20 ML MULTI DOSE VIAL) INF ONE (16:37)
[2018-01-22] MEDS ORDERED: LACTATED RINGERS SOLUTION 1,000 ML IV SCH (16:45)
[2018-01-22] MEDS ORDERED: DEXTROSE 5%-0.45% SALINE 1,000 ML IV SCH (16:45)
[2018-01-22] MEDS ORDERED: ACETAMINOPHEN 325 MG TABLET (FP) PO PRN ×2 (17:00→17:10)
--- NOTE | 2018-01-22 17:52 | OPR ---
Patient Name: Juan Ramon Hoang MR#: [id number] Procedure Date: 01/22/18 Preoperative Diagnosis: Right empyema Postoperative Diagnosis: Same Procedure: Flexible bronchoscopy, right thoracoscopy, pneumolysis, partial decortication, drainage of effusion Indication: as above Surgeon(s): Dr. Soham Blakely Occ Med Physician: Vielka Nieto Anesthesia: General Endotracheal Wound Classification: Clean Antibiotic Prophylaxis: n/a Findings: Bronchoscopy with purulent secretions in RLL and RML; small amounts of fluid with significant fibrinous exudate near the posterior lower lobe, fissure, and posterior to upper lobe, minimal peel necessitating decortication; consolidated right lower lobe; Lung expanded well after procedure on VATS; Completion bronchoscopy with pus in RML that was evacuated. Specimens Sent: BAL cultures; pleural fluid cultures; pleural tissue for culture and pathology. Complications: none Drains / Tubes / Catheters: 1 right chest tubes Hardware / Implants: n/a Blood / Fluid Losses: 50cc Blood / Fluids Administered: per anesthesia Post-Operative Condition: stable, extubated to PACU Indications: This patient is a 52 year-old male former smoker who presented with fever and chest pain and was found to have a loculated effusion. He was referred by Dr. Ellsworth for VATS. He was explained the risks, benefits, and alternatives of a bronchoscopy, vats, and thoracoscopy, and he agreed and understood. Details of Procedure: The patient was taken into the operating room and placed supine on the table. He was monitored with pulse oximetry and blood pressure monitoring, including an arterial line. Sequential compression devices were placed. A kohler catheter was placed. He was given sedation and intubated with a single-lumen tube. I performed a bronchoscopy. There was no blood in the airway. We sent cultures. We then placed a yair. He was then positioned in the left lateral decubitus postion and the position of the tube was reconfirmed. His chest was prepared and draped in sterile fashion. We made 2 ports after giving local anesthesia. We performed pneumolysis and drained multiple loculated pockets. There were significant adhesions from the lower lobe to the diaphragm and from the middle lobe to the mediastinum and diaphragm. These were lysed. We drained all fluid pockets. A partial decortication was performed on the lower lobe. Multiple cultures were sent. We then placed 1 chest tube and expanded the lung after ensuring good hemostasis. The lung expanded well. The chest tube was secured and the ports were closed with absorbable sutures and maxwell. Sterile dressings were placed. The patient was transferred extubated to the PACU. He tolerated the procedure well and was taken to the PACU in hemodynamically stable condition.
--- NOTE | 2018-01-22 20:26 | CONSULT ---
Consult Consult Specialty:: Pulm/CCM Reason for Consultation:: Rt Lung exudative effusion s/p Rt thoracotomy and partial decortication - History of Present Illness Chief Complaint: Rt chest tube site pain History of Present Illness: 52yom former smoker PMHx of DMII, treated for unclear hx of TB(+ppd) who presented to ED with c/o SOB and recurrent fevers. Imaging significant for loculated Rt pleural effusion with PNA. Pleural fluid found to be exudative with cytology pending. AFB and culture negative so far. Today s/p bronchoscopy , Rt VATS, pneumolysis, partial decortication and drainage of empyema with rt anterior chest tube placement. Pt tolerated procedure w/o complications. He was intubated for the procedure then extubated in PACU. He is transferred to ICU for post-op management. In ICU rec'd A+O x3, VS T 98F, HR 98, BP 125/86, O2 sat 96% on 3L NC O2. Rt chest incision site dry and intact. Rt CT to 20mmHg LWS with no air leak and small amt serosang fluid. Post-op CXR shows no pneumothorax. He c/o rt CT site pain. Able to tolerate po w/o c/o nausea. 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 History of Recent Travel: No Home Medications - Allergies Allergies/Adverse Reactions: Allergies Allergy/AdvReac Type Severity Reaction Status Date / Time No Known Allergies Allergy Verified 01/11/18 14:37 - Home Medications Home Medications: Ambulatory Orders No Home Medications 0 dose .ROUTE UTDICT 06/11/14 Amoxicillin/Potassium Clav [Augmentin 875-125 Tablet] 1 each PO BID #8 tablet Azithromycin 250 mg PO DAILY #4 tablet 12/31/17 Metformin HCl 500 mg PO BID #30 tablet 12/31/17 metFORMIN HCL [Glucophage -] 500 mg PO DAILY #30 tablet 12/31/17 Family Disease History - Family Disease History Family History: Unremarkable Other Family History: No family h/o DM Review of Systems - Review of Systems Constitutional: reports: Fever Eyes: reports: No Symptoms HENT: reports: No Symptoms Neck: reports: No Symptoms Cardiovascular: reports: No Symptoms Respiratory: reports: SOB Gastrointestinal: reports: No Symptoms Genitourinary: reports: No Symptoms Musculoskeletal: reports: No Symptoms Neurological: reports: No Symptoms Endocrine: reports: No Symptoms Hematology/Lymphatic: reports: No Symptoms Psychiatric: reports: No Symptoms Physical Exam Vital Signs: Vital Signs Temperature 98.0 F 01/22/18 18:30 Pulse Rate 110 H 01/22/18 18:40 Respiratory Rate 20 01/22/18 18:40 Blood Pressure 148/92 01/22/18 18:40 O2 Sat by Pulse Oximetry (%) 98 01/22/18 18:15 Constitutional: Yes: No Distress, Calm, Thin Eyes: Yes: PERRL HENT: Yes: Atraumatic, Normocephalic Neck: Yes: Trachea Midline Cardiovascular: Yes: Regular Rate and Rhythm, S1, S2 Respiratory: Yes: Regular, On Nasal O2 Gastrointestinal: Yes: Normal Bowel Sounds, Soft Renal/: Yes: Cowan Present Musculoskeletal: Yes: WNL Extremities: Yes: WNL Edema: No Peripheral Pulses WNL: No Integumentary: Yes: Incision Wound/Incision: Yes: Dressing Dry and Intact (Rt chest dressing c/d/i Rt Chest tube to LWS with sero-sang drainage) Neurological: Yes: Alert, Oriented ...Motor Strength: WNL Psychiatric: Yes: Alert, Oriented Labs: CBC, BMP 01/22/18 08:05 01/22/18 08:05 CBC,CMP WBC 12.1 K/mm3 (4.0-10.0) H 01/22/18 08:05 RBC 3.68 M/mm3 (4.00-5.60) L 01/22/18 08:05 Hgb 10.8 GM/dL (11.7-16.9) L 01/22/18 08:05 Hct 32.6 % (35.4-49) L 01/22/18 08:05 MCV 88.6 fl (80-96) 01/22/18 08:05 MCH 29.3 pg (25.7-33.7) 01/22/18 08:05 MCHC 33.1 g/dl (32.0-35.9) 01/22/18 08:05 RDW 13.2 % (11.9-15.9) 01/22/18 08:05 Plt Count 557 K/MM3 (134-434) H 01/22/18 08:05 MPV 7.4 fl (7.5-11.1) L 01/22/18 08:05 Neutrophils % 66.9 % (42.8-82.8) 01/21/18 06:00 Neutrophils % (Manual) 75.0 % (42.8-82.8) 01/12/18 08:00 Band Neutrophils % 0.0 % 01/12/18 08:00 Lymphocytes % 21.4 % (8-40) 01/21/18 06:00 Lymphocytes % (Manual) 9.0 % (8-40) 01/12/18 08:00 Monocytes % 9.9 % (3.8-10.2) 01/21/18 06:00 Monocytes % (Manual) 11 % (3.8-10.2) H D 01/12/18 08:00 Eosinophils % 1.2 % (0-4.5) 01/21/18 06:00 Eosinophils % (Manual) 1.0 % (0-4.5) D 01/12/18 08:00 Basophils % 0.6 % (0-2.0) 01/21/18 06:00 Basophils % (Manual) 2.0 % (0-2.0) D 01/12/18 08:00 Myelocytes % (Man) 0 % (0-2) 01/12/18 08:00 Promyelocytes % (Man) 0 % (0-2) D 01/12/18 08:00 Nucleated RBC % 0 % (0-0) 01/12/18 08:00 Metamyelocytes 0 % (0-2) 01/12/18 08:00 Hypochromia 0 01/12/18 08:00 Platelet Estimate Increased 01/12/18 08:00 Polychromasia 0 01/12/18 08:00 Poikilocytosis 0 01/12/18 08:00 Anisocytosis 2+ 01/12/18 08:00 Microcytosis 2+ 01/12/18 08:00 Macrocytosis 0 01/12/18 08:00 ESR 101 mm/hr (0-20) H 01/19/18 06:30 Sodium 136 mmol/L (136-145) 01/22/18 08:05 Potassium 4.4 mmol/L (3.5-5.1) 01/22/18 08:05 Chloride 100 mmol/L (98-107) 01/22/18 08:05 Carbon Dioxide 26 mmol/L (21-32) 01/22/18 08:05 Anion Gap 10 (8-16) 01/22/18 08:05 BUN 9 mg/dL (7-18) D 01/22/18 08:05 Creatinine 0.5 mg/dL (0.7-1.3) L 01/22/18 08:05 Creat Clearance w eGFR > 60 (>60) 01/22/18 08:05 POC Glucometer 180 UNITS (80-120) 01/22/18 11:27 Random Glucose 159 mg/dL (74-106) H 01/22/18 08:05 Hemoglobin A1c % 12.5 % (4.8-6.0) H 01/12/18 08:00 Lactic Acid 1.7 mmol/L (0.0-2.0) 01/11/18 17:20 Calcium 8.5 mg/dL (8.5-10.1) 01/22/18 08:05 Phosphorus 2.7 mg/dL (2.5-4.9) D 01/13/18 06:15 Magnesium 1.8 mg/dL (1.8-2.4) 01/17/18 05:05 Total Bilirubin 0.5 mg/dL (0.2-1.0) D 01/22/18 08:05 Direct Bilirubin 0.3 mg/dL (0.0-0.2) H 01/21/18 06:00 AST 72 U/L (15-37) H 01/22/18 08:05 ALT 61 U/L (12-78) 01/22/18 08:05 Alkaline Phosphatase 327 U/L (45-117) H 01/22/18 08:05 Creatine Kinase 25 IU/L (39-308) L 01/11/18 17:07 Troponin I < 0.02 ng/ml (0.00-0.05) 01/11/18 17:07 C-Reactive Protein 4.1 MG/DL (0.00-0.3) H 01/19/18 06:30 Total Protein 8.4 g/dl (6.4-8.2) H 01/22/18 08:05 Albumin 2.0 g/dl (3.4-5.0) L 01/22/18 08:05 Lipase 173 U/L (73-393) 01/11/18 16:21 Tumor Marker AFP 15.9 ng/ml (0.0-8.3) H 01/20/18 06:30 TSH 0.94 uIU/ml (0.358-3.74) 01/12/18 08:00 Current Medications Acetaminophen (Tylenol -) 650 mg PO Q6H PRN PRN Reason: PAIN LEVEL 1-5 Acetaminophen (Tylenol -) 650 mg PO Q6H PRN PRN Reason: FEVER Chlorhexidine Gluconate (Hibiclens For Decolonization -) 1 applic TP HS MICHELLE Fentanyl (Sublimaze Injection -) 50 mcg IVPUSH [id number] PRN PRN Reason: PAIN-PACU ORDER X 4 DOSES ONLY Stop: 01/22/18 23:59 Last Admin: 01/22/18 17:35 Dose: 50 mcg Glipizide (Glucotrol -) 5 mg PO BID@0700,1630 [facility] Heparin Sodium (Porcine) (Heparin -) 5,000 unit SQ BID MICHELLE Lactated Ringer's (Lactated Ringers Solution) 1,000 mls @ 75 mls/hr IV ASDIR MICHELLE Dextrose/Sodium Chloride (D5-1/2ns -) 1,000 mls @ 50 mls/hr IV ASDIR MICHELLE Piperacillin Sod/Tazobactam (Sod 3.375 gm/ Dextrose) 50 mls @ 100 mls/hr IVPB Q6H-IV MICHELLE Insulin Aspart (Novolog Vial Sliding Scale -) 1 vial SQ ACHS MICHELLE PRN Reason: Protocol Mupirocin (Bactroban Ointment (For Decolonization) -) 1 applic NS BID MICHELLE Stop: 01/27/18 21:59 Ondansetron HCl (Zofran Injection) 4 mg IVPUSH Q6H PRN PRN Reason: NAUSEA AND/OR VOMITING Stop: 01/23/18 07:00 Oxycodone HCl (Roxicodone -) 10 mg PO Q4H PRN PRN Reason: PAIN LEVEL 6-10 Stop: 01/23/18 16:33 Promethazine HCl (Phenergan Injection -) 12.5 mg IVPUSH Q6H PRN PRN Reason: NAUSEA-FOR RESCUE AFTER 15 MIN Stop: 01/23/18 07:00 Vital Signs Period Temp Pulse Resp BP Sys/Jc Pulse Ox Last 24 Hr 98 F-99.0 F 84-110 15-20 120-169/72-95 95-99 Imaging - Results Chest X-ray: Report Reviewed Problem List - Problems (1) Diabetes mellitus Code(s): E11.9 - TYPE 2 DIABETES MELLITUS WITHOUT COMPLICATIONS Qualifiers: Diabetes mellitus type: other specified (including JAIME) Diabetes mellitus complication status: with unspecified complications Diabetes mellitus vermin exterminator insulin use: unspecified vermin exterminator insulin use status Qualified Code(s): E13.8 - Other specified diabetes mellitus with unspecified complications (2) Pleural effusion associated with pulmonary infection Code(s): J18.9 - PNEUMONIA, UNSPECIFIED ORGANISM; J91.8 - PLEURAL EFFUSION IN OTHER CONDITIONS CLASSIFIED ELSEWHERE (3) Pneumonia Code(s): J18.9 - PNEUMONIA, UNSPECIFIED ORGANISM Qualifiers: Pneumonia type: due to Pneumococcus Laterality: right Lung location: lower lobe of lung Qualified Code(s): J13 - Pneumonia due to Streptococcus pneumoniae (4) Right-sided chest pain Code(s): R07.9 - CHEST PAIN, UNSPECIFIED Assessment/Plan 52yom former smoker PMHx of DMII, TB who presented to ED with c/o SOB and recurrent fevers. Found to have empyema and pneumonia. Now s/p bronchoscopy , Rt VATS, pneumolysis, partial decortication, drainage of empyema and Rt anterior CT placement. Cultures sent. He is transferred to ICU for post-op management. Plan: -O2 support for O2 sat>92% - Monitor CT output for air leak and drainage amt -Pain management for surgical site pain -Continue Zosyn for empiric coverage -f/u cultures; tailor antibiotics to culture results -Incentive spirometer -Advance activity -Continue DMII regimen -HD monitor -Monitor BMP AND UOP -Adequate hydration -Advance diet as tolerated -GI and DVT prophylaxis [address], LOR[place] CC time 35mins
[2018-01-22] MEDS ORDERED: CHLORHEXIDINE GLUCONATE 4% CLEANSER FOR DECOLONIZATION TP SCH (22:00)
[2018-01-22] MEDS: HEPARIN NA (PORCINE) 5,000 UNITS/ML 1ML VIAL SQ SCH (22:26)
[2018-01-22] MEDS: MUPIROCIN 2% TOPICAL OINTMENT FOR DECOLONIZATION NS SCH (22:26)
[2018-01-22] MEDS ORDERED: morphine SULFATE 4 MG/ML VIAL ONE (22:44)
[2018-01-22] MEDS ORDERED: SODIUM CHLORIDE 0.45% 1,000 ML IV SCH (23:00)
[2018-01-22] MEDS: MORPHINE SULFATE 10 MG/1 ML *VIAL IVPUSH PRN (23:11)
[2018-01-23] MEDS: PIPERACILLIN/TAZOB 3.375 GM 3.375 GM in DEXTROSE 5%-WATER - 50 ML IVPB SCH ×4 (03:13→21:32)
[2018-01-23] MEDS: INSULIN SLIDING SCALE (NOVOLOG) 1 VIAL SQ SCH ×4 (06:03→21:23)
[2018-01-23] MEDS: glipiZIDE 5 MG TABLET (FP) PO SCH ×2 (06:03→16:45)
[2018-01-23 06:13] LABS: BASO % 0.2 % (0-2.0); HEMATOCRIT 26.7 % (35.4-49); HEMOGLOBIN 8.8 GM/dL (11.7-16.9); LYMPH % 8.7 % (8-40); MCHC 32.8 g/dl (32.0-35.9); MEAN CELL VOLUME 88.3 fl (80-96); MEAN PLT VOLUME 7.5 fl (7.5-11.1); NEUT % 84.1 % (42.8-82.8); PLATELET COUNT 543 K/MM3 (134-434); RBC 3.02 M/mm3 (4.00-5.60); RDW 13.1 % (11.9-15.9); WHITE BLOOD COUNT 15.8 K/mm3 (4.0-10.0)
--- NOTE | 2018-01-23 06:38 | PN ---
Progress Note, Physician History of Present Illness: This is a 52 YOM with h/o DMII, treated for unclear hx of TB (Dx by +PPD, patient states took 9 pills once a week for 9 months), recent PNA (last week, tx with Augmentin/Azithromycin as outpatient without improvement), and former cigarette smoking who presented to ED with c/o SOB and recurrent fevers. Imaging significant for loculated Rt pleural effusion with PNA. Pleural fluid found to be exudative with cytology pending. AFB and culture negative so far. Yesterday taken to OR for right VATS, pneumolysis, partial decortication and drainage of empyema with right anterior chest tube placement. Pt tolerated procedure w/o complications. He was intubated for the procedure then extubated in PACU. He is transferred to ICU for post-op management. In ICU rec'd A+O x3, VS T 98F, HR 98, BP 125/86, O2 sat 96% on 3L NC O2. Rt chest incision site dry and intact. Rt CT to 20mmHg LWS with no air leak and small amt serosanguinous fluid. Post-op CXR shows no pneumothorax. He c/o rt CT site pain. Able to tolerate PO without nausea. [address] Blakely took to OR yesterday. EBL 60cc. Samples taken BAL, pleural fluid, pleural contents, pleural biopsy. Patient received in ICU from PACU, no distress , mild SOB, c/o surgical site pain throughout the night but got relief with medications. SUBJECTIVE Patient states feels much better, no pain now, had some pain at chest tube site earlier this AM but medications help significantly. No SOB, no other complaints. 24 HOUR INTAKE & OUTPUT Intake: 1500cc Output: 350cc Net: +1150cc BM: None reported LINES/TUBES/DRAINS Right anterior chest tube: placed 01/22 Cowan placed 01/22 - Current Medication List Current Medications: Active Medications Acetaminophen (Tylenol -) 650 mg PO Q6H PRN PRN Reason: PAIN LEVEL 1-5 Last Admin: 01/22/18 20:30 Dose: 650 mg Acetaminophen (Tylenol -) 650 mg PO Q6H PRN PRN Reason: FEVER Chlorhexidine Gluconate (Hibiclens For Decolonization -) 1 applic TP HS MICHELLE Last Admin: 01/22/18 22:26 Dose: 1 applic Glipizide (Glucotrol -) 5 mg PO BID@0700,1630 [facility] Last Admin: 01/23/18 06:03 Dose: 5 mg Heparin Sodium (Porcine) (Heparin -) 5,000 unit SQ BID [facility] Last Admin: 01/22/18 22:26 Dose: 5,000 unit Lactated Ringer's (Lactated Ringers Solution) 1,000 mls @ 75 mls/hr IV ASDIR [facility] Last Admin: 01/22/18 23:10 Dose: Not Given Piperacillin Sod/Tazobactam (Sod 3.375 gm/ Dextrose) 50 mls @ 100 mls/hr IVPB Q6H-IV [facility] Last Admin: 01/23/18 03:13 Dose: 100 mls/hr Sodium Chloride (1/2 Normal Saline) 1,000 mls @ 42 mls/hr IV ASDIR [facility] Last Admin: 01/22/18 23:10 Dose: 42 mls/hr Insulin Aspart (Novolog Vial Sliding Scale -) 1 vial SQ ACHS [facility] PRN Reason: Protocol Last Admin: 01/23/18 06:03 Dose: 6 units Morphine Sulfate (Morphine Injection -) 1 mg IVPUSH Q3H PRN PRN Reason: PAIN LEVEL 1-5 Last Admin: 01/22/18 23:11 Dose: 1 mg Mupirocin (Bactroban Ointment (For Decolonization) -) 1 applic NS BID [facility] Stop: 01/27/18 21:59 Last Admin: 01/22/18 22:26 Dose: 1 applic Ondansetron HCl (Zofran Injection) 4 mg IVPUSH Q6H PRN PRN Reason: NAUSEA AND/OR VOMITING Stop: 01/23/18 07:00 Oxycodone HCl (Roxicodone -) 10 mg PO Q4H PRN PRN Reason: PAIN LEVEL 6-10 Stop: 01/23/18 16:33 Last Admin: 01/22/18 20:30 Dose: 10 mg Promethazine HCl (Phenergan Injection -) 12.5 mg IVPUSH Q6H PRN PRN Reason: NAUSEA-FOR RESCUE AFTER 15 MIN Stop: 01/23/18 07:00 - Objective Vital Signs: Vital Signs Temperature 98.2 F 01/23/18 06:00 Pulse Rate 87 01/23/18 06:00 Respiratory Rate 01/23/18 06:00 Blood Pressure 121/81 01/23/18 06:00 O2 Sat by Pulse Oximetry (%) 96 01/22/18 20:45 Constitutional: Yes: No Distress, Calm, Cachectic, Thin, Other (On NC) Neck: Yes: Supple, Trachea Midline Cardiovascular: Yes: WNL, Regular Rate and Rhythm Respiratory: Yes: Diminished, Rhonchi, Other (right anterior chest wall with chest tube connected to LWS with sero-sanguinous drainage, incision CDI) Gastrointestinal: Yes: Normal Bowel Sounds, Soft Extremities: Yes: WNL. No: Calf Tenderness, Cold, Cyanosis, Deformity, Delayed Capillary Refill, Pallor Edema: No Peripheral Pulses: Left Doralis Pedis: 2+, Right Dorsalis Pedis: 2+ Integumentary: Yes: WNL. No: Jaundice Wound/Incision: Yes: Clean/Dry, Well Approximated Neurological: Yes: WNL, Alert, Oriented ...Motor Strength: WNL Psychiatric: Yes: WNL, Alert, Oriented. No: Agitated Labs: CBC, BMP 01/23/18 05:20 INR, PTT INR 1.18 (0.82-1.09) H 01/12/18 08:30 Assessment/Plan 52yom former smoker PMHx of DMII, TB who presented to ED with c/o SOB and recurrent fevers. Found to have empyema and pneumonia. Now s/p bronchoscopy , Rt VATS, pneumolysis, partial decortication, drainage of empyema and Rt anterior CT placement. Cultures sent. He is transferred to ICU for post-op management. RESP #Empyema, PNA, pleural effusion. Cultures without concerning growth at this time , awaiting sputum culture results. -O2 support for O2 sat>92% -Monitor CT output for air leak and drainage amt -Pain management for surgical site pain (morphine, oxycodone, Tylenol) -Continue Zosyn for empiric coverage -f/u cultures; tailor antibiotics to culture results -Incentive spirometer -Advance activity -Daily CXR -Incentive spirometer ID #H/O Tuberculosis, reportedly treated in the past. -F/U re-testing -F/U final blood culture results -ID is following ENDO #Type II Diabetes Mellitus -Continue inpatient glipizide and insulin regimen -Finger stick and CMP/BMP monitoring FEN -Monitor BMP AND UOP -Advance diet as tolerated -Adequate hydration -Zofran, promethazine PPX DVT: HSQ GI: None PT: Order placed DISPO Will discuss possibility of transfer to floor.
[2018-01-23 06:41] LABS: ALBUMIN 1.9 g/dl (3.4-5.0); ANION GAP 12 (8-16); BILIRUBIN,TOTAL 0.6 mg/dL (0.2-1.0); BLOOD UREA NITROGEN 12 mg/dL (7-18); CALCIUM 7.9 mg/dL (8.5-10.1); CHLORIDE 96 mmol/L (98-107); CO2 24 mmol/L (21-32); CREATININE 0.5 mg/dL (0.7-1.3); GLUCOSE,RANDOM 251 mg/dL (74-106); POTASSIUM 4.8 mmol/L (3.5-5.1); SGOT/AST 37 U/L (15-37); SGPT/ALT 41 U/L (12-78); SODIUM 132 mmol/L (136-145); TOT PROT 7.3 g/dl (6.4-8.2)
[2018-01-23 06:42] LABS: ALK PHOS 242 U/L (45-117)
[2018-01-23] MEDS: MORPHINE SULFATE 10 MG/1 ML *VIAL IVPUSH PRN ×2 (08:18→21:33)
[2018-01-23] MEDS ORDERED: PT OWN MED DRAWER 7, Y5N ONE ×3 (08:30→23:08)
[2018-01-23] MEDS: HEPARIN NA (PORCINE) 5,000 UNITS/ML 1ML VIAL SQ SCH ×2 (09:34→21:33)
[2018-01-23] MEDS: MUPIROCIN 2% TOPICAL OINTMENT FOR DECOLONIZATION NS SCH ×2 (09:36→21:22)
--- NOTE | 2018-01-23 09:37 | PN ---
Progress Note (short form) - Note Progress Note: POD#1 Pt without any CP/SOB. He was medicated earlier this am and his pain improved. Vital Signs Period Temp Pulse Resp BP Sys/Jc Pulse Ox Last 24 Hr 97.6 F-98.9 F 72-110 11-20 112-169/77-95 95-98 CT: no air leak, out 140ml since OR(serosangrenous) Kohler: 500ml clear/yellow urine PE: GEN: A&0x3, NAD CV: RRR Lungs: CTA b/l, Incision c/d/i, no air leak(CT on suction) CXR: CT in good position, no PNTX CBC, BMP 01/23/ 05:20 01/23/18 05:20 A/P: 52 yo male s/p Bronchoscopy, right vats, pneumolysis, partial decortication, drainage of empyema Advance diet today OOB/ambulate Incentive spirometer oral pain meds/stool softners as needed for constipation discontinue kohler CT to LWS-20cm
[2018-01-23] MEDS ORDERED: oxyCODONE HCL 5 MG TABLET PO PRN (09:40)
[2018-01-23] MEDS ORDERED: DOCUSATE SODIUM 100 MG CAPSULE (FP) PO PRN ×2 (09:41→19:47)
--- NOTE | 2018-01-23 10:03 | PN ---
Progress Note (short form) - Note Progress Note: SUBJECTIVE: The patient was seen and examined at the bedside, he reports he is feeling better today POD#1 VATS procedure Current Medications Generic Name Dose Route Start Last Admin Trade Name Freq PRN Reason Stop Dose Admin Acetaminophen 650 mg 01/22/18 17:00 01/22/18 20:30 Tylenol - PO 650 mg Q6H PRN Administration PAIN LEVEL 1-5 Acetaminophen 650 mg 01/22/18 17:10 Tylenol - PO Q6H PRN FEVER Chlorhexidine Gluconate 1 applic 01/22/18 22:00 01/22/18 22:26 Hibiclens For Decolonization - TP 1 applic HS MICHELLE Administration Docusate Sodium 100 mg 01/23/18 09:41 Colace - PO BID PRN CONSTIPATION Glipizide 5 mg 01/23/18 07:00 01/23/18 06:03 Glucotrol - PO 5 mg BID@0700,1630 MICHELLE Administration Heparin Sodium (Porcine) 5,000 unit 01/22/18 22:00 01/23/18 09:34 Heparin - SQ 5,000 unit BID MICHELLE Administration Piperacillin Sod/Tazobactam 50 mls @ 100 mls/hr 01/22/18 21:00 01/23/18 08:43 Sod 3.375 gm/ Dextrose IVPB 100 mls/hr Q6H-IV MICHELLE Administration Insulin Aspart 1 vial 01/22/18 22:00 01/23/18 06:03 Novolog Vial Sliding Scale - SQ 6 units ACHS MICHELLE Administration Protocol Morphine Sulfate 1 mg 01/22/18 22:55 01/23/18 08:18 Morphine Injection - IVPUSH 1 mg Q3H PRN Administration PAIN LEVEL 1-5 Mupirocin 1 applic 01/22/18 22:00 01/23/18 09:36 Bactroban Ointment (For Decolonization) - NS 01/27/18 21:59 1 applic BID MICHELLE Administration Oxycodone HCl 10 mg 01/22/18 16:34 01/22/18 20:30 Roxicodone - PO 01/23/18 16:33 10 mg Q4H PRN Administration PAIN LEVEL 6-10 Oxycodone HCl 5 mg 01/23/18 09:40 Roxicodone - PO Q6H PRN PAIN LEVEL 1-5 OBJECTIVE: Vital Signs Period Temp Pulse Resp BP Sys/Jc Pulse Ox Last 24 Hr 97.6 F-98.9 F 65-110 11-20 111-169/75-95 95-98 Physical Exam: General: NAD, A&Ox3 Lungs: Diminished breath sounds on the right Heart: RRR, S1S2 Abd: Soft, non-tender, non-distended. Normoactive bowel sounds Ext: Warm, well-perfused. 2+ DP/PT bilaterally Neuro: CN 2-12 intact CBCD WBC 15.8 K/mm3 (4.0-10.0) H D 01/23/18 05:20 RBC 3.02 M/mm3 (4.00-5.60) L 01/23/18 05:20 Hgb 8.8 GM/dL (11.7-16.9) L D 01/23/18 05:20 Hct 26.7 % (35.4-49) L D 01/23/18 05:20 MCV 88.3 fl (80-96) 01/23/18 05:20 MCHC 32.8 g/dl (32.0-35.9) 01/23/18 05:20 RDW 13.1 % (11.9-15.9) 01/23/18 05:20 Plt Count 543 K/MM3 (134-434) H 01/23/18 05:20 MPV 7.5 fl (7.5-11.1) 01/23/18 05:20 CMP Sodium 132 mmol/L (136-145) L 01/23/18 05:20 Potassium 4.8 mmol/L (3.5-5.1) 01/23/18 05:20 Chloride 96 mmol/L (98-107) L 01/23/18 05:20 Carbon Dioxide 24 mmol/L (21-32) 01/23/18 05:20 Anion Gap 12 (8-16) 01/23/18 05:20 BUN 12 mg/dL (7-18) D 01/23/18 05:20 Creatinine 0.5 mg/dL (0.7-1.3) L 01/23/18 05:20 Creat Clearance w eGFR > 60 (>60) 01/23/18 05:20 Random Glucose 251 mg/dL (74-106) H D 01/23/18 05:20 Calcium 7.9 mg/dL (8.5-10.1) L 01/23/18 05:20 Total Bilirubin 0.6 mg/dL (0.2-1.0) 01/23/18 05:20 AST 37 U/L (15-37) D 01/23/18 05:20 ALT 41 U/L (12-78) D 01/23/18 05:20 Alkaline Phosphatase 242 U/L (45-117) H D 01/23/18 05:20 Total Protein 7.3 g/dl (6.4-8.2) 01/23/18 05:20 Albumin 1.9 g/dl (3.4-5.0) L 01/23/18 05:20 CARDIAC ENZYMES Creatine Kinase 25 IU/L (39-308) L 01/11/18 17:07 Troponin I < 0.02 ng/ml (0.00-0.05) 01/11/18 17:07 Microbiology 01/22/18 15:51 Tissue-Other MAIG Preparation - Preliminary 01/22/18 15:51 Tissue-Other Fungal Culture - Preliminary 01/22/18 15:48 Pleural Fluid MAGI Preparation - Preliminary 01/22/18 15:48 Pleural Fluid Fungal Culture - Preliminary 01/22/18 15:51 Tissue-Other AFB Smear Concentration - Preliminary 01/22/18 15:51 Tissue-Other Mycobacterial Culture - Preliminary 01/22/18 15:48 Pleural Fluid AFB Smear Concentration - Preliminary 01/22/18 15:48 Pleural Fluid Mycobacterial Culture - Preliminary 01/22/18 16:00 Bronchial Washings - Right Upper Lobe AFB Smear Concentration - Preliminary 01/22/18 16:00 Bronchial Washings - Right Upper Lobe Mycobacterial Culture - Preliminary 01/17/18 21:30 Blood - Peripheral Venous Blood Culture - Final NO GROWTH AFTER 5 DAYS INCUBATION 01/17/18 18:45 Blood - Peripheral Venous Blood Culture - Final NO GROWTH AFTER 5 DAYS INCUBATION 01/21/18 04:00 Sputum - Expectorated Sputum Culture - Preliminary Yeast Like Organism 01/17/18 12:20 Pleural Fluid Gram Stain - Final 01/17/18 12:20 Pleural Fluid Body Fluid Culture - Final NO GROWTH OF AEROBIC ORGANISMS AFTER 48 HOURS INCUBATION 01/17/18 12:20 Pleural Fluid Anaerobic Culture - Final NO ANAEROBES WERE ISOLATED 01/16/18 06:00 Sputum - Expectorated AFB Smear Concentration - Final 01/16/18 06:00 Sputum - Expectorated Direct Acid Fast Bacilli Smear - Final 01/16/18 06:00 Sputum - Expectorated Mycobacterial Culture - Preliminary 01/17/18 20:45 Urine - Urine Clean Catch Urine Culture - Final NO GROWTH OBTAINED 01/13/18 11:00 Sputum - Expectorated AFB Smear Concentration - Final 01/13/18 11:00 Sputum - Expectorated Direct Acid Fast Bacilli Smear - Final 01/13/18 11:00 Sputum - Expectorated Mycobacterial Culture - Preliminary 01/15/18 17:00 Sputum - Aerosol Induced AFB Smear Concentration - Final 01/15/18 17:00 Sputum - Aerosol Induced Direct Acid Fast Bacilli Smear - Final 01/15/18 17:00 Sputum - Aerosol Induced Mycobacterial Culture - Preliminary 01/17/18 12:20 Pleural Fluid MAGI Preparation - Preliminary 01/17/18 12:20 Pleural Fluid Fungal Culture - Preliminary 01/11/18 17:30 Blood - Peripheral Venous Blood Culture - Final NO GROWTH AFTER 5 DAYS INCUBATION 01/11/18 17:20 Blood - Peripheral Venous Blood Culture - Final NO GROWTH AFTER 5 DAYS INCUBATION 01/11/18 14:45 Nasopharyngeal Swab Influenza Types A,B Antigen (VALARIE) - Final 01/11/18 14:45 Nasopharyngeal Swab - Final 01/13/18 13:37 Sputum - Expectorated Gram Stain - Final 01/13/18 13:37 Sputum - Expectorated Sputum Culture - Final Yeast Like Organism 01/11/18 17:44 Sputum - Expectorated Gram Stain - Final 01/11/18 17:44 Sputum - Expectorated Sputum Culture - Final NORMAL RESPIRATORY ANNA 01/12/18 05:03 Urine - Urine Clean Catch Urine Culture - Final NO GROWTH OBTAINED 01/12/18 18:00 Urine For Antigen Detection Legionella Antigen - Final 01/12/18 18:00 Urine For Antigen Detection Streptococcus pneumoniae Antigen (M - Final 01/12/18 05:03 Urine For Antigen Detection Legionella Antigen - Final 01/12/18 05:03 Urine For Antigen Detection Streptococcus pneumoniae Antigen (M - Final Assessment: This is a 52 year old male with PMHx of DM, who presented to the ED with cough, shortness of breath, chest pain, night sweats, weight loss Plan: 1) Sepsis 2/2 pneumococcal pneumonia with possible empyema - POD#1 Bronchoscopy, right VATs, pneumolysis, partial decortication, drainage of empyema - Continue Zoisyn - F/u bronchial washings and cultures - Appreciate pulmonary consult - Appreciate ID consult - Appreciate CT surgery consult 2) Hx of latent Tb - Quant gold positive, 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 - New Patient This patient is new to me today: No - Critical Care Critical Care patient: Yes Total Critical Care Time (in minutes): 35 Critical Care Statement: The care of this patient involved high complexity decision making to prevent further life threatening deterioration of the patient 's condition and/or to evaluate & treat vital organ system(s) failure or risk of failure.
--- NOTE | 2018-01-23 10:12 | PN ---
Progress Note, Physician Chief Complaint: day #1 s/p VATS - Current Medication List Current Medications: Active Medications Acetaminophen (Tylenol -) 650 mg PO Q6H PRN PRN Reason: PAIN LEVEL 1-5 Last Admin: 01/22/18 20:30 Dose: 650 mg Acetaminophen (Tylenol -) 650 mg PO Q6H PRN PRN Reason: FEVER Chlorhexidine Gluconate (Hibiclens For Decolonization -) 1 applic TP HS [facility] Last Admin: 01/22/18 22:26 Dose: 1 applic Docusate Sodium (Colace -) 100 mg PO BID PRN PRN Reason: CONSTIPATION Glipizide (Glucotrol -) 5 mg PO BID@0700,1630 [facility] Last Admin: 01/23/18 06:03 Dose: 5 mg Heparin Sodium (Porcine) (Heparin -) 5,000 unit SQ BID [facility] Last Admin: 01/23/18 09:34 Dose: 5,000 unit Piperacillin Sod/Tazobactam (Sod 3.375 gm/ Dextrose) 50 mls @ 100 mls/hr IVPB Q6H-IV [facility] Last Admin: 01/23/18 08:43 Dose: 100 mls/hr Insulin Aspart (Novolog Vial Sliding Scale -) 1 vial SQ ACHS [facility] PRN Reason: Protocol Last Admin: 01/23/18 06:03 Dose: 6 units Morphine Sulfate (Morphine Injection -) 1 mg IVPUSH Q3H PRN PRN Reason: PAIN LEVEL 1-5 Last Admin: 01/23/18 08:18 Dose: 1 mg Mupirocin (Bactroban Ointment (For Decolonization) -) 1 applic NS BID [facility] Stop: 01/27/18 21:59 Last Admin: 01/23/18 09:36 Dose: 1 applic Oxycodone HCl (Roxicodone -) 10 mg PO Q4H PRN PRN Reason: PAIN LEVEL 6-10 Stop: 01/23/18 16:33 Last Admin: 01/22/18 20:30 Dose: 10 mg Oxycodone HCl (Roxicodone -) 5 mg PO Q6H PRN PRN Reason: PAIN LEVEL 1-5 - Objective Vital Signs: Vital Signs Temperature 98.2 F 01/23/18 06:00 Pulse Rate 65 01/23/18 08:00 Respiratory Rate 13 01/23/18 08:00 Blood Pressure 111/75 01/23/18 08:00 O2 Sat by Pulse Oximetry (%) 96 01/22/18 20:45 Labs: CBC, BMP 01/23/18 05:20 01/23/18 05:20 INR, PTT INR 1.18 (0.82-1.09) H 01/12/18 08:30 Assessment/Plan doing well s/p GA for VATS. No anesthetic issues- continue current care
--- NOTE | 2018-01-23 10:39 | PN ---
Progress Note, Physician History of Present Illness: Awake, alert POD #1 VATS Cultures pending Temps down Afebrile WBC elevated - Current Medication List Current Medications: Active Medications Acetaminophen (Tylenol -) 650 mg PO Q6H PRN PRN Reason: PAIN LEVEL 1-5 Last Admin: 01/22/18 20:30 Dose: 650 mg Acetaminophen (Tylenol -) 650 mg PO Q6H PRN PRN Reason: FEVER Chlorhexidine Gluconate (Hibiclens For Decolonization -) 1 applic TP HS [facility] Last Admin: 01/22/18 22:26 Dose: 1 applic Docusate Sodium (Colace -) 100 mg PO BID PRN PRN Reason: CONSTIPATION Glipizide (Glucotrol -) 5 mg PO BID@0700,1630 [facility] Last Admin: 01/23/18 06:03 Dose: 5 mg Heparin Sodium (Porcine) (Heparin -) 5,000 unit SQ BID [facility] Last Admin: 01/23/18 09:34 Dose: 5,000 unit Piperacillin Sod/Tazobactam (Sod 3.375 gm/ Dextrose) 50 mls @ 100 mls/hr IVPB Q6H-IV [facility] Last Admin: 01/23/18 08:43 Dose: 100 mls/hr Insulin Aspart (Novolog Vial Sliding Scale -) 1 vial SQ ACHS [facility] PRN Reason: Protocol Last Admin: 01/23/18 06:03 Dose: 6 units Morphine Sulfate (Morphine Injection -) 1 mg IVPUSH Q3H PRN PRN Reason: PAIN LEVEL 1-5 Last Admin: 01/23/18 08:18 Dose: 1 mg Mupirocin (Bactroban Ointment (For Decolonization) -) 1 applic NS BID [facility] Stop: 01/27/18 21:59 Last Admin: 01/23/18 09:36 Dose: 1 applic Oxycodone HCl (Roxicodone -) 10 mg PO Q4H PRN PRN Reason: PAIN LEVEL 6-10 Stop: 01/23/18 16:33 Last Admin: 01/22/18 20:30 Dose: 10 mg Oxycodone HCl (Roxicodone -) 5 mg PO Q6H PRN PRN Reason: PAIN LEVEL 1-5 - Objective Vital Signs: Vital Signs Temperature 97.8 F 01/23/18 10:00 Pulse Rate 77 01/23/18 10:00 Respiratory Rate 17 01/23/18 10:00 Blood Pressure 136/78 01/23/18 10:00 O2 Sat by Pulse Oximetry (%) 97 01/23/18 09:00 Constitutional: Yes: No Distress, Cachectic Eyes: Yes: Conjunctiva Clear Cardiovascular: Yes: Regular Rate and Rhythm, S1, S2 Respiratory: Yes: Diminished, Other (L chest tube) Gastrointestinal: Yes: Normal Bowel Sounds, Soft. No: Tenderness Edema: No Labs: CBC, BMP 01/23/18 05:20 01/23/18 05:20 INR, PTT INR 1.18 (0.82-1.09) H 01/12/18 08:30 Assessment/Plan Post op VATS c/s pending Leukocytosis Loculated pleural effusion Hx Latent TB Cachexia Await operative cultures Continue empiric Zosyn
--- NOTE | 2018-01-23 13:01 | PN ---
Teaching Attending Note Name of Resident: Trudi Cameron ATTENDING PHYSICIAN STATEMENT I saw and evaluated the patient. I reviewed the resident's note and discussed the case with the resident. I agree with the resident's findings and plan as documented. SUBJECTIVE: Pt seen and examined in the ICU. s/p R VATS/pneumolysis/partial decortication/ chest tube placement. States pain adequately controlled. No shortness of breath. No fevers or chills. OBJECTIVE: Last Vital Signs Temp Pulse Resp BP Pulse Ox 97.8 F 77 17 136/78 97 01/23/18 10:00 01/23/18 10:00 01/23/18 10:00 01/23/18 10:00 01/23/18 09:00 Intake & Output 01/20/18 01/21/18 01/22/18 01/23/18 23:59 23:59 23:59 23:59 Intake Total 978 394 8252 1300 Output Total 350 570 Balance 773 095 9296 730 Weight 48.563 kg Gen: NAD at rest Heart: RRR Lung: decreased breath sounds right base Abd: soft, nontender Ext: no edema Chest tube: serosanguinous drainage, no air leak CBC, BMP 01/23/18 05:20 01/23/18 05:20 Active Medications Acetaminophen (Tylenol -) 650 mg PO Q6H PRN PRN Reason: PAIN LEVEL 1-5 Last Admin: 01/22/18 20:30 Dose: 650 mg Acetaminophen (Tylenol -) 650 mg PO Q6H PRN PRN Reason: FEVER Chlorhexidine Gluconate (Hibiclens For Decolonization -) 1 applic TP HS [facility] Last Admin: 01/22/18 22:26 Dose: 1 applic Docusate Sodium (Colace -) 100 mg PO BID PRN PRN Reason: CONSTIPATION Glipizide (Glucotrol -) 5 mg PO BID@0700,1630 [facility] Last Admin: 01/23/18 06:03 Dose: 5 mg Heparin Sodium (Porcine) (Heparin -) 5,000 unit SQ BID [facility] Last Admin: 01/23/18 09:34 Dose: 5,000 unit Piperacillin Sod/Tazobactam (Sod 3.375 gm/ Dextrose) 50 mls @ 100 mls/hr IVPB Q6H-IV [facility] Last Admin: 01/23/18 08:43 Dose: 100 mls/hr Insulin Aspart (Novolog Vial Sliding Scale -) 1 vial SQ ACHS MICHELLE PRN Reason: Protocol Last Admin: 01/23/18 12:21 Dose: Not Given Morphine Sulfate (Morphine Injection -) 1 mg IVPUSH Q3H PRN PRN Reason: PAIN LEVEL 1-5 Last Admin: 01/23/18 08:18 Dose: 1 mg Mupirocin (Bactroban Ointment (For Decolonization) -) 1 applic NS BID MICHELLE Stop: 01/27/18 21:59 Last Admin: 01/23/18 09:36 Dose: 1 applic Oxycodone HCl (Roxicodone -) 10 mg PO Q4H PRN PRN Reason: PAIN LEVEL 6-10 Stop: 01/23/18 16:33 Last Admin: 01/22/18 20:30 Dose: 10 mg Oxycodone HCl (Roxicodone -) 5 mg PO Q6H PRN PRN Reason: PAIN LEVEL 1-5 ASSESSMENT AND PLAN: Pneumonia Loculated Parapneumonic Pleural Effusion s/p R VATS/pneumolysis/partial decortication ?h/o TB DM - pain control - incentive spirometry - continue antibiotics - f/u pleural fluid cultures, cytology - monitor chest tube output - daily CXR while chest tube in place - DVT prophylaxis - can monitor on floor if ok with surgery
[2018-01-23] MEDS ORDERED: INSULIN (NOVOLOG) ASPART 100 UNITS/ML 10ML VIAL ONE (16:42)
[2018-01-23] MEDS ORDERED: ACETAMINOPHEN 325 MG TABLET (FP) PO PRN (19:47)
[2018-01-23] MEDS: CHLORHEXIDINE GLUCONATE 4% CLEANSER FOR DECOLONIZATION TP SCH (21:22)
[2018-01-24] MEDS: PIPERACILLIN/TAZOB 3.375 GM 3.375 GM in DEXTROSE 5%-WATER - 50 ML IVPB SCH ×4 (02:52→21:34)
[2018-01-24] MEDS: INSULIN SLIDING SCALE (NOVOLOG) 1 VIAL SQ SCH ×4 (06:23→21:32)
[2018-01-24] MEDS: glipiZIDE 5 MG TABLET (FP) PO SCH ×2 (06:23→17:11)
[2018-01-24 07:04] LABS: INR 1.2 (0.82-1.09); PROTHROMBIN TIME (PATIENT) 13.6 SEC (9.98-11.88)
[2018-01-24 07:06] LABS: ACTIVATED PTT 34.5 SECONDS (26.9-34.4)
[2018-01-24 07:08] LABS: BASO % 0.8 % (0-2.0); EOS % 1.2 % (0-4.5); HEMATOCRIT 26.6 % (35.4-49); HEMOGLOBIN 8.7 GM/dL (11.7-16.9); LYMPH % 28.1 % (8-40); MCH 28.7 pg (25.7-33.7); MCHC 32.8 g/dl (32.0-35.9); MEAN CELL VOLUME 87.4 fl (80-96); MEAN PLT VOLUME 7.1 fl (7.5-11.1); MONO % 9.3 % (3.8-10.2); NEUT % 60.6 % (42.8-82.8); PLATELET COUNT 609 K/MM3 (134-434); RBC 3.05 M/mm3 (4.00-5.60); RDW 13.4 % (11.9-15.9); WHITE BLOOD COUNT 11.6 K/mm3 (4.0-10.0)
[2018-01-24 07:10] LABS: ALBUMIN 1.8 g/dl (3.4-5.0); ALK PHOS 223 U/L (45-117); ANION GAP 10 (8-16); BILIRUBIN,TOTAL 0.4 mg/dL (0.2-1.0); BLOOD UREA NITROGEN 9 mg/dL (7-18); CALCIUM 8.1 mg/dL (8.5-10.1); CHLORIDE 100 mmol/L (98-107); CO2 26 mmol/L (21-32); CREATININE 0.5 mg/dL (0.7-1.3); GLUCOSE,RANDOM 108 mg/dL (74-106); PHOSPHOROUS 2.8 mg/dL (2.5-4.9); POTASSIUM 4.3 mmol/L (3.5-5.1); SGOT/AST 41 U/L (15-37); SGPT/ALT 38 U/L (12-78); SODIUM 136 mmol/L (136-145); TOT PROT 6.9 g/dl (6.4-8.2)
[2018-01-24] MEDS ORDERED: PT OWN MED DRAWER 7, Y5N ONE ×3 (09:01→21:22)
[2018-01-24] MEDS: HEPARIN NA (PORCINE) 5,000 UNITS/ML 1ML VIAL SQ SCH ×2 (09:16→21:33)
[2018-01-24] MEDS ORDERED: INSULIN (NOVOLOG) ASPART 100 UNITS/ML 10ML VIAL ONE (11:48)
[2018-01-24] MEDS: MUPIROCIN 2% TOPICAL OINTMENT FOR DECOLONIZATION NS SCH (11:50)
[2018-01-24] MEDS: MORPHINE SULFATE 10 MG/1 ML *VIAL IVPUSH PRN ×2 (12:47→21:34)
[2018-01-24] MEDS: oxyCODONE HCL 5 MG TABLET PO PRN (14:01)
--- NOTE | 2018-01-24 14:09 | PN ---
Progress Note (short form) - Note Progress Note: SUBJECTIVE: The patient was seen and examined at the bedside, he reports he is feeling better today POD#2 VATS procedure Current Medications Generic Name Dose Route Start Last Admin Trade Name Sophie PRN Reason Stop Dose Admin Acetaminophen 650 mg 01/23/18 19:47 Tylenol - PO Q6H PRN FEVER Chlorhexidine Gluconate 1 applic 01/23/18 22:00 01/23/18 21:22 Hibiclens For Decolonization - TP 1 applic HS MICHELLE Administration Docusate Sodium 100 mg 01/23/18 19:47 Colace - PO BID PRN CONSTIPATION Glipizide 5 mg 01/24/18 07:00 01/24/18 06:23 Glucotrol - PO 5 mg BID@0700,1630 MICHELLE Administration Heparin Sodium (Porcine) 5,000 unit 01/23/18 22:00 01/24/18 09:16 Heparin - SQ 5,000 unit BID MICHELLE Administration Piperacillin Sod/Tazobactam 50 mls @ 100 mls/hr 01/23/18 21:00 01/24/18 14:04 Sod 3.375 gm/ Dextrose IVPB 100 mls/hr Q6H-IV MICHELLE Administration Insulin Aspart 1 vial 01/23/18 22:00 01/24/18 11:51 Novolog Vial Sliding Scale - SQ 2 units ACHS MICHELLE Administration Protocol Morphine Sulfate 1 mg 01/23/18 19:47 01/24/18 12:47 Morphine Injection - IVPUSH 1 mg Q3H PRN Administration PAIN LEVEL 6-10 Oxycodone HCl 5 mg 01/23/18 19:47 01/24/18 14:01 Roxicodone - PO 5 mg Q6H PRN Administration PAIN LEVEL 1-5 OBJECTIVE: Vital Signs Period Temp Pulse Resp BP Sys/Jc Pulse Ox Last 24 Hr 97.8 F-98.8 F 83-98 10-18 109-132/65-83 97-99 Physical Exam: General: NAD, A&Ox3 Lungs: Diminished breath sounds on the right Heart: RRR, S1S2 Abd: Soft, non-tender, non-distended. Normoactive bowel sounds Ext: Warm, well-perfused. 2+ DP/PT bilaterally Neuro: CN 2-12 intact CBCD WBC 11.6 K/mm3 (4.0-10.0) H 01/24/18 05:35 RBC 3.05 M/mm3 (4.00-5.60) L 01/24/18 05:35 Hgb 8.7 GM/dL (11.7-16.9) L 01/24/18 05:35 Hct 26.6 % (35.4-49) L 01/24/18 05:35 MCV 87.4 fl (80-96) 01/24/18 05:35 MCHC 32.8 g/dl (32.0-35.9) 01/24/18 05:35 RDW 13.4 % (11.9-15.9) 01/24/18 05:35 Plt Count 609 K/MM3 (134-434) H 01/24/18 05:35 MPV 7.1 fl (7.5-11.1) L 01/24/18 05:35 CMP Sodium 136 mmol/L (136-145) 01/24/18 05:35 Potassium 4.3 mmol/L (3.5-5.1) 01/24/18 05:35 Chloride 100 mmol/L (98-107) 01/24/18 05:35 Carbon Dioxide 26 mmol/L (21-32) 01/24/18 05:35 Anion Gap 10 (8-16) 01/24/18 05:35 BUN 9 mg/dL (7-18) D 01/24/18 05:35 Creatinine 0.5 mg/dL (0.7-1.3) L 01/24/18 05:35 Creat Clearance w eGFR > 60 (>60) 01/24/18 05:35 Random Glucose 108 mg/dL (74-106) H D 01/24/18 05:35 Calcium 8.1 mg/dL (8.5-10.1) L 01/24/18 05:35 Total Bilirubin 0.4 mg/dL (0.2-1.0) D 01/24/18 05:35 AST 41 U/L (15-37) H 01/24/18 05:35 ALT 38 U/L (12-78) 01/24/18 05:35 Alkaline Phosphatase 223 U/L (45-117) H 01/24/18 05:35 Total Protein 6.9 g/dl (6.4-8.2) 01/24/18 05:35 Albumin 1.8 g/dl (3.4-5.0) L 01/24/18 05:35 CARDIAC ENZYMES Creatine Kinase 25 IU/L (39-308) L 01/11/18 17:07 Troponin I < 0.02 ng/ml (0.00-0.05) 01/11/18 17:07 Microbiology 01/22/18 15:51 Tissue-Other Gram Stain - Final 01/22/18 15:51 Tissue-Other Tissue Culture - Preliminary NO AEROBIC GROWTH, 24 HRS 01/22/18 15:46 Pleural Fluid Gram Stain - Final 01/22/18 15:46 Pleural Fluid Body Fluid Culture - Preliminary NO AEROBIC GROWTH, 24 HRS 01/22/18 15:07 Bronchial Washings - Bilateral Lung Fluid Gram Stain - Final 01/22/18 15:07 Bronchial Washings - Bilateral Lung Fluid Bronchoalveolar Lavage Culture - Preliminary 01/21/18 04:00 Sputum - Expectorated Gram Stain - Final 01/21/18 04:00 Sputum - Expectorated Sputum Culture - Final Yeast Like Organism 01/22/18 15:51 Tissue-Other MAGI Preparation - Preliminary 01/22/18 15:51 Tissue-Other Fungal Culture - Preliminary 01/22/18 15:48 Pleural Fluid MAGI Preparation - Preliminary 01/22/18 15:48 Pleural Fluid Fungal Culture - Preliminary 01/22/18 15:51 Tissue-Other AFB Smear Concentration - Preliminary 01/22/18 15:51 Tissue-Other Mycobacterial Culture - Preliminary 01/22/18 15:48 Pleural Fluid AFB Smear Concentration - Preliminary 01/22/18 15:48 Pleural Fluid Mycobacterial Culture - Preliminary 01/22/18 16:00 Bronchial Washings - Right Upper Lobe AFB Smear Concentration - Preliminary 01/22/18 16:00 Bronchial Washings - Right Upper Lobe Mycobacterial Culture - Preliminary 01/17/18 21:30 Blood - Peripheral Venous Blood Culture - Final NO GROWTH AFTER 5 DAYS INCUBATION 01/17/18 18:45 Blood - Peripheral Venous Blood Culture - Final NO GROWTH AFTER 5 DAYS INCUBATION 01/17/18 12:20 Pleural Fluid Gram Stain - Final 01/17/18 12:20 Pleural Fluid Body Fluid Culture - Final NO GROWTH OF AEROBIC ORGANISMS AFTER 48 HOURS INCUBATION 01/17/18 12:20 Pleural Fluid Anaerobic Culture - Final NO ANAEROBES WERE ISOLATED 01/16/18 06:00 Sputum - Expectorated AFB Smear Concentration - Final 01/16/18 06:00 Sputum - Expectorated Direct Acid Fast Bacilli Smear - Final 01/16/18 06:00 Sputum - Expectorated Mycobacterial Culture - Preliminary 01/17/18 20:45 Urine - Urine Clean Catch Urine Culture - Final NO GROWTH OBTAINED 01/13/18 11:00 Sputum - Expectorated AFB Smear Concentration - Final 01/13/18 11:00 Sputum - Expectorated Direct Acid Fast Bacilli Smear - Final 01/13/18 11:00 Sputum - Expectorated Mycobacterial Culture - Preliminary 01/15/18 17:00 Sputum - Aerosol Induced AFB Smear Concentration - Final 01/15/18 17:00 Sputum - Aerosol Induced Direct Acid Fast Bacilli Smear - Final 01/15/18 17:00 Sputum - Aerosol Induced Mycobacterial Culture - Preliminary 01/17/18 12:20 Pleural Fluid MAGI Preparation - Preliminary 01/17/18 12:20 Pleural Fluid Fungal Culture - Preliminary 01/11/18 17:30 Blood - Peripheral Venous Blood Culture - Final NO GROWTH AFTER 5 DAYS INCUBATION 01/11/18 17:20 Blood - Peripheral Venous Blood Culture - Final NO GROWTH AFTER 5 DAYS INCUBATION 01/11/18 14:45 Nasopharyngeal Swab Influenza Types A,B Antigen (VALARIE) - Final 01/11/18 14:45 Nasopharyngeal Swab - Final 01/13/18 13:37 Sputum - Expectorated Gram Stain - Final 01/13/18 13:37 Sputum - Expectorated Sputum Culture - Final Yeast Like Organism 01/11/18 17:44 Sputum - Expectorated Gram Stain - Final 01/11/18 17:44 Sputum - Expectorated Sputum Culture - Final NORMAL RESPIRATORY ANNA 01/12/18 05:03 Urine - Urine Clean Catch Urine Culture - Final NO GROWTH OBTAINED 01/12/18 18:00 Urine For Antigen Detection Legionella Antigen - Final 01/12/18 18:00 Urine For Antigen Detection Streptococcus pneumoniae Antigen (M - Final 01/12/18 05:03 Urine For Antigen Detection Legionella Antigen - Final 01/12/18 05:03 Urine For Antigen Detection Streptococcus pneumoniae Antigen (M - Final Assessment: This is a 52 year old male with PMHx of DM, who presented to the ED with cough, shortness of breath, chest pain, night sweats, weight loss Plan: 1) Sepsis 2/2 pneumococcal pneumonia with possible empyema - POD#2 Bronchoscopy, right VATs, pneumolysis, partial decortication, drainage of empyema - CT with 120ml drainage yesterday - Continue Zosyn - F/u bronchial washings and cultures - Appreciate pulmonary consult - Appreciate ID consult - Appreciate CT surgery consult 2) Hx of latent Tb - Quant gold positive, 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 - New Patient This patient is new to me today: No - Critical Care Critical Care patient: No
--- NOTE | 2018-01-24 15:01 | PN ---
Progress Note (short form) - Note Progress Note: Thoracic Surgery: POD#2 s/p vats Pain controlled. CT without air-leak but suction was no adequated to maintain floatation of orange meter--now adjusted. Continue suction until tomorrow. Water seal evening. Likely dc tube Monday, ?convert to po abx for ~5-7 days if OK with ID team. Problem List - Problems (1) Pneumonia Code(s): J18.9 - PNEUMONIA, UNSPECIFIED ORGANISM Qualifiers: Pneumonia type: due to Pneumococcus Laterality: right Lung location: lower lobe of lung Qualified Code(s): J13 - Pneumonia due to Streptococcus pneumoniae (2) Pleural effusion associated with pulmonary infection Code(s): J18.9 - PNEUMONIA, UNSPECIFIED ORGANISM; J91.8 - PLEURAL EFFUSION IN OTHER CONDITIONS CLASSIFIED ELSEWHERE
--- NOTE | 2018-01-24 15:53 | PATH ---
Surgical Pathology Report Patient Name: YE WAGNER Med. Rec. #: [id number] /Age/Gender: 1965 (Age: 52) / M Account: [id number] Location: [facility] MED/SURG Taken: 01/22/2018 Received: 01/23/2018 Reported: 01/24/2018 Physicians: Edwin Jacobo ACNP Specimen(s) Received A: PLEURA BIOPSY/TISSUE B: PLEURA BIOPSY/TISSUE Clinical History Empyema Final Diagnosis A. PLEURA, BIOPSY: PLEURA WITH ACUTE AND CHRONIC INFLAMMATORY EXUDATE AND REACTIVE CHANGES. B. CONTENTS OF PLEURA, BIOPSY: ACUTE INFLAMMATORY EXUDATE CONSISTENT WITH EMPYEMA. Electronically Signed Ellen Frances M.D. Gross Description A. Received in formalin labeled "pleural biopsy," is a 3.8 x 3.3 x 0.6 cm aggregate of ley-brown soft tissue fragments admixed with blood clot. The specimen is entirely submitted in 2 cassettes. B. Received in formalin labeled "contents of pleura," is a 4.7 x 3.3 x 1.0 cm aggregate of ley-brown, irregular portions of purulent soft tissue. [employer] Lubricating Machine Operator sections are submitted in 4 cassettes. 01/23/201801/23/2018
[2018-01-24] MEDS: CHLORHEXIDINE GLUCONATE 4% CLEANSER FOR DECOLONIZATION TP SCH (21:24)
[2018-01-25] MEDS ORDERED: PT OWN MED DRAWER 7, Y5N ONE ×2 (01:59→14:19)
[2018-01-25] MEDS: oxyCODONE HCL 5 MG TABLET PO PRN ×2 (02:39→20:42)
[2018-01-25] MEDS: PIPERACILLIN/TAZOB 3.375 GM 3.375 GM in DEXTROSE 5%-WATER - 50 ML IVPB SCH ×2 (02:39→09:30)
[2018-01-25] MEDS: INSULIN SLIDING SCALE (NOVOLOG) 1 VIAL SQ SCH ×4 (06:30→21:00)
[2018-01-25] MEDS: glipiZIDE 5 MG TABLET (FP) PO SCH ×2 (06:30→17:12)
--- NOTE | 2018-01-25 08:36 | PN ---
Progress Note (short form) - Note Progress Note: Thoracic Surgery - Dr. Blakely POD#3 s/p Bronchoscopy, right vats, pneumolysis, partial decortication, drainage of empyema Resting comfortably. C/o mild incisional tenderness. Adequate pain control. Denies n/v/f/c, CP or SOB Last Vital Signs Temp Pulse Resp BP Pulse Ox 98 F 87 18 124/77 95 01/25/18 05:39 01/25/18 05:39 01/25/18 05:39 01/25/18 05:39 01/24/18 21:00 Problem List - Problems (1) Pleural effusion associated with pulmonary infection Assessment/Plan: Cont chest tube to suction at 40 Ordered tube to be placed on waterseal at 23:59 hours this evening. Likely dc tube 01/26/18 Convert to po abx for ~5-7 days if OK with ID team. Above discussed with Dr. Blakely and agrees. Code(s): J18.9 - PNEUMONIA, UNSPECIFIED ORGANISM; J91.8 - PLEURAL EFFUSION IN OTHER CONDITIONS CLASSIFIED ELSEWHERE
[2018-01-25] MEDS: HEPARIN NA (PORCINE) 5,000 UNITS/ML 1ML VIAL SQ SCH ×2 (09:30→20:59)
[2018-01-25] MEDS: MORPHINE SULFATE 10 MG/1 ML *VIAL IVPUSH PRN ×2 (09:44→17:13)
[2018-01-25] MEDS ORDERED: INSULIN (NOVOLOG) ASPART 100 UNITS/ML 10ML VIAL ONE (11:43)
--- NOTE | 2018-01-25 14:17 | PN ---
Progress Note (short form) - Note Progress Note: ID Post op day 2 VAT Remains on Zosyn Afebrile Selected Entries 01/25/18 08:56 Temperature 98.0 F Pulse Rate 100 H Respiratory 18 Rate Microbiology 01/22/18 15:51 Tissue-Other Gram Stain - Final 01/22/18 15:46 Pleural Fluid Gram Stain - Final 01/22/18 15:46 Pleural Fluid Anaerobic Culture - Final NO GROWTH OF AEROBIC ORGANISMS AFTER 48 HOURS INCUBATION NO ANAEROBES WERE ISOLATED 01/22/18 15:07 Bronchial Washings - Bilateral Lung Fluid Gram Stain - Final 01/22/18 15:07 Bronchial Washings - Bilateral Lung Fluid Bronchoalveolar Lavage Culture - Final 01/22/18 16:00 Bronchial Washings - Right Upper Lobe AFB Smear Concentration - Preliminary 01/22/18 16:00 Bronchial Washings - Right Upper Lobe Mycobacterial Culture - Preliminary 01/22/18 15:51 Tissue-Other MAGI Preparation - Preliminary 01/22/18 15:51 Tissue-Other Fungal Culture - Preliminary 01/22/18 15:51 Tissue-Other Anaerobic Culture - Preliminary NO AEROBIC GROWTH, 24 HRS No growth. 01/22/18 15:51 Tissue-Other AFB Smear Concentration - Preliminary 01/22/18 15:51 Tissue-Other Mycobacterial Culture - Preliminary 01/22/18 15:48 Pleural Fluid MAGI Preparation - Preliminary 01/22/18 15:48 Pleural Fluid Fungal Culture - Preliminary 01/22/18 15:48 Pleural Fluid AFB Smear Concentration - Preliminary 01/22/18 15:48 Pleural Fluid Mycobacterial Culture - Preliminary Laboratory Tests 01/19/18 01/24/18 06:30 05:35 WBC 11.6 H Hgb 8.7 L RDW 13.4 C-Reactive Protein 4.1 H Assessment Empyema S/P VAT culture negative Plan Removal of chest tube per surgery Switch to Augmentin 875 bid 7 days Kindly recall as needed Dariana NARANJO
--- NOTE | 2018-01-25 15:38 | PN ---
Progress Note (short form) - Note Progress Note: SUBJECTIVE: The patient was seen and examined at the bedside, he reports he is feeling better today POD#2 VATS procedure Current Medications Generic Name Dose Route Start Last Admin Trade Name Sophie PRN Reason Stop Dose Admin Acetaminophen 650 mg 01/23/18 19:47 Tylenol - PO Q6H PRN FEVER Chlorhexidine Gluconate 1 applic 01/23/18 22:00 01/23/18 21:22 Hibiclens For Decolonization - TP 1 applic HS MICHELLE Administration Docusate Sodium 100 mg 01/23/18 19:47 Colace - PO BID PRN CONSTIPATION Glipizide 5 mg 01/24/18 07:00 01/24/18 06:23 Glucotrol - PO 5 mg BID@0700,1630 MICHELLE Administration Heparin Sodium (Porcine) 5,000 unit 01/23/18 22:00 01/24/18 09:16 Heparin - SQ 5,000 unit BID MICHELLE Administration Piperacillin Sod/Tazobactam 50 mls @ 100 mls/hr 01/23/18 21:00 01/24/18 14:04 Sod 3.375 gm/ Dextrose IVPB 100 mls/hr Q6H-IV MICHELLE Administration Insulin Aspart 1 vial 01/23/18 22:00 01/24/18 11:51 Novolog Vial Sliding Scale - SQ 2 units ACHS MICHELLE Administration Protocol Morphine Sulfate 1 mg 01/23/18 19:47 01/24/18 12:47 Morphine Injection - IVPUSH 1 mg Q3H PRN Administration PAIN LEVEL 6-10 Oxycodone HCl 5 mg 01/23/18 19:47 01/24/18 14:01 Roxicodone - PO 5 mg Q6H PRN Administration PAIN LEVEL 1-5 OBJECTIVE: Vital Signs Period Temp Pulse Resp BP Sys/Jc Pulse Ox Last 24 Hr 97.8 F-98.8 F 83-98 10-18 109-132/65-83 97-99 Physical Exam: General: NAD, A&Ox3 Lungs: Diminished breath sounds on the right Heart: RRR, S1S2 Abd: Soft, non-tender, non-distended. Normoactive bowel sounds Ext: Warm, well-perfused. 2+ DP/PT bilaterally Neuro: CN 2-12 intact Assessment: This is a 52 year old male with PMHx of DM, who presented to the ED with cough, shortness of breath, chest pain, night sweats, weight loss Plan: 1) Sepsis 2/2 pneumococcal pneumonia with possible empyema - POD#3 Bronchoscopy, right VATs, pneumolysis, partial decortication, drainage of empyema - Chest tube to be placed on waterseal at 23:59 this evening; likely removal on 3/ - Continue Zosyn, can switch tomorrow to Augmentin 875mg po bid x7 days - F/u bronchial washings and cultures - Appreciate pulmonary consult - Appreciate ID consult - Appreciate CT surgery consult 2) Hx of latent Tb - Quant gold positive, 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 HIV 1&2 Ag/Ab, 4th Gen non-reactive 5) DM - BGM ACHS - ISS ACHS 6) F/E/N: - Monitor electrolytes - Diabetic diet 7) Prophylaxis: - Heparin 5,000u sq bid 8) Dispo: - Requires continued inpatient care CODE STATUS: FULL CODE Visit type - Emergency Visit Emergency Visit: Yes ED Registration Date: 01/11/18 Care time: The patient presented to the Emergency Department on the above date and was hospitalized for further evaluation of their emergent condition. - New Patient This patient is new to me today: No - Critical Care Critical Care patient: No
[2018-01-25] MEDS: AMOX TR/POT CLAV 875MG/125MG TABLETS (FP) PO SCH (17:12)
[2018-01-25] MEDS: CHLORHEXIDINE GLUCONATE 4% CLEANSER FOR DECOLONIZATION TP SCH (20:59)
[2018-01-26] MEDS: MORPHINE SULFATE 10 MG/1 ML *VIAL IVPUSH PRN ×2 (05:46→09:42)
[2018-01-26] MEDS: INSULIN SLIDING SCALE (NOVOLOG) 1 VIAL SQ SCH ×2 (05:59→11:59)
[2018-01-26] MEDS: glipiZIDE 5 MG TABLET (FP) PO SCH (06:15)
[2018-01-26 07:24] LABS: BASO % 1.2 % (0-2.0); EOS % 2.5 % (0-4.5); HEMATOCRIT 32.8 % (35.4-49); HEMOGLOBIN 11.1 GM/dL (11.7-16.9); LYMPH % 30.2 % (8-40); MCH 29.9 pg (25.7-33.7); MCHC 33.7 g/dl (32.0-35.9); MEAN CELL VOLUME 88.7 fl (80-96); MEAN PLT VOLUME 6.9 fl (7.5-11.1); MONO % 8.3 % (3.8-10.2); NEUT % 57.8 % (42.8-82.8); PLATELET COUNT 907 K/MM3 (134-434); RDW 13.5 % (11.9-15.9); WHITE BLOOD COUNT 10.4 K/mm3 (4.0-10.0)
--- NOTE | 2018-01-26 07:33 | PN ---
Progress Note (short form) - Note Progress Note: POD#4 Resting comfortably. C/o mild incisional tenderness. Adequate pain control. CxT placed to waterseal at midnight last night. Did very well overnight. Denies n/v/f/c, CP or SOB CXR 3/: no ptx Last Vital Signs Temp Pulse Resp BP Pulse Ox 98.2 F 81 18 134/79 95 01/26/18 05:24 01/26/18 05:24 01/26/18 05:24 01/26/18 05:24 01/25/18 21:00 Gen: nad Chest: dressing c/d/i. CxT remains on waterseal. No air leak Problem List - Problems (1) Pleural effusion associated with pulmonary infection Assessment/Plan: POD #4 s/p s/p Bronchoscopy, right vats, pneumolysis, partial decortication, drainage of empyema Per ID --> Augmentin 875 mg PO x7 days CxT dc'd on rounds Cont medical management f/u post-pull cxr --> if no ptx, surgery will s/o the case. Above discussed with Dr. Blakely and agrees. Problem List - Problems (1) Pleural effusion associated with pulmonary infection Code(s): J18.9 - PNEUMONIA, UNSPECIFIED ORGANISM; J91.8 - PLEURAL EFFUSION IN OTHER CONDITIONS CLASSIFIED ELSEWHERE
--- NOTE | 2018-01-26 07:55 | PN ---
Physical Exam: SUBJECTIVE: Patient seen and examined OBJECTIVE: Vital Signs Period Temp Pulse Resp BP Sys/Jc Pulse Ox Last 24 Hr 98.0 F-99.4 F 81-101 18-20 102-137/58-81 95-95 GENERAL: The patient is awake, alert, and fully oriented, in no acute distress. Thin, frail, cachectic. Temporal wasting. Skin warm and dry. Weak, ill-appearing LUNGS: Diminished breath sounds on right HEART: Regular rate and rhythm, S1, S2 ABDOMEN: Soft, nontender, nondistended, normoactive bowel sounds, no guarding, no rebound EXTREMITIES: 2+ pulses, warm, well-perfused, no edema. NEUROLOGICAL: Cranial nerves II through XII grossly intact. Normal speech, gait not observed. Laboratory Results - last 24 hr 01/25/18 01/25/18 01/25/18 11:28 16:20 20:45 WBC RBC Hgb Hct MCV MCH MCHC RDW Plt Count MPV Neutrophils % Lymphocytes % Monocytes % Eosinophils % Basophils % POC Glucometer 184 161 158 01/26/18 01/26/18 05:47 06:15 WBC 10.4 H RBC 3.70 L D Hgb 11.1 L D Hct 32.8 L D MCV 88.7 MCH 29.9 MCHC 33.7 RDW 13.5 Plt Count 907 H D MPV 6.9 L Neutrophils % 57.8 Lymphocytes % 30.2 Monocytes % 8.3 Eosinophils % 2.5 D Basophils % 1.2 POC Glucometer 140 Active Medications Generic Name Dose Route Start Last Admin Trade Name Freq PRN Reason Stop Dose Admin Acetaminophen 650 mg 01/23/18 19:47 01/25/18 20:42 Tylenol - PO 650 mg Q6H PRN Administration FEVER Amoxicillin/Clavulanate Potassium 1 tab 01/25/18 17:30 01/25/18 17:12 Augmentin - 875mg Tablet PO 1 tab BID@0800,1730 MICHELLE Administration Chlorhexidine Gluconate 1 applic 01/23/18 22:00 01/25/18 20:59 Hibiclens For Decolonization - TP Not Given HS MICHELLE Docusate Sodium 100 mg 01/23/18 19:47 Colace - PO BID PRN CONSTIPATION Glipizide 5 mg 01/24/18 07:00 01/26/18 06:15 Glucotrol - PO 5 mg BID@0700,1630 MICHELLE Administration Heparin Sodium (Porcine) 5,000 unit 01/23/18 22:00 01/25/18 20:59 Heparin - SQ 5,000 unit BID MICHELLE Administration Insulin Aspart 1 vial 01/23/18 22:00 01/26/18 05:59 Novolog Vial Sliding Scale - SQ Not Given ACHS [facility] Protocol Morphine Sulfate 1 mg 01/23/18 19:47 01/26/18 05:46 Morphine Injection - IVPUSH 1 mg Q3H PRN Administration PAIN LEVEL 6-10 Oxycodone HCl 5 mg 01/23/18 19:47 01/25/18 20:42 Roxicodone - PO 5 mg Q6H PRN Administration PAIN LEVEL 1-5 ASSESSMENT/PLAN: 52 year-old male with PMH significant for NIDDM. Admitted for multi-lobar pneumonia. Sepsis due to Strep pneumoniae multilobar PNA --01/16 CXR: progressive right infiltrate with new right pleural fluid; left lung is clear --01/11 CT chest: RLL, LLL, ZAKI infiltrates; small right pleural effusions one loculated --continues to spike fevers --d/c Zosyn (x 4 days) d/c Vanc (x 4 days); start ceftriaxone --ID following --pulm following r/o HIV --preliminarily positive, second test negative Hepatitic C --positive antibody r/o tuberculosis --Quant gold positive --01/13 AFB smear negative; two AFBs pending --Dr. Bowie spoke with [facility]: treated for latent TB - Nov 2012 to February 2013 - 12 weeks INH/rifampin Diabetes --HgbA1C 12.5 --seen and evaluated by endo, start glipizide --Novolog sliding scale FEN Fluids: PO intake adequate Electrolytes: replete as indicated Nutrition: diabetic diet, glucerna between meals DVT prophylaxis: subq heparin Physical therapy: strengthening exercises that can be done in isolation room Dispo: continues to require inpatient care. Full code. Assessment: This is a 52 year old male with PMHx of DM, who presented to the ED with cough, shortness of breath, chest pain, night sweats, weight loss Plan: 1) Sepsis 2/2 pneumococcal pneumonia with possible empyema - POD#3 Bronchoscopy, right VATs, pneumolysis, partial decortication, drainage of empyema - Chest tube to be placed on waterseal at 23:59 this evening; likely removal on 01/26 - Continue Zosyn, can switch tomorrow to Augmentin 875mg po bid x7 days - F/u bronchial washings and cultures - Appreciate pulmonary consult - Appreciate ID consult - Appreciate CT surgery consult 2) Hx of latent Tb - Quant gold positive, 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 HIV 1&2 Ag/Ab, 4th Gen non-reactive 5) DM - BGM ACHS - ISS ACHS 6) F/E/N: - Monitor electrolytes - Diabetic diet 7) Prophylaxis: - Heparin 5,000u sq bid 8) Dispo: - Requires continued inpatient care CODE STATUS: FULL CODE
[2018-01-26 08:06] LABS: CHLORIDE 99 mmol/L (98-107); POTASSIUM 5.2 mmol/L (3.5-5.1); SODIUM 136 mmol/L (136-145)
[2018-01-26 08:13] LABS: ALBUMIN 2.3 g/dl (3.4-5.0); ALK PHOS 302 U/L (45-117); ANION GAP 10 (8-16); BILIRUBIN,TOTAL 0.5 mg/dL (0.2-1.0); BLOOD UREA NITROGEN 9 mg/dL (7-18); CO2 27 mmol/L (21-32); CREATININE 0.5 mg/dL (0.7-1.3); GLUCOSE,RANDOM 134 mg/dL (74-106); SGOT/AST 54 U/L (15-37); SGPT/ALT 47 U/L (12-78); TOT PROT 8.8 g/dl (6.4-8.2)
[2018-01-26] MEDS: AMOX TR/POT CLAV 875MG/125MG TABLETS (FP) PO SCH (08:32)
[2018-01-26] MEDS: HEPARIN NA (PORCINE) 5,000 UNITS/ML 1ML VIAL SQ SCH (09:42)
--- NOTE | 2018-01-26 10:28 | SURG ---
Surgery Maintenance Engineer Note Maintenance Engineer: Vielka Nieto PA-C Date of Service: 01/22/18 Diagnosis: Empyema Procedure: Bronchoscopy, right vats, pneumolysis, partial decortication, drainage of empyema I was present for the entirety of the operative procedure. For further detail, please refer to operative report. Visit type - Case Type Case Type: ED Admission - Emergency Emergency Visit: Yes ED Registration Date: 01/11/18 Care time: The patient presented to the Emergency Department on the above date and was hospitalized for further evaluation of their emergent condition. - New patient This patient is new to me today: Yes Date on this admission: 01/26/18
[2018-01-26] MEDS ORDERED: INSULIN (NOVOLOG) ASPART 100 UNITS/ML 10ML VIAL ONE (11:25)
--- NOTE | 2018-01-26 12:00 | DS ---
Physical Exam: SUBJECTIVE: Patient seen and examined at bedside. Feels well. Chest tube out. Would very much like to go home. OBJECTIVE: Vital Signs Period Temp Pulse Resp BP Sys/Jc Pulse Ox Last 24 Hr 98.2 F-99.4 F 81-104 18-20 102-137/58-84 95-95 PHYSICAL EXAM GENERAL: The patient is awake, alert, and fully oriented, in no acute distress. LUNGS: Diminished breath sounds RLL. Chest tube site dressings c/d/i. HEART: Regular rate and rhythm, S1, S2 without murmur, rub or gallop. ABDOMEN: Soft, nontender, nondistended, normoactive bowel sounds, no guarding, no rebound, no hepatosplenomegaly, no masses. EXTREMITIES: 2+ pulses, warm, well-perfused, no edema. NEUROLOGICAL: Cranial nerves II through XII grossly intact. Normal speech Laboratory Results - last 24 hr 01/25/18 01/25/18 01/26/18 16:20 20:45 05:47 WBC RBC Hgb Hct MCV MCH MCHC RDW Plt Count MPV Neutrophils % Lymphocytes % Monocytes % Eosinophils % Basophils % Sodium Potassium Chloride Carbon Dioxide Anion Gap BUN Creatinine Creat Clearance w eGFR POC Glucometer 161 158 140 Random Glucose Calcium Total Bilirubin AST ALT Alkaline Phosphatase Total Protein Albumin 01/26/18 01/26/18 01/26/18 06:15 06:15 11:32 WBC 10.4 H RBC 3.70 L D Hgb 11.1 L D Hct 32.8 L D MCV 88.7 MCH 29.9 MCHC 33.7 RDW 13.5 Plt Count 907 H D MPV 6.9 L Neutrophils % 57.8 Lymphocytes % 30.2 Monocytes % 8.3 Eosinophils % 2.5 D Basophils % 1.2 Sodium 136 Potassium 5.2 H D Chloride 99 Carbon Dioxide 27 Anion Gap 10 BUN 9 Creatinine 0.5 L Creat Clearance w eGFR > 60 POC Glucometer 161 Random Glucose 134 H D Calcium 9.0 Total Bilirubin 0.5 D AST 54 H D ALT 47 D Alkaline Phosphatase 302 H D Total Protein 8.8 H D Albumin 2.3 L D HOSPITAL COURSE: Date of Admission:01/11/18 Date of Discharge: 01/26/18 52 year-old male with PMH significant for NIDDM. Admitted for multi-lobar pneumonia. Sepsis due to Strep pneumoniae multilobar PNA Loculated effusion --01/11 CT chest: RLL, LLL, ZAKI infiltrates; small right pleural effusions, one loculated --01/18 CT chest: loculated right-sided effusion with medial pleural-based hyperdense masses; consolidation/atelectasis with air bronchograms RLL; small infiltrate left base --01/22 bronchoscopy, right VATS, pneumolysis, partial decortication; drainage of empyema --treated with Zosyn (01/12-01/15); Vanc (01/11-01/15; 01/18-01/22); has been afebrile since 01/19 --WBC 19.3k on admission, steadily trended down, 10.4k at time of discharge --chest tube d/c'd 01/26; post-CXR no pneumo --outpatient f/u with Dr. Blakely r/o HIV --preliminarily positive, second test negative Hepatitic C --positive antibody --outpatient followup r/o tuberculosis --Quant gold positive --01/13 AFB smear negative; two AFBs pending --Dr. Bowie spoke with [facility]: treated for latent TB - Nov 2012 to February 2013 - 12 weeks INH/rifampin Diabetes --HgbA1C 12.5 --seen and evaluated by endo, start glipizide --Novolog sliding scale Minutes to complete discharge: 60 Discharge Summary Reason For Visit: DIABETES MELLITIS/HYPERGLYCEMIA/PNEUMON Current Active Problems Diabetes mellitus (Acute) Hyperglycemia (Acute) Pleural effusion associated with pulmonary infection (Acute) Pneumonia (Acute) Right-sided chest pain (Acute) Condition: Improved - Instructions Diet, Activity, Other Instructions: Do not remove the dressings on your chest for 3 days. It is VERY IMPORTANT that you get follow up care with two doctors: 1. You will need to follow up with Dr. Blakely to have your maxwell removed. Call his office on Monday morning to make an appointment. 2. An appointment has been made for you with Dr. Johnson at the [facility] [place]. The appointment is for MONDAY, JANUARY 29, 2018 AT 1:00PM. A prescription has been sent to your pharmacy for Augmentin. Take this medication as directed and be sure to finish all the medication. Return to the emergency department for any new or worsening symptoms. Referrals: Arben Johnson MD [Staff Physician] - 01/29/18 1:00 pm Soham Blakely MD [Staff Physician] - 1 Week Disposition: HOME - Home Medications Comprehensive Discharge Medication List: Ambulatory Orders Metformin HCl 500 mg PO BID #30 tablet 12/31/17 Amox-Tr/K Cl [Augmentin 875-125mg Tablet -] 1 tab PO BID@0800,1730 #14 tablet This patient is new to me today: No Emergency Visit: Yes ED Registration Date: 01/11/18 Care time: The patient presented to the Emergency Department on the above date and was hospitalized for further evaluation of their emergent condition. Critical Care patient: No - Discharge Referral Referred to [facility] Med P.C.: No
[2018-01-26 14:10] VITALS: BP 127/71; PULSE 90; TEMP 98.6
== END 2018-01-26 14:57 | disposition home or self-care (01) | DRG 710 ==
LOC: JER 14:01 → JERBED 19:52 → J5S 23:06 → J4W 01-12 21:04 → J8W 01-19 13:50 → JSAMEDAYSX 01-22 14:23 → JICU 01-22 18:32 → J7W 01-23 23:28
PROVIDERS: ADMIT Internal Medicine; ATTEND Nurse Practitioner Acute Care
PROC: 0W9930Z Drainage of Right Pleural Cavity with Drainage Device, Percutaneous Approach (ICD-10-PCS; 2018-01-17)
PROC: 0B9D8ZX Drainage of Right Middle Lung Lobe, Via Natural or Artificial Opening Endoscopic, Diagnostic (ICD-10-PCS; 2018-01-22)
PROC: 0W9940Z Drainage of Right Pleural Cavity with Drainage Device, Percutaneous Endoscopic Approach (ICD-10-PCS; 2018-01-22)
PROC: 0BNK4ZZ Release Right Lung, Percutaneous Endoscopic Approach (ICD-10-PCS; principal; 2018-01-22 14:00)
PROC: 0B9F8ZX Drainage of Right Lower Lung Lobe, Via Natural or Artificial Opening Endoscopic, Diagnostic (ICD-10-PCS; 2018-01-22 14:00)
DX: A41.9 Sepsis, unspecified organism (principal); J86.9 Pyothorax without fistula; J91.8 Pleural effusion in other conditions classified elsewhere; R64 Cachexia; J13 Pneumonia due to Streptococcus pneumoniae; E11.65 Type 2 diabetes mellitus with hyperglycemia; E87.1 Hypo-osmolality and hyponatremia; E87.5 Hyperkalemia; E58 Dietary calcium deficiency; R00.0 Tachycardia, unspecified; Z68.1 Body mass index [BMI] 19.9 or less, adult; B19.20 Unspecified viral hepatitis C without hepatic coma; Z87.891 Personal history of nicotine dependence; Z86.11 Personal history of tuberculosis; Z79.4 Long term (current) use of insulin; Z87.01 Personal history of pneumonia (recurrent); R07.9 Chest pain, unspecified; D72.829 Elevated white blood cell count, unspecified; D47.3 Essential (hemorrhagic) thrombocythemia; E83.39 Other disorders of phosphorus metabolism; B18.2 Chronic viral hepatitis C
CPT/HCPCS: 36415; 71045-TC-FY; 71046-TC-FY; 71250-TC; 76705-TC; 76942; 80048; 80053; 80074; 80076; 81003; 82009; 82042; 82105; 82150; 82438; 82550; 82945; 82962; 83036; 83605; 83615; 83690; 83735; 84100; 84157; 84311; 84443; 84478; 84484; 85025; 85027; 85610; 85651; 85730; 86140; 86480; 86850; 86900; 86901; 87040; 87070; 87075; 87086; 87102; 87116; 87205; 87206; 87210; 87389; 87522; 87536; 87804; 87899; 88108; 88305-TC; 89051; 93005; 93010; 94010; 94640; 94760; 94761; 97116-GP; 97161-GP; 99282-25; J1644

== ENCOUNTER 2018-02-01 23:04 | Observation (INO) | payer OTHER ==
--- NOTE | 2018-02-02 00:03 | PDOC ---
History of Present Illness - General Exam Limitations: No Limitations - History of Present Illness Initial Comments: 02/02/18 00:18 The patient is a 52 year old male, with a significant past medical history of diabetes mellitus, who presents to the emergency department with, pain to the surgical site on the right chest area s/p bronchoscopy on January 22, 2018 ( 11 days ago). The patient states he has been experiencing the pain in the right chest area around the surgical site since this morning upon waking up. He reports the pain is made worse with quick movements. The patient reports he took 3 tablets of Ibuprofen 800 mg earlier today with mild relief. The patient also reports he has had a productive cough with white sputum since January 11 when he was diagnosed with pneumonia and admitted to [facility]. He denies any recent fevers, chills, headache or dizziness. He denies any recent nausea, vomit, diarrhea or constipation. He denies any recent chest pain , palpitations or shortness of breath. He denies any recent dysuria, frequency, urgency or hematuria. Allergies: NKA <Bladimir Levy - Last Filed: 02/02/18 02:23> - General History Source: Patient <Santi White - Last Filed: 02/02/18 03:29> - General Chief Complaint: Pain Stated Complaint: SHORTNESS OF BREATH Time Seen by Provider: 02/01/18 23:44 Past History <Bladimir Levy - Last Filed: 02/02/18 02:23> - Past Medical History CVA: No COPD: No DVT: No Diabetes: Yes - Immunization History Immunization Up to Date: Yes - Suicide/Smoking/Psychosocial Hx Smoking History: Never smoked Have you smoked in the past 12 months: No If you are a former smoker, when did you quit?: 5yrs Information on smoking cessation initiated: No Hx Alcohol Use: No Drug/Substance Use Hx: No Substance Use Type: None <Santi White - Last Filed: 02/02/18 03:29> - Past Medical History Allergies/Adverse Reactions: Allergies Allergy/AdvReac Type Severity Reaction Status Date / Time No Known Allergies Allergy Verified 02/01/18 23:07 Home Medications: Ambulatory Orders Metformin HCl 500 mg PO BID #30 tablet 12/31/17 Amox-Tr/K Cl [Augmentin 875-125mg Tablet -] 1 tab PO BID@0800,1730 #14 tablet Review of Systems - Review of Systems Comments:: 02/02/18 00:19 CONSTITUTIONAL: Absent: fever, no chills, no fatigue EYES: Absent: visual changes ENT: Absent: ear pain, no sore throat CARDIOVASCULAR: Absent: chest pain, no palpitations RESPIRATORY: Present: (+) Productive cough with white sputum Absent: no SOB GI: Absent: abdominal pain, no nausea, no vomiting, no constipation, no diarrhea GENITOURINARY: Absent: dysuria, no frequency, no hematuria MUSKULOSKELETAL: Absent: back pain, no arthralgia, no myalgia SKIN: Present: (+) Pain to the right chest area near the surgical site s/p bronchoscopy Absent: rash NEURO: Absent: headache <Bladimir Levy - Last Filed: 02/02/18 02:23> *Physical Exam - Vital Signs Last Vital Signs Temp Pulse Resp BP Pulse Ox 98.1 F 101 H 20 140/88 96 02/01/18 23:07 02/01/18 23:07 02/01/18 23:07 02/01/18 23:07 02/01/18 23:07 - Physical Exam Comments: 02/02/18 00:23 GENERAL: (+) Mild distress. Well developed, well nourished. Awake and alert. HEENT: Normocephalic, atraumatic. PERRLA, EOMI. No conjunctival pallor. Sclera are non- icteric. Moist mucous membranes. Oropharynx is clear. NECK: Supple. Full ROM. No JVD. Carotid pulses 2+ and symmetric, without bruits. No thyromegaly. No lymphadenopathy. CARDIOVASCULAR: (+) Tachycardic. Regular rhythm. No murmurs, rubs, or gallops. Distal pulses are 2+ and symmetric. PULMONARY: (+) Lung sounds decreased bilaterally. No evidence of respiratory distress. No wheezing, rales or rhonchi. ABDOMINAL: Soft. Non-tender. Non-distended. No rebound or guarding. No organomegaly. Normoactive bowel sounds. MUSCULOSKELETAL Normal range of motion at all joints. No bony deformities or tenderness. No CVA tenderness. EXTREMITIES: No cyanosis. No clubbing. No edema. No calf tenderness. SKIN: (+) Two incisions; 9 maxwell and 4 maxwell. (+) Tenderness at the smaller incision with slight erythema to the wound but no discharge or surrounding erythema. Warm, dry. NEUROLOGICAL: Alert, awake, appropriate. Cranial nerves 2-12 intact. No deficits to light touch and temperature in face, upper extremities and lower extremities. No motor deficits in the in face, upper extremities and lower extremities. Normoreflexic in the upper and lower extremities. Normal speech. Toes are down- going bilaterally. Gait is normal without ataxia. PSYCHIATRIC: Cooperative. Good eye contact. Appropriate mood and affect. <Bladimir Levy - Last Filed: 02/02/18 02:23> - Vital Signs Last Vital Signs Temp Pulse Resp BP Pulse Ox 98.1 F 101 H 20 140/88 96 02/01/18 23:07 02/01/18 23:07 02/01/18 23:07 02/01/18 23:07 02/01/18 23:07 <Santi White - Last Filed: 02/02/18 03:29> Heart Score/ECG Review #1 02/02/18 02:24 Normal sinus rhythm at 72 bpm QT/QTc 380/416 ms EKG reviewed by Dr. White. <Bladimir Levy - Last Filed: 02/02/18 02:23> ED Treatment Course - RADIOLOGY Radiograph Interpretation: 02/02/18 02:09 EXAM: CHEST CT WITHOUT CONTRAST HISTORY: 52 year-old male status post bronchoscopy. COMPARISON: None. FINDINGS: Small right pneumothorax. Small right pleural effusion. Moderate nonspecific right lower lobe lung consolidation most likely due to pneumonia or aspiration pneumonia. Mild left basilar atelectasis scarring and pneumonia. Mild right upper lobe atelectasis scarring or pneumonia. Left upper lobe nonspecific spiculated 7 mm lung nodule or infiltrate axial image 43. Mediastinal and right hilar nonspecific lymphadenopathy may be reactive to infection other causes of lymphadenopathy or less likely. Lack of intravenous contrast limits this exam. Noncontrast evaluation of the upper abdomen appears unremarkable. Mild degenerative disc disease. IMPRESSION: Small right pneumothorax. Small right pleural effusion. Moderate nonspecific right lower lobe lung consolidation most likely due to pneumonia or aspiration pneumonia. Mild left basilar atelectasis scarring and pneumonia. Mild right upper lobe atelectasis scarring or pneumonia. Left upper lobe nonspecific spiculated 7 mm lung nodule or infiltrate. If clinically indicated followup evaluation may be needed. Mediastinal and right hilar nonspecific lymphadenopathy may be reactive to infection other causes of lymphadenopathy or less likely. If clinically indicated followup evaluation may be needed. A verbal report of the abnormal findings were discussed with Dr. White by Dr. Landeros at 1:58 AM EST February 02, 2018. This CT exam was performed using one or more of the following dose reduction techniques: automated exposure control, adjustment of the mA and/or kV according to patient size, use of iterative reconstruction technique. Reported by Abdoul Landeros MD <Bladimir Levy - Last Filed: 02/02/18 02:23> - LABORATORY CBC & Chemistry Diagram: 02/02/18 02:20 02/02/18 02:20 <Santi White - Last Filed: 02/02/18 03:29> *DC/Admit/Observation/Transfer - Attestations Scribe Attestion: 02/02/18 00:32 Documentation prepared by Bladimir Levy, acting as medical secretary for Santi White MD. <Bladimir Levy - Last Filed: 02/02/18 02:23> - Discharge Dispostion Admit: Yes <Santi White - Last Filed: 02/02/18 03:29> Diagnosis at time of Disposition: Pleural effusion associated with pulmonary infection Pneumonia Qualifiers: Pneumonia type: due to unspecified organism Laterality: right Lung location: middle lobe of lung Qualified Code(s): J18.1 - Lobar pneumonia, unspecified organism Pneumothorax Qualifiers: Encounter type: initial encounter - Discharge Dispostion Condition at time of disposition: Stable
[2018-02-02] MEDS ORDERED: AZITHROMYCIN 250 MG TABLET PO STA (02:06)
[2018-02-02 02:31] LABS: BASO % 1.3 % (0-2.0); EOS % 1.4 % (0-4.5); HEMATOCRIT 29.7 % (35.4-49); HEMOGLOBIN 10.2 GM/dL (11.7-16.9); LYMPH % 29.3 % (8-40); MCH 30.9 pg (25.7-33.7); MCHC 34.5 g/dl (32.0-35.9); MEAN CELL VOLUME 89.7 fl (80-96); MEAN PLT VOLUME 7.2 fl (7.5-11.1); MONO % 9.3 % (3.8-10.2); NEUT % 58.7 % (42.8-82.8); PLATELET COUNT 507 K/MM3 (134-434); RBC 3.31 M/mm3 (4.00-5.60); RDW 15.1 % (11.9-15.9); WHITE BLOOD COUNT 9.9 K/mm3 (4.0-10.0)
[2018-02-02] MEDS ORDERED: CEFTRIAXONE 1 GM/50 ML BAG ONE (02:39)
[2018-02-02] MEDS ORDERED: AZITHROMYCIN 500 MG TABLET ONE (02:44)
[2018-02-02 02:48] LABS: INR 1.1 (0.82-1.09); PROTHROMBIN TIME (PATIENT) 12.4 SEC (9.98-11.88)
[2018-02-02 03:16] LABS: ALBUMIN 2.5 g/dl (3.4-5.0); ANION GAP 9 (8-16); BILIRUBIN,TOTAL 0.3 mg/dL (0.2-1.0); BLOOD UREA NITROGEN 10 mg/dL (7-18); CALCIUM 8.5 mg/dL (8.5-10.1); CHLORIDE 104 mmol/L (98-107); CO2 24 mmol/L (21-32); CREATININE 0.6 mg/dL (0.7-1.3); GLUCOSE,RANDOM 177 mg/dL (74-106); POTASSIUM 4.8 mmol/L (3.5-5.1); SGOT/AST 40 U/L (15-37); SGPT/ALT 39 U/L (12-78); SODIUM 137 mmol/L (136-145); TOT PROT 8.2 g/dl (6.4-8.2)
[2018-02-02 03:19] LABS: ALK PHOS 298 U/L (45-117)
[2018-02-02] MEDS ORDERED: oxyCODONE HCL 5 MG TABLET PO PRN (05:10)
[2018-02-02] MEDS ORDERED: ACETAMINOPHEN 325 MG TABLET (FP) PO PRN ×2 (05:42→14:48)
[2018-02-02] MEDS ORDERED: HEPARIN NA (PORCINE) 5,000 UNITS/ML 1ML VIAL ONE (06:05)
--- NOTE | 2018-02-02 06:07 | HP ---
CHIEF COMPLAINT: worsening R sided chest pain x 1 day PCP: HISTORY OF PRESENT ILLNESS: Pt is a 52 yo M with PMHx of Hep C, NIDDM now s/p bronchoscopy on 01/22 presenting with R sided chest pain. The pain was 10/10, non pleuritic, located around site of his recent bronchoscopy on the R flank, and worsened with rapid movement. No palpitations or SOB. Pt has improving productive cough following treatment for multilobar PNA, during which he had VATS for loculated R sided lower and middle lobe empyema. No hx of fevers or chills, no n/v, no discharge from the site. The dressing is changed by the at home and was last changed the day of presentation. Pt feels clinically improved following inpatient treatment on vanc and zosyn, (discharged on 01/26 from [facility]) on a 7 day course of augmentin 875 bid (2 days doses pending). No dysuria, myalgias or change in bowel habit. ER course was notable for: (1) Tachycardia-101 >> 74( following) percocet, received 500mg iv azithromycin (2) EKG- NSR, rate 72/min, QTc-416 (3)CBC, CMP, coags 4) Chest CT-read by [facility] no comparison for them (Small right pneumothorax. Small right pleural effusion.) Compared to prior CT chest, there is marked improvement- pending formal reading (5) CXR- slight blunting of R costophrenic angle much improved from previous ( pending formal read) Recent Travel: PAST MEDICAL HISTORY: PAST SURGICAL HISTORY: Social History: Smoking:Former smoker- stopped 5 years ago. Started smoking at 19years- 3cigs/ day Alcohol:social- last drink3 months ago Drugs: Denies Family History: Allergies No Known Allergies Allergy (Verified 02/01/18 23:07) HOME MEDICATIONS: Home Medications Medication Instructions Recorded Metformin HCl 500 mg PO BID #30 tablet 12/31/17 REVIEW OF SYSTEMS CONSTITUTIONAL: Absent: fever, chills, diaphoresis, generalized weakness, malaise, loss of appetite, weight change HEENT: Absent: rhinorrhea, nasal congestion, throat pain, throat swelling, difficulty swallowing, mouth swelling, ear pain, eye pain, visual changes CARDIOVASCULAR: Absent: chest pain, syncope, palpitations, irregular heart rate, lightheadedness , peripheral edema RESPIRATORY: Absent: cough, shortness of breath, dyspnea with exertion, orthopnea, wheezing, stridor, hemoptysis GASTROINTESTINAL: Absent: abdominal pain, abdominal distension, nausea, vomiting, diarrhea, constipation, melena, hematochezia GENITOURINARY: Absent: dysuria, frequency, urgency, hesitancy, hematuria, flank pain, genital pain MUSCULOSKELETAL: Absent: myalgia, arthralgia, joint swelling, back pain, neck pain SKIN: Absent: rash, itching, pallor HEMATOLOGIC/IMMUNOLOGIC: Absent: easy bleeding, easy bruising, lymphadenopathy, frequent infections ENDOCRINE: Absent: unexplained weight gain, unexplained weight loss, heat intolerance, cold intolerance NEUROLOGIC: Absent: headache, focal weakness or paresthesias, dizziness, unsteady gait, seizure, mental status changes, bladder or bowel incontinence PSYCHIATRIC: Absent: anxiety, depression, suicidal or homicidal ideation, hallucinations. PHYSICAL EXAMINATION Vital Signs - 24 hr 02/01/18 02/02/18 23:07 03:58 Temperature 98.1 F 98.8 F Pulse Rate 101 H Pulse Rate [ 74 Left] Respiratory 20 16 Rate Blood Pressure 140/88 Blood Pressure 129/71 [Right Arm] O2 Sat by Pulse 96 100 Oximetry (%) GENERAL: Awake, alert, and fully oriented, in no acute respiratory distress. HEAD: Normal with no signs of trauma. EYES: Pupils equal, round and reactive to light, extraocular movements intact, sclera anicteric, conjunctiva clear. EARS, NOSE, THROAT: Ears normal, nares patent, oropharynx clear without exudates. Moist mucous membranes. NECK: Normal range of motion, supple without lymphadenopathy, JVD, or masses. LUNGS: R flank 2 clean healing surgical wounds. Inferior 2mm with maxwell, well opposed, no bleeding or exudates. Superior wound 4mm with maxwell, well opposed , no bleeding or exudates. Breath sounds reduced on R, No wheezes, and no crackles. No accessory muscle use. HEART: Regular rate and rhythm, normal S1 and S2 without murmur, rub or gallop. ABDOMEN: Soft, nontender, not distended, normoactive bowel sounds, no guarding, no rebound, no masses. MUSCULOSKELETAL: Normal range of motion at all joints. No bony deformities or tenderness. No CVA tenderness. UPPER EXTREMITIES: 2+ pulses, warm, well-perfused. No cyanosis. No clubbing. No peripheral edema. LOWER EXTREMITIES: 2+ pulses, warm, well-perfused. No calf tenderness. No peripheral edema. NEUROLOGICAL: Cranial nerves II-XII intact. Normal speech. Normal gait. PSYCHIATRIC: Cooperative. Good eye contact. Appropriate mood and affect. Laboratory Results - last 24 hr 02/02/18 02/02/18 02/02/18 02:20 02:20 02:20 WBC 9.9 RBC 3.31 L Hgb 10.2 L Hct 29.7 L MCV 89.7 MCH 30.9 MCHC 34.5 RDW 15.1 D Plt Count 507 H D MPV 7.2 L Neutrophils % 58.7 Lymphocytes % 29.3 Monocytes % 9.3 Eosinophils % 1.4 Basophils % 1.3 PT with INR 12.40 H INR 1.10 Sodium 137 Potassium 4.8 Chloride 104 Carbon Dioxide 24 Anion Gap 9 BUN 10 Creatinine 0.6 L Creat Clearance w eGFR > 60 Random Glucose 177 H D Calcium 8.5 Total Bilirubin 0.3 D AST 40 H D ALT 39 Alkaline Phosphatase 298 H Creatine Kinase 20 L Troponin I < 0.02 Total Protein 8.2 Albumin 2.5 L Ambulatory Orders Metformin HCl 500 mg PO BID #30 tablet 12/31/17 CT chest w/o contrast read by [facility]: FINDINGS: Small right pneumothorax. Small right pleural effusion. Moderate nonspecific right lower lobe lung consolidation most likely due to pneumonia or aspiration pneumonia. Mild left basilar atelectasis scarring and pneumonia. Mild right upper lobe atelectasis scarring or pneumonia. Left upper lobe nonspecific spiculated 7 mm lung nodule or infiltrate axial image 43. Mediastinal and right hilar nonspecific lymphadenopathy may be reactive to infection other causes of lymphadenopathy or less likely. Lack of intravenous contrast limits this exam. Noncontrast evaluation of the upper abdomen appears unremarkable. Mild degenerative disc disease. IMPRESSION: Small right pneumothorax. Small right pleural effusion. Moderate nonspecific right lower lobe lung consolidation most likely due to pneumonia or aspiration pneumonia. Mild left basilar atelectasis scarring and pneumonia. Mild right upper lobe atelectasis scarring or pneumonia. Left upper lobe nonspecific spiculated 7 mm lung nodule or infiltrate. If clinically indicated followup evaluation may be needed. Mediastinal and right hilar nonspecific lymphadenopathy may be reactive to infection other causes of lymphadenopathy or less likely. If clinically indicated followup evaluation may be needed. ASSESSMENT/PLAN: Pt is a 52 yo M with PMHx of Hep C, NIDDM now s/p bronchoscopy on 01/22 presenting with R sided chest pain. R sided chest pain s/p bronchoscopy: Most likely local pain at bronchoscopy site not likely ACS No signs of local/ systemic infection EKG- no acute ischemic changes, negative trops Day 5 on augmentin 875mg bid, complete 2 more days Pain mx- tylenol PO Primary team to determine if need for ID or cardiac consult Improved CT and CXR findings- pending formal read Trend trops CBC, CMP Repeat CT chest to confirm findings as needed Stop azithromycin DM: Hold metformin ISS ACHS BGM ACHS FEN: No need for fluids at this point Monitor lytes as needed Diabetic diet PPx: Heparin SQ Dispo: Obs- Med Surg Visit type - Emergency Visit Emergency Visit: Yes ED Registration Date: 02/02/18 Care time: The patient presented to the Emergency Department on the above date and was hospitalized for further evaluation of their emergent condition. - New Patient This patient is new to me today: No - Critical Care Critical Care patient: No Hospitalist Screening - Colonoscopy Questionnaire Colonoscopy Questionnaire: Colonoscopy Questionnaire - Patient: 50 - 75 years old and never had a screening colonoscopy: Yes History of colon or rectal polyps, or CA: Unknown History of IBD, Crohn's disease or UC: Unknown History of abdominal radiation therapy as a child: Unknown - Relative: 1 with colon or rectal CA, or polyps at age 60 or younger: Unknown Colon or rectal CA diagnosed at age 45 or younger: Unknown Multiple relatives with colon or rectal CA: Unknown - Outcome: Screening Result: Positive Screen
[2018-02-02] MEDS: INSULIN SLIDING SCALE (NOVOLOG) 1 VIAL SQ SCH ×2 (06:25→12:22)
[2018-02-02] MEDS ORDERED: INSULIN REGULAR HUMAN 100 UNITS/ML *VIAL ONE (06:27)
--- NOTE | 2018-02-02 06:41 | PN ---
Teaching Attending Note Name of Resident: Yajaira Baca ATTENDING PHYSICIAN STATEMENT I saw and evaluated the patient. Chart, data, imaging reviewed. I reviewed the resident's note and discussed the case with the resident. I agree with the resident's findings and plan as documented. SUBJECTIVE: 52 year old male, with a pmhx of latent TB (treated) recently admitted to hospital for right chest empyema , s/p decortication and bronchoscopy 01/22 which and cultures- bacterial, AFB which were negative to date. Patient was treated empirically with vancomycin/zosyn since 01/12 and was to complete a week of augmentin counting 01/25. Patient c/o sudden chest pain located in right side which started on 02/01 abruptly. It was pleuritic in nature, now resolved when I examined him. WOund s/p VATS appear to be healing well. No other trauma to chest. CT scan of chest read as small right sided pneumothorax. Pt denied any cough, fevers, chills, or discharge from surgical wound site. OBJECTIVE: Last Vital Signs Temp Pulse Resp BP Pulse Ox 98.8 F 74 16 129/71 100 02/02/18 03:58 02/02/18 03:58 02/02/18 03:58 02/02/18 03:58 02/02/18 03:58 General- NAD, aaox3, thin HEENT- at, nc, moist oral mucosa Neck -supple cv-s1+s2+ RRR chest - breath sounds on right chest compared to left, right chest wound sites with maxwell appear clean, dry, intact, no discharge abdomen- soft, nt, no masses appreciated skin- no rashes appreciated Abnormal Lab Results 02/02/18 02/02/18 02/02/18 02:20 02:20 02:20 RBC 3.31 L Hgb 10.2 L Hct 29.7 L Plt Count 507 H D MPV 7.2 L PT with INR 12.40 H Creatinine 0.6 L Random Glucose 177 H D AST 40 H D Alkaline Phosphatase 298 H Creatine Kinase [address] of chest - reviewed, [facility] read as small right sided pnuemothorax, loculated pleural effusion appears to be decreased significantly in size compared to pre-op chest CT EKG- Normal sinus rhythm, no acute ST- T changes ASSESSMENT AND PLAN: 52yo man recently treated for empyema with cultures showing no growth to date. 2 days of AUgmentin left. No clinical evidence of recurrent infection. Pleuritic chest pain resolved with normal ekg and negative troponin. Small right sided pneumothorax reported on 02/01 CT scan of chest likely as a direct result for recent thoracic surgery - however currently clinically asymptomatic. -observation -f/u official CT read -repeat CT of chest to evaluate pneumothorax progression and obtain size measurements -if increasing in size or patient becomes symptomatic, will have to place chest tube -continue augmentin for 2 more days -tylenol PRN if pain -DVT ppx- heparin sc diet -regular diet
--- NOTE | 2018-02-02 08:48 | EKG ---
Test Reason : Blood Pressure : / mmHG Vent. Rate : 072 BPM Atrial Rate : 072 BPM P-R Int : 148 ms QRS Dur : 082 ms QT Int : 380 ms P-R-T Axes : 067 004 055 degrees QTc Int : 416 ms NORMAL SINUS RHYTHM NORMAL ECG WHEN COMPARED WITH ECG OF 11-JAN-2018 18:11, NO SIGNIFICANT CHANGE WAS FOUND Confirmed by EARNEST CAZARES MD ([id number]) on 02/02/2018 8:47:58 AM Referred By: Confirmed By:EARNEST CAZARES MD
[2018-02-02 09:23] LABS: BASO % 1.2 % (0-2.0); EOS % 1.3 % (0-4.5); HEMATOCRIT 30.6 % (35.4-49); HEMOGLOBIN 10.3 GM/dL (11.7-16.9); LYMPH % 32.4 % (8-40); MCH 30.4 pg (25.7-33.7); MCHC 33.8 g/dl (32.0-35.9); MEAN CELL VOLUME 89.8 fl (80-96); MEAN PLT VOLUME 7.8 fl (7.5-11.1); MONO % 9.2 % (3.8-10.2); NEUT % 55.9 % (42.8-82.8); PLATELET COUNT 489 K/MM3 (134-434); RDW 15.1 % (11.9-15.9); WHITE BLOOD COUNT 8.6 K/mm3 (4.0-10.0)
[2018-02-02 09:35] LABS: INR 1.12 (0.82-1.09); PROTHROMBIN TIME (PATIENT) 12.7 SEC (9.98-11.88)
[2018-02-02 09:37] LABS: ACTIVATED PTT 40.5 SECONDS (26.9-34.4)
[2018-02-02 09:44] VITALS: BMI 16.3
[2018-02-02 09:50] LABS: ALBUMIN 2.5 g/dl (3.4-5.0); ANION GAP 6 (8-16); BLOOD UREA NITROGEN 11 mg/dL (7-18); CALCIUM 8.1 mg/dL (8.5-10.1); CHLORIDE 103 mmol/L (98-107); CO2 25 mmol/L (21-32); CREATININE 0.5 mg/dL (0.7-1.3); GLUCOSE,RANDOM 161 mg/dL (74-106); MAGNESIUM 1.7 mg/dL (1.8-2.4); PHOSPHOROUS 3.9 mg/dL (2.5-4.9); POTASSIUM 5.1 mmol/L (3.5-5.1); SGOT/AST 34 U/L (15-37); SGPT/ALT 34 U/L (12-78); SODIUM 134 mmol/L (136-145)
[2018-02-02 09:54] LABS: ALK PHOS 258 U/L (45-117); BILIRUBIN,TOTAL 0.6 mg/dL (0.2-1.0); TOT PROT 7.6 g/dl (6.4-8.2)
[2018-02-02] MEDS ORDERED: AMOX TR/POT CLAV 875MG/125MG TABLETS (FP) PO SCH (11:30)
[2018-02-02] MEDS ORDERED: MAGNESIUM OXIDE 400 MG TABLET (FP) PO ONE (11:30)
[2018-02-02 14:45] VITALS: BP 122/72; PULSE 79; TEMP 98.7
[2018-02-02] MEDS ORDERED: oxyCODONE HCL 5 MG TABLET PO ONE (14:56)
--- NOTE | 2018-02-02 14:56 | PN ---
Progress Note (short form) - Note Progress Note: Thoracic Surgery: Images reviewed. Look as expected or better for this point postop. Recommend improved pain control and close follow-up with me.
--- NOTE | 2018-02-02 15:24 | DS ---
Physical Examination Vital Signs: Vital Signs Temperature 98.7 F 02/02/18 14:44 Pulse Rate 79 02/02/18 14:44 Respiratory Rate 18 02/02/18 14:44 Blood Pressure 122/72 02/02/18 14:44 O2 Sat by Pulse Oximetry (%) 97 02/02/18 13:11 Labs: CBC, BMP 02/02/18 08:44 02/02/18 09:00 Discharge Summary Reason For Visit: PNEUMONIA PNEUMOTHORAX PLEURAL EFFUSION Current Active Problems Pleural effusion associated with pulmonary infection (Acute) Pneumonia (Acute) Pneumothorax (Acute) Hospital Course: Discussed CT findings with Dr. Blakely who states normal post-operative findings. Recommendation to discharge and follow-up in the office as scheduled on 02/12 Discussed with patient who states his pain is relieved at home with Tylenol. Condition: Improved - Instructions Diet, Activity, Other Instructions: Please return to the ED with new, persistent, or worsening symptoms. Please follow-up with providers as indicated. Pain relief: Ibuprofen 600mg q6h prn Acetaminophen 650mg po q6h prn Referrals: Allan Hernandez MD [Staff Physician] - 1 Week Arben Johnson MD [Staff Physician] - 1 Week Soham Blakely MD [Staff Physician] - (Please follow-up with Dr. Blakely as scheduled on 02/12/18) Disposition: HOME - Home Medications Comprehensive Discharge Medication List: Ambulatory Orders Metformin HCl 500 mg PO BID #30 tablet 12/31/17 Acetaminophen [Tylenol .Regular Strength -] 650 mg PO Q6H PRN tablet 02/02/18 Amox-Tr/K Cl [Augmentin 875-125mg Tablet -] 1 tab PO BID@0800,1730 tablet 02/02 Ibuprofen 600 mg PO Q6H PRN #1 tablet 02/02/18
[2018-02-02] MEDS ORDERED: HEPARIN NA (PORCINE) 5,000 UNITS/ML 1ML VIAL SQ SCH (22:00)
== END 2018-02-02 18:35 | disposition home or self-care (01) ==
LOC: JER 23:04 → INTOOBSV 02-02 03:29 → JERBED 02-02 03:29 → UNDOADMOB 02-02 03:29 → JERBED 02-02 03:35 → UNDOADMIN 02-02 03:35 → JERBED 02-02 05:10 → J6S 02-02 07:51
PROVIDERS: ADMIT Internal Medicine; ATTEND Registered Nurse
PROC: 3E03329 Introduction of Other Anti-infective into Peripheral Vein, Percutaneous Approach (ICD-10-PCS; principal; 2018-02-02)
PROC: 3E013GC Introduction of Other Therapeutic Substance into Subcutaneous Tissue, Percutaneous Approach (ICD-10-PCS; 2018-02-02)
DX: J18.1 Lobar pneumonia, unspecified organism (principal); J90 Pleural effusion, not elsewhere classified; G89.18 Other acute postprocedural pain; E11.9 Type 2 diabetes mellitus without complications; Z86.19 Personal history of other infectious and parasitic diseases; Z79.84 Long term (current) use of oral hypoglycemic drugs; Z86.11 Personal history of tuberculosis; J93.83 Other pneumothorax
CPT/HCPCS: 36415; 71046-TC-FY; 71250-TC; 80053; 82550; 82962; 83735; 84100; 84484; 85025; 85610; 85730; 87040; 93005; 93010; 96372; 96374; 99284-25; G0378; J1644

== ENCOUNTER 2018-02-12 16:12 | Emergency (ER) | payer OTHER ==
[2018-02-12 17:50] VITALS: BP 141/86; PULSE 80; TEMP 97.7; BMI 18.3
--- NOTE | 2018-02-12 17:53 | PDOC ---
Rapid Medical Evaluation Chief Complaint: Shortness of Breath Time Seen by Provider: 02/12/18 17:49 Medical Evaluation: Allergies Allergy/AdvReac Type Severity Reaction Status Date / Time No Known Allergies Allergy Verified 02/12/18 17:47 02/12/18 17:49 sent from PMD for abnormal CXR- VS pulse ox 96%, + SOB, Lungs dinminished to RLL- noted CXR with RLL infiltrate. Labs ordered : CBC, CMP, Blood Culture , Influenza swab 02/12/18 17:51 02/12/18 17:53
[2018-02-12 18:29] LABS: EOS % 0.7 % (0-4.5); HEMATOCRIT 34.5 % (35.4-49); HEMOGLOBIN 11.8 GM/dL (11.7-16.9); LYMPH % 27.2 % (8-40); MCH 30.6 pg (25.7-33.7); MCHC 34.1 g/dl (32.0-35.9); MEAN CELL VOLUME 89.9 fl (80-96); MEAN PLT VOLUME 7.9 fl (7.5-11.1); MONO % 7.7 % (3.8-10.2); NEUT % 63.4 % (42.8-82.8); PLATELET COUNT 343 K/MM3 (134-434); RBC 3.84 M/mm3 (4.00-5.60); RDW 16.1 % (11.9-15.9); WHITE BLOOD COUNT 12.7 K/mm3 (4.0-10.0)
[2018-02-12 19:07] LABS: ALBUMIN 3.3 g/dl (3.4-5.0); ALK PHOS 268 U/L (45-117); ANION GAP 4 (8-16); BILIRUBIN,TOTAL 0.8 mg/dL (0.2-1.0); BLOOD UREA NITROGEN 15 mg/dL (7-18); CALCIUM 8.9 mg/dL (8.5-10.1); CHLORIDE 96 mmol/L (98-107); CO2 31 mmol/L (21-32); CREATININE 0.6 mg/dL (0.7-1.3); GLUCOSE,RANDOM 221 mg/dL (74-106); POTASSIUM 4.4 mmol/L (3.5-5.1); SGOT/AST 53 U/L (15-37); SGPT/ALT 47 U/L (12-78); SODIUM 131 mmol/L (136-145); TOT PROT 8.8 g/dl (6.4-8.2)
--- NOTE | 2018-02-12 23:28 | PDOC ---
History of Present Illness - General History Source: Patient, Care Provider, Old Records Exam Limitations: No Limitations - History of Present Illness Initial Comments: 02/12/18 23:39 The patient is a 52 year old with significant history of recently admitted to hospital for R chest empyema s/p decortication and bronchoscopy 01/22, pleural effusion, pneumonia, and pneumothorax, last d/c'ed from hospital 02/02/18, sent to the ED for chest x-ray findings today. The patient was discharged from the hospital 02/02/18 after being seen by his CT surgeon. Chest x-ray was obtained by his PCP today. The chest x-ray, read and reviewed by Dr. Gomez, demonstrated the following findings: since the prior exam of 02/02/2018, there is progressive fluid with atelectasis or infiltrate at the right base. He was sent to the ED for further evaluation. On exam, the patient does report mild chest pain and fever with mild shortness of breath yesterday. He also expresses he has right chest sutures that require removal. No nausea, vomiting, or diarrhea. No peripheral edema, lightheadedness, or palpitations. PCP: Dr. Arben Johnson Cardiothoracic Surgeon: Dr. Blakely 02/13/18 01:12 <Tania Jasso - Last Filed: 02/13/18 01:12> <Alida Acevedo - Last Filed: 02/13/18 02:10> - General Chief Complaint: Shortness of Breath Stated Complaint: PCP SENT ABN CXR Time Seen by Provider: 02/12/18 17:49 Past History <Tania Jasso - Last Filed: 02/13/18 01:12> - Past Medical History CVA: No COPD: No DVT: No Diabetes: Yes - Surgical History Lung Surgery: Yes (S/P BRONCHOSCOPY01/22/18) - Immunization History Immunization Up to Date: Yes - Suicide/Smoking/Psychosocial Hx Smoking History: Never smoked Have you smoked in the past 12 months: No If you are a former smoker, when did you quit?: 5yrs Information on smoking cessation initiated: No Hx Alcohol Use: No Drug/Substance Use Hx: No Substance Use Type: None <Alida Acevedo - Last Filed: 02/13/18 02:10> - Past Medical History Allergies/Adverse Reactions: Allergies Allergy/AdvReac Type Severity Reaction Status Date / Time No Known Allergies Allergy Verified 02/12/18 17:47 Home Medications: Ambulatory Orders Metformin HCl 500 mg PO BID #30 tablet 12/31/17 Acetaminophen [Tylenol .Regular Strength -] 650 mg PO Q6H PRN tablet 02/02/18 Amox-Tr/K Cl [Augmentin 875-125mg Tablet -] 1 tab PO BID@0800,1730 tablet 02/02 Ibuprofen 600 mg PO Q6H PRN #1 tablet 02/02/18 Review of Systems - Review of Systems Able to Perform ROS?: Yes Comments:: 02/12/18 23:49 GENERAL/CONSTITUTIONAL: +Mild fever. No weakness. HEAD, EYES, EARS, NOSE AND THROAT: No change in vision. No ear pain or discharge. No sore throat. CARDIOVASCULAR: +Mild chest pain, mild SOB. No lightheadedness or palpitations. No peripheral edema. RESPIRATORY: No wheezing, or hemoptysis. GASTROINTESTINAL: No nausea, vomiting, diarrhea or constipation. GENITOURINARY: No dysuria, frequency, or change in urination. MUSCULOSKELETAL: No joint or muscle swelling or pain. No neck or back pain. SKIN: No rash NEUROLOGIC: No headache, vertigo, loss of consciousness, or change in strength/ sensation. ENDOCRINE: No increased thirst. No abnormal weight change. HEMATOLOGIC/LYMPHATIC: No anemia, easy bleeding, or history of blood clots. ALLERGIC/IMMUNOLOGIC: No hives or skin allergy. <Tania Jasso - Last Filed: 02/13/18 01:12> *Physical Exam - Vital Signs Last Vital Signs Temp Pulse Resp BP Pulse Ox 97.7 F 80 18 141/86 100 02/12/18 17:47 02/12/18 17:47 02/12/18 17:47 02/12/18 17:47 02/12/18 17:47 - Physical Exam Comments: 02/12/18 23:50 GENERAL: Awake, alert, and fully oriented, in no acute distress. Thin body habitus. HEAD: No signs of trauma EYES: PERRLA, EOMI, sclera anicteric, conjunctiva clear ENT: Auricles normal inspection, nares patent. Moist mucosa NECK: Normal ROM, supple, no JVD, or masses LUNGS: +Mild crackles at the right lung base. No evidence of respiratory distress. HEART: Regular rate and rhythm, normal S1 and S2, no murmurs, rubs or gallops ABDOMEN: Soft, nontender, normoactive bowel sounds. No guarding, no rebound. No masses EXTREMITIES: Normal range of motion, no edema. No clubbing or cyanosis. No cords, erythema, or tenderness NEUROLOGICAL: Alert and oriented x 3. Moves all extremities. Face is symmetric. SKIN: Warm, Dry, normal turgor. +Surgical incisions on right lateral chest wall. <Tania Jasso - Last Filed: 02/13/18 01:12> - Vital Signs Last Vital Signs Temp Pulse Resp BP Pulse Ox 97.7 F 80 18 141/86 100 02/12/18 17:47 02/12/18 17:47 02/12/18 17:47 02/12/18 17:47 02/12/18 17:47 <Alida Acevedo - Last Filed: 02/13/18 02:10> Heart Score/ECG Review #1 02/13/18 00:54 NSR at 78 bpm. Normal EKG. <Tania Jasso - Last Filed: 02/13/18 01:12> ED Treatment Course - LABORATORY CBC & Chemistry Diagram: 02/12/18 18:18 02/12/18 18:18 - ADDITIONAL ORDERS Additional order review: Laboratory Results 02/12/18 18:18 Sodium 131 L Potassium 4.4 Chloride 96 L Carbon Dioxide 31 D Anion Gap 4 L BUN 15 D Creatinine 0.6 L Creat Clearance w eGFR > 60 Random Glucose 221 H D Calcium 8.9 Total Bilirubin 0.8 D AST 53 H D ALT 47 D Alkaline Phosphatase 268 H Total Protein 8.8 H Albumin 3.3 L D 02/12/18 18:18 Influenza Types A,B Antigen (VALARIE) - Final Nasopharyngeal Swab - Final 02/12/18 18:18 RBC 3.84 L MCV 89.9 MCHC 34.1 RDW 16.1 H MPV 7.9 Neutrophils % 63.4 Lymphocytes % 27.2 Monocytes % 7.7 Eosinophils % 0.7 Basophils % 1.0 <Tania Jasso - Last Filed: 02/13/18 01:12> - LABORATORY CBC & Chemistry Diagram: 02/12/18 18:18 02/12/18 18:18 - ADDITIONAL ORDERS Additional order review: Laboratory Results 02/12/18 18:18 Sodium 131 L Potassium 4.4 Chloride 96 L Carbon Dioxide 31 D Anion Gap 4 L BUN 15 D Creatinine 0.6 L Creat Clearance w eGFR > 60 Random Glucose 221 H D Calcium 8.9 Total Bilirubin 0.8 D AST 53 H D ALT 47 D Alkaline Phosphatase 268 H Total Protein 8.8 H Albumin 3.3 L D 02/12/18 18:18 Influenza Types A,B Antigen (VALARIE) - Final Nasopharyngeal Swab - Final 02/12/18 18:18 RBC 3.84 L MCV 89.9 MCHC 34.1 RDW 16.1 H MPV 7.9 Neutrophils % 63.4 Lymphocytes % 27.2 Monocytes % 7.7 Eosinophils % 0.7 Basophils % 1.0 <Alida Acevedo - Last Filed: 02/13/18 02:10> *DC/Admit/Observation/Transfer - Attestations Scribe Attestion: 02/12/18 23:51 Documentation prepared by Tania Jasso, acting as medical lab technician for Alida Acevedo MD. <Tania Jasso - Last Filed: 02/13/18 01:12> <Alida Acevedo - Last Filed: 02/13/18 02:10> Diagnosis at time of Disposition: Diabetes mellitus Qualifiers: Diabetes mellitus type: other specified (including JAIME) Diabetes mellitus terminal operations supervisor insulin use: unspecified fpc insulin use status Diabetes mellitus complication status: with unspecified complications Qualified Code(s): E13.8 - Other specified diabetes mellitus with unspecified complications - Discharge Dispostion Disposition: HOME Condition at time of disposition: Stable - Referrals Referrals: Arben Johnson MD [Primary Care Provider] - - Patient Instructions Printed Discharge Instructions: DI for Diabetes Type 2 Additional Instructions: please follow up with your doctor return for any worsening problems with breathing,or if you develop fevers
--- NOTE | 2018-02-13 01:09 | PN ---
Teaching Attending Note Name of Resident: Ranjit London ATTENDING PHYSICIAN STATEMENT I saw and evaluated the patient. I reviewed the resident's note and discussed the case with the resident. I agree with the resident's findings and plan as documented. SUBJECTIVE: OBJECTIVE: ASSESSMENT AND PLAN:
--- NOTE | 2018-02-13 01:19 | HP ---
CHIEF COMPLAINT: cough, fever HISTORY OF PRESENT ILLNESS: 52 year old male with a history of diabetes mellitus, hepatitis C, R chest empyema s/p decortication/bronchoscopy on 01/22, pleural effusion, pneumothorax presented to the hospital after being sent by Dr. Blakely for an abnormal chest X ray. Patient states that he has been having a cough productive of white sputum for a couple of days that acutely worsened yesterday. He reports subjective fevers yesterday as well and mild chest pain. For this reason patient visited Dr. Blakely, who did a chest X ray that showed progressive fluid w/ atelectasis or infiltrate at the R base, and then sent the patient to the hospital. Patient received levoquin in the ED. Currently patient denies chest pain, SOB, fevers, chills, nausea, vomiting, diarrhea. States that he is still coughing productive of white sputum. ER course was notable for: (1) WBC 12.7 (2) Na 131 (3) Flu negative PAST MEDICAL HISTORY: DM, Hepatitis C PAST SURGICAL HISTORY: Social History: Smoking: quit 5 years Alcohol: Drugs: Family History: Allergies No Known Allergies Allergy (Verified 02/12/18 17:47) HOME MEDICATIONS: Home Medications Medication Instructions Recorded Metformin HCl 500 mg PO BID #30 tablet 12/31/17 Acetaminophen [Tylenol .Regular 650 mg PO Q6H PRN tablet 02/02/18 Strength -] Amox-Tr/K Cl [Augmentin 875-125mg 1 tab PO BID@0800,1730 tablet 02/02/18 Tablet -] Ibuprofen 600 mg PO Q6H PRN #1 tablet 02/02/18 REVIEW OF SYSTEMS CONSTITUTIONAL: Absent: fever, chills, diaphoresis, generalized weakness, malaise, loss of appetite, weight change HEENT: Absent: rhinorrhea, nasal congestion, throat pain, throat swelling, difficulty swallowing, mouth swelling, ear pain, eye pain, visual changes CARDIOVASCULAR: Absent: chest pain, syncope, palpitations, irregular heart rate, lightheadedness , peripheral edema RESPIRATORY: Absent: cough, shortness of breath, dyspnea with exertion, orthopnea, wheezing, stridor, hemoptysis GASTROINTESTINAL: Absent: abdominal pain, abdominal distension, nausea, vomiting, diarrhea, constipation, melena, hematochezia GENITOURINARY: Absent: dysuria, frequency, urgency, hesitancy, hematuria, flank pain, genital pain MUSCULOSKELETAL: Absent: myalgia, arthralgia, joint swelling, back pain, neck pain SKIN: Absent: rash, itching, pallor HEMATOLOGIC/IMMUNOLOGIC: Absent: easy bleeding, easy bruising, lymphadenopathy, frequent infections ENDOCRINE: Absent: unexplained weight gain, unexplained weight loss, heat intolerance, cold intolerance NEUROLOGIC: Absent: headache, focal weakness or paresthesias, dizziness, unsteady gait, seizure, mental status changes, bladder or bowel incontinence PSYCHIATRIC: Absent: anxiety, depression, suicidal or homicidal ideation, hallucinations. PHYSICAL EXAMINATION Vital Signs - 24 hr 02/12/18 17:47 Temperature 97.7 F Pulse Rate 80 Respiratory 18 Rate Blood Pressure 141/86 O2 Sat by Pulse 100 Oximetry (%) GENERAL: Awake, alert, and fully oriented, in no acute distress. HEAD: Normal with no signs of trauma. EYES: Pupils equal, round and reactive to light, extraocular movements intact, sclera anicteric, conjunctiva clear. No lid lag. EARS, NOSE, THROAT: Ears normal, nares patent, oropharynx clear without exudates. Moist mucous membranes. NECK: Normal range of motion, supple without lymphadenopathy, JVD, or masses. LUNGS: Breath sounds equal, clear to auscultation bilaterally. No wheezes, and no crackles. No accessory muscle use. HEART: Regular rate and rhythm, normal S1 and S2 without murmur, rub or gallop. ABDOMEN: Soft, nontender, not distended, normoactive bowel sounds, no guarding, no rebound, no masses. No hepatomegaly or splenomegaly. MUSCULOSKELETAL: Normal range of motion at all joints. No bony deformities or tenderness. No CVA tenderness. UPPER EXTREMITIES: 2+ pulses, warm, well-perfused. No cyanosis. No clubbing. No peripheral edema. LOWER EXTREMITIES: 2+ pulses, warm, well-perfused. No calf tenderness. No peripheral edema. NEUROLOGICAL: Cranial nerves II-XII intact. Normal speech. Normal gait. PSYCHIATRIC: Cooperative. Good eye contact. Appropriate mood and affect. SKIN: Warm, dry, normal turgor, no rashes or lesions noted, normal capillary refill. Laboratory Results - last 24 hr 02/12/18 02/12/18 18:18 18:18 WBC 12.7 H D RBC 3.84 L Hgb 11.8 D Hct 34.5 L MCV 89.9 MCH 30.6 MCHC 34.1 RDW 16.1 H Plt Count 343 D MPV 7.9 Neutrophils % 63.4 Lymphocytes % 27.2 Monocytes % 7.7 Eosinophils % 0.7 Basophils % 1.0 Sodium 131 L Potassium 4.4 Chloride 96 L Carbon Dioxide 31 D Anion Gap 4 L BUN 15 D Creatinine 0.6 L Creat Clearance w eGFR > 60 Random Glucose 221 H D Calcium 8.9 Total Bilirubin 0.8 D AST 53 H D ALT 47 D Alkaline Phosphatase 268 H Total Protein 8.8 H Albumin 3.3 L D ASSESSMENT/PLAN: Visit type - Emergency Visit Emergency Visit: Yes ED Registration Date: 02/13/18 Care time: The patient presented to the Emergency Department on the above date and was hospitalized for further evaluation of their emergent condition. - New Patient This patient is new to me today: Yes Date on this admission: 02/13/18 Hospitalist Screening - Colonoscopy Questionnaire Colonoscopy Questionnaire: Colonoscopy Questionnaire - Patient: 50 - 75 years old and never had a screening colonoscopy: Unknown History of colon or rectal polyps, or CA: Unknown History of IBD, Crohn's disease or UC: Unknown History of abdominal radiation therapy as a child: Unknown - Relative: 1 with colon or rectal CA, or polyps at age 60 or younger: Unknown Colon or rectal CA diagnosed at age 45 or younger: Unknown Multiple relatives with colon or rectal CA: Unknown - Outcome: Screening Result: Negative Screen
[2018-02-13] MEDS ORDERED: HEPARIN NA (PORCINE) 5,000 UNITS/ML 1ML VIAL SQ SCH (02:00)
--- NOTE | 2018-02-13 11:07 | EKG ---
Test Reason : Blood Pressure : / mmHG Vent. Rate : 073 BPM Atrial Rate : 073 BPM P-R Int : 134 ms QRS Dur : 080 ms QT Int : 382 ms P-R-T Axes : 064 005 069 degrees QTc Int : 420 ms NORMAL SINUS RHYTHM NORMAL ECG WHEN COMPARED WITH ECG OF 02-FEB-2018 02:11, NO SIGNIFICANT CHANGE WAS FOUND Confirmed by Lex Carnes ([id number]) on 02/13/2018 11:07:01 AM Referred By: Confirmed By:Lex Carnes
== END 2018-02-13 02:19 | disposition home or self-care (01) ==
LOC: SUPCPDRO 16:12 → JER 16:12 → UNDOADMOB 02-13 00:47 → JERBED 02-13 00:47 → JER 02-13 02:19
DX: R91.8 Other nonspecific abnormal finding of lung field (principal); E11.9 Type 2 diabetes mellitus without complications; Z79.84 Long term (current) use of oral hypoglycemic drugs; Z87.09 Personal history of other diseases of the respiratory system
CPT/HCPCS: 36415; 80053; 85025; 87040; 87804; 93005; 93010; 99282-25